=== PATIENT | male | born 1945 | race Caucasian/White ===

== ENCOUNTER → 2017-11-08 | Outpatient (REF) | payer MEDICARE, OTHER ==
[2017-11-08 16:51] LABS: HEMATOCRIT 37.5 % (42.0-52.0); HEMOGLOBIN 12.7 g/dl (14.0-18.0); MEAN CORPUSCULAR HEMOGLOBIN 30.3 pg (27.0-33.0); MEAN CORPUSCULAR HGB CONC 33.9 g/dl (32.0-36.5); MEAN CORPUSCULAR VOLUME 89.5 fl (80.0-96.0); PLATELET COUNT, AUTOMATED 256 10^3/uL (150-450); RED BLOOD COUNT 4.19 10^6/uL (4.30-6.10); RED CELL DISTRIBUTION WIDTH 13.6 % (11.5-14.5); WHITE BLOOD COUNT 10.1 10^3/uL (4.0-10.0)
[2017-11-08 17:08] LABS: ALBUMIN 3.6 GM/DL (3.2-5.2); ALBUMIN/GLOBULIN RATIO 1.03 (1.00-1.93); ALKALINE PHOSPHATASE 115 U/L (45-117); ALT/SGPT 25 U/L (12-78); ANION GAP 6 MEQ/L (8-16); AST/SGOT 19 U/L (7-37); BLOOD UREA NITROGEN 28 MG/DL (7-18); C REACTIVE PROTEIN QUANTITATIV 1.04 MG/DL (0.00-0.30); CALCIUM LEVEL 9.7 MG/DL (8.8-10.2); CARBON DIOXIDE LEVEL 30 MEQ/L (21-32); CHLORIDE LEVEL 97 MEQ/L (98-107); CREATININE FOR GFR 1.29 MG/DL (0.70-1.30); GLOMERULAR FILTRATION RATE 58.5 (>42); GLUCOSE, FASTING 239 MG/DL (70-100); POTASSIUM SERUM 4.9 MEQ/L (3.5-5.1); SODIUM LEVEL 133 MEQ/L (136-145); TOTAL PROTEIN 7.1 GM/DL (6.4-8.2)
[2017-11-08 17:12] LABS: ESTIMATED AVERAGE GLUCOSE 177 MG/DL (60-110); HEMOGLOBIN A1c 7.8 %
[2017-11-08 18:27] LABS: ERYTHROCYTE SEDIMENTATION RATE 56 mm/hr (0-20)
== END ==
LOC: M LAB REF 13:58
DX: E11.621 Type 2 diabetes mellitus with foot ulcer (principal)
CPT/HCPCS: 80053

== ENCOUNTER → 2017-11-22 | Outpatient (REF) | payer MEDICARE, OTHER | LOC: M LAB REF 16:59 | DX: E11.621 Type 2 diabetes mellitus with foot ulcer (principal) | CPT/HCPCS: 88304 ==

== ENCOUNTER → 2017-11-22 | Outpatient (CLI) | payer MEDICARE, OTHER | LOC: M RAD 08:14 | DX: E11.621 Type 2 diabetes mellitus with foot ulcer (principal); I70.209 Unspecified atherosclerosis of native arteries of extremities, unspecified extremity; I77.1 Stricture of artery | CPT/HCPCS: 93923 ==

== ENCOUNTER → 2017-12-06 | Outpatient (REF) | payer MEDICARE, OTHER | LOC: M LAB REF 16:44 | DX: E11.622 Type 2 diabetes mellitus with other skin ulcer (principal) | CPT/HCPCS: 87077; 87186 ==

== ENCOUNTER 2017-12-27 14:43 | Outpatient (CLI) | payer MEDICARE, OTHER ==
[2017-12-27] MEDS: VANCOMYCIN HCL 1,000 MG, VIAL MATE ADAPTER 1 EACH in D5W 250 ML IV (15:59)
[2017-12-27] MEDS: SODIUM CHLORIDE 0.9% INJ 10 ML SYR IV (17:08)
[2017-12-27] MEDS ORDERED: SODIUM CHLORIDE 0.9% INJ 10 ML SYR IV (18:00)
== END 2017-12-27 17:30 | disposition home or self-care (01) ==
LOC: M INFU 14:43
DX: M86.262 Subacute osteomyelitis, left tibia and fibula (principal); I12.9 Hypertensive chronic kidney disease with stage 1 through stage 4 chronic kidney disease, or unspecified chronic kidney disease; E78.00 Pure hypercholesterolemia, unspecified; E11.9 Type 2 diabetes mellitus without complications; K57.30 Diverticulosis of large intestine without perforation or abscess without bleeding; N18.3 Chronic kidney disease, stage 3 (moderate); Z79.4 Long term (current) use of insulin; Z79.899 Other long term (current) drug therapy; Z79.891 Long term (current) use of opiate analgesic
CPT/HCPCS: J3370

== ENCOUNTER → 2017-12-27 | Outpatient (CLI) | payer MEDICARE, OTHER | LOC: M RADPRO 12:06 | DX: M86.262 Subacute osteomyelitis, left tibia and fibula (principal) | CPT/HCPCS: 36569 ==

== ENCOUNTER → 2017-12-31 | Outpatient (CLI) | payer MEDICARE, OTHER ==
[2017-12-31 18:47] LABS: ANION GAP 6 MEQ/L (8-16); BLOOD UREA NITROGEN 23 MG/DL (7-18); CALCIUM LEVEL 8.9 MG/DL (8.8-10.2); CARBON DIOXIDE LEVEL 26 MEQ/L (21-32); CHLORIDE LEVEL 109 MEQ/L (98-107); CREATININE FOR GFR 1.51 MG/DL (0.70-1.30); GLOMERULAR FILTRATION RATE 48.7 (>42); GLUCOSE, FASTING 156 MG/DL (70-100); POTASSIUM SERUM 4.8 MEQ/L (3.5-5.1); SODIUM LEVEL 141 MEQ/L (136-145)
[2017-12-31 18:51] LABS: BASO % 0.4 % (0.0-1.0); EOS # 0.3 10^3/uL (0.0-0.50); EOS % 2.7 % (0.0-3.0); HEMATOCRIT 32.3 % (42.0-52.0); IMMATURE GRANULOCYTE % 0.3 % (0-3.0); LYMPH # 2.2 10^3/uL (1.5-4.5); LYMPH % 22.9 % (24.0-44.0); MEAN CORPUSCULAR HEMOGLOBIN 30.6 pg (27.0-33.0); MEAN CORPUSCULAR HGB CONC 34.1 g/dl (32.0-36.5); MONO # 0.7 10^3/uL (0.0-0.8); MONO % 7.1 % (0.0-5.0); NEUTROPHILS # 6.3 10^3/uL (1.8-7.7); NEUTROPHILS % 66.6 % (36.0-66.0); PLATELET COUNT, AUTOMATED 225 10^3/uL (150-450); RED BLOOD COUNT 3.59 10^6/uL (4.30-6.10); RED CELL DISTRIBUTION WIDTH 14.6 % (11.5-14.5); WHITE BLOOD COUNT 9.5 10^3/uL (4.0-10.0)
== END ==
LOC: M LAB 17:07
DX: I70.213 Atherosclerosis of native arteries of extremities with intermittent claudication, bilateral legs (principal)
CPT/HCPCS: 80048

== ENCOUNTER → 2018-01-04 | Outpatient (CLI) | payer MEDICARE, OTHER ==
[~2018-01-04] MED LIST: ACETAMINOPHEN 325 MG TAB As Ordered; HEPARIN 1,000 UNITS/ML 10ML VIAL (FOR RADIOLOGY& DIALYSIS ONLY) As Ordered; ISOVUE-300 61% 50ML VIAL (Q9967) As Ordered; MIDAZOLAM INJ 2 MG/2 ML VIAL (J2250) As Ordered; fentaNYL 100 MCG/2 ML INJECTION (J3010) As Ordered
== END | disposition home or self-care (01) ==
LOC: M IRPRO 06:07
DX: I70.244 Atherosclerosis of native arteries of left leg with ulceration of heel and midfoot (principal); L97.429 Non-pressure chronic ulcer of left heel and midfoot with unspecified severity; I70.245 Atherosclerosis of native arteries of left leg with ulceration of other part of foot; L97.529 Non-pressure chronic ulcer of other part of left foot with unspecified severity; N18.9 Chronic kidney disease, unspecified
CPT/HCPCS: 36247

== ENCOUNTER → 2018-01-15 | Outpatient (CLI) | payer MEDICARE, OTHER ==
[~2018-01-15] MED LIST changes: -ACETAMINOPHEN 325 MG TAB As Ordered; +PROTAMINE SULF INJ 50 MG/5 ML VIAL (J2720) As Ordered
== END | disposition home or self-care (01) ==
LOC: M IRPRO 06:27
DX: I70.292 Other atherosclerosis of native arteries of extremities, left leg (principal); E11.22 Type 2 diabetes mellitus with diabetic chronic kidney disease; I12.9 Hypertensive chronic kidney disease with stage 1 through stage 4 chronic kidney disease, or unspecified chronic kidney disease; N18.9 Chronic kidney disease, unspecified; E78.00 Pure hypercholesterolemia, unspecified
CPT/HCPCS: 37225

== ENCOUNTER 2018-01-17 10:21 | Outpatient (CLI) | payer MEDICARE, OTHER ==
[2018-01-17] MEDS: DALBAVANCIN 1,500 MG in D5W 250 ML IV (11:27)
[2018-01-17] MEDS: SODIUM CHLORIDE 0.9% INJ 10 ML SYR IV ×2 (12:34)
[2018-01-17] MEDS ORDERED: SODIUM CHLORIDE 0.9% INJ 10 ML SYR IV ×2 (18:00)
== END 2018-01-17 12:40 | disposition home or self-care (01) ==
LOC: M INFU 10:21
DX: M86.262 Subacute osteomyelitis, left tibia and fibula (principal); E11.9 Type 2 diabetes mellitus without complications; I12.9 Hypertensive chronic kidney disease with stage 1 through stage 4 chronic kidney disease, or unspecified chronic kidney disease; E78.00 Pure hypercholesterolemia, unspecified; G47.30 Sleep apnea, unspecified; N18.3 Chronic kidney disease, stage 3 (moderate); M54.2 Cervicalgia; Z97.4 Presence of external hearing-aid; Z79.891 Long term (current) use of opiate analgesic; Z79.899 Other long term (current) drug therapy
CPT/HCPCS: J0875

== ENCOUNTER 2018-01-21 13:11 | Outpatient (CLI) | payer MEDICARE, OTHER ==
[2018-01-21] MEDS: ALTEPLASE 2 MG/2 ML VIAL (J2997 PER 1MG) IV ×3 (13:22)
[2018-01-21] MEDS: SODIUM CHLORIDE 0.9% INJ 10 ML SYR IV ×3 (14:12)
[2018-01-21] MEDS ORDERED: SODIUM CHLORIDE 0.9% INJ 10 ML SYR IV ×3 (18:00)
== END 2018-01-21 14:30 | disposition home or self-care (01) ==
LOC: M INFU 13:11
DX: M86.262 Subacute osteomyelitis, left tibia and fibula (principal); E11.622 Type 2 diabetes mellitus with other skin ulcer; I12.9 Hypertensive chronic kidney disease with stage 1 through stage 4 chronic kidney disease, or unspecified chronic kidney disease; L97.323 Non-pressure chronic ulcer of left ankle with necrosis of muscle; E78.00 Pure hypercholesterolemia, unspecified; G47.30 Sleep apnea, unspecified; N18.3 Chronic kidney disease, stage 3 (moderate); M12.9 Arthropathy, unspecified; Z79.4 Long term (current) use of insulin; Z79.891 Long term (current) use of opiate analgesic; Z79.899 Other long term (current) drug therapy
CPT/HCPCS: J2997

== ENCOUNTER 2018-01-30 12:56 | Outpatient (CLI) | payer MEDICARE, OTHER ==
[2018-01-30] MEDS: DALBAVANCIN 1,500 MG in D5W 250 ML IV (14:20)
[2018-01-30] MEDS: SODIUM CHLORIDE 0.9% INJ 10 ML SYR IV (15:04)
[2018-01-30] MEDS ORDERED: SODIUM CHLORIDE 0.9% INJ 10 ML SYR IV (18:00)
== END 2018-01-30 15:15 | disposition home or self-care (01) ==
LOC: M INFU 12:56
DX: M86.662 Other chronic osteomyelitis, left tibia and fibula (principal); L97.323 Non-pressure chronic ulcer of left ankle with necrosis of muscle; Z79.899 Other long term (current) drug therapy; Z79.4 Long term (current) use of insulin; E11.622 Type 2 diabetes mellitus with other skin ulcer
CPT/HCPCS: J0875

== ENCOUNTER 2018-02-08 12:29 | Outpatient (CLI) | payer MEDICARE, OTHER ==
[2018-02-08] MEDS ORDERED: DALBAVANCIN 1,500 MG in D5W 250 ML IV (13:00)
[2018-02-08 14:00] LABS: ANION GAP 9 MEQ/L (8-16); BLOOD UREA NITROGEN 23 MG/DL (7-18); C REACTIVE PROTEIN QUANTITATIV 0.79 MG/DL (0.00-0.30); CARBON DIOXIDE LEVEL 25 MEQ/L (21-32); CHLORIDE LEVEL 107 MEQ/L (98-107); CREATININE FOR GFR 1.16 MG/DL (0.70-1.30); GLOMERULAR FILTRATION RATE > 60.0 (>42); GLUCOSE, FASTING 244 MG/DL (70-100); POTASSIUM SERUM 4.2 MEQ/L (3.5-5.1); SODIUM LEVEL 141 MEQ/L (136-145)
[2018-02-08 14:28] LABS: BASO # 0.1 10^3/uL (0.0-0.2); EOS # 0.2 10^3/uL (0.0-0.50); EOS % 3.6 % (0.0-3.0); HEMATOCRIT 30.5 % (42.0-52.0); HEMOGLOBIN 10.7 g/dl (13.5-17.5); IMMATURE GRANULOCYTE % 0.2 % (0-3.0); LYMPH # 1.3 10^3/uL (1.5-4.5); LYMPH % 20.4 % (24.0-44.0); MEAN CORPUSCULAR HGB CONC 35.1 g/dl (32.0-36.5); MEAN CORPUSCULAR VOLUME 88.4 fl (80.0-96.0); MONO # 0.5 10^3/uL (0.0-0.8); MONO % 7.8 % (0.0-5.0); NEUTROPHILS # 4.2 10^3/uL (1.8-7.7); PLATELET COUNT, AUTOMATED 175 10^3/uL (150-450); RED BLOOD COUNT 3.45 10^6/uL (4.30-6.10); RED CELL DISTRIBUTION WIDTH 13.2 % (11.5-14.5); WHITE BLOOD COUNT 6.2 10^3/uL (4.0-10.0)
[2018-02-08 15:03] LABS: ERYTHROCYTE SEDIMENTATION RATE 37 mm/hr (0-20)
[2018-02-11 15:31] LABS: ALBUMIN 3.6 GM/DL (3.2-5.2)
== END 2018-02-08 14:20 | disposition home or self-care (01) ==
LOC: M INFU 12:29
DX: M86.662 Other chronic osteomyelitis, left tibia and fibula (principal); L97.323 Non-pressure chronic ulcer of left ankle with necrosis of muscle; E11.622 Type 2 diabetes mellitus with other skin ulcer; Z79.899 Other long term (current) drug therapy; Z79.4 Long term (current) use of insulin
CPT/HCPCS: 82040

== ENCOUNTER → 2018-02-15 | Outpatient (CLI) | payer MEDICARE, OTHER | LOC: M RAD 12:27 | DX: I73.9 Peripheral vascular disease, unspecified (principal); Z98.61 Coronary angioplasty status; E11.622 Type 2 diabetes mellitus with other skin ulcer; L97.323 Non-pressure chronic ulcer of left ankle with necrosis of muscle | CPT/HCPCS: 93926 ==

== ENCOUNTER → 2018-02-19 | Outpatient (REF) | payer MEDICARE, OTHER ==
[2018-02-19 18:14] LABS: FERRITIN 105 NG/ML (26-388); IRON (FE) 49 UG/DL (65-175); PERCENT SATURATION 20.3 % (19.7-50.0); TOTAL IRON BINDING CAPACITY 241 UG/DL (250-450)
[2018-02-20 11:07] LABS: VITAMIN B12 LEVEL 639 PG/ML
== END ==
LOC: M LAB REF 17:19
DX: D64.9 Anemia, unspecified (principal); E11.622 Type 2 diabetes mellitus with other skin ulcer; L97.323 Non-pressure chronic ulcer of left ankle with necrosis of muscle
CPT/HCPCS: 82746

== ENCOUNTER → 2018-02-21 | Outpatient (REF) | payer MEDICARE, OTHER ==
[2018-02-21 15:42] LABS: BASO # 0.1 10^3/uL (0.0-0.2); BASO % 0.8 % (0.0-1.0); EOS # 0.3 10^3/uL (0.0-0.50); EOS % 3.2 % (0.0-3.0); HEMATOCRIT 32.6 % (42.0-52.0); HEMOGLOBIN 10.8 g/dl (13.5-17.5); IMMATURE GRANULOCYTE % 0.9 % (0-3.0); LYMPH # 1.7 10^3/uL (1.5-4.5); LYMPH % 21.6 % (24.0-44.0); MEAN CORPUSCULAR HEMOGLOBIN 30.7 pg (27.0-33.0); MEAN CORPUSCULAR HGB CONC 33.1 g/dl (32.0-36.5); MEAN CORPUSCULAR VOLUME 92.6 fl (80.0-96.0); MONO # 0.7 10^3/uL (0.0-0.8); MONO % 8.3 % (0.0-5.0); NEUTROPHILS # 5.2 10^3/uL (1.8-7.7); NEUTROPHILS % 65.2 % (36.0-66.0); PLATELET COUNT, AUTOMATED 228 10^3/uL (150-450); RED BLOOD COUNT 3.52 10^6/uL (4.30-6.10); RED CELL DISTRIBUTION WIDTH 13.8 % (11.5-14.5); WHITE BLOOD COUNT 7.9 10^3/uL (4.0-10.0)
[2018-02-21 16:17] LABS: C REACTIVE PROTEIN QUANTITATIV 1.56 MG/DL (0.00-0.30)
[2018-02-21 16:18] LABS: ERYTHROCYTE SEDIMENTATION RATE 52 mm/hr (0-20)
== END ==
LOC: M SFHCWOUN 13:04
DX: M86.262 Subacute osteomyelitis, left tibia and fibula (principal); E11.622 Type 2 diabetes mellitus with other skin ulcer; L97.323 Non-pressure chronic ulcer of left ankle with necrosis of muscle; B95.2 Enterococcus as the cause of diseases classified elsewhere
CPT/HCPCS: 86140

== ENCOUNTER → 2018-03-01 | Outpatient (CLI) | payer MEDICARE, OTHER | LOC: M RAD 07:36 | DX: N28.1 Cyst of kidney, acquired (principal); N18.3 Chronic kidney disease, stage 3 (moderate); E11.22 Type 2 diabetes mellitus with diabetic chronic kidney disease; E11.621 Type 2 diabetes mellitus with foot ulcer; L97.323 Non-pressure chronic ulcer of left ankle with necrosis of muscle; I70.1 Atherosclerosis of renal artery; I15.0 Renovascular hypertension | CPT/HCPCS: 76775 ==

== ENCOUNTER → 2018-03-05 | Outpatient (REF) | payer MEDICARE, OTHER ==
[2018-03-05 15:45] LABS: BASO # 0.1 10^3/uL (0.0-0.2); BASO % 0.7 % (0.0-1.0); EOS # 0.2 10^3/uL (0.0-0.50); EOS % 2.2 % (0.0-3.0); HEMATOCRIT 34.1 % (42.0-52.0); HEMOGLOBIN 11.3 g/dl (13.5-17.5); IMMATURE GRANULOCYTE % 0.7 % (0-3.0); LYMPH # 1.4 10^3/uL (1.5-4.5); LYMPH % 18.1 % (24.0-44.0); MEAN CORPUSCULAR HEMOGLOBIN 30.5 pg (27.0-33.0); MEAN CORPUSCULAR HGB CONC 33.1 g/dl (32.0-36.5); MEAN CORPUSCULAR VOLUME 91.9 fl (80.0-96.0); MONO # 0.7 10^3/uL (0.0-0.8); MONO % 9.5 % (0.0-5.0); NEUTROPHILS # 5.2 10^3/uL (1.8-7.7); NEUTROPHILS % 68.8 % (36.0-66.0); PLATELET COUNT, AUTOMATED 229 10^3/uL (150-450); RED BLOOD COUNT 3.71 10^6/uL (4.30-6.10); RED CELL DISTRIBUTION WIDTH 12.7 % (11.5-14.5); WHITE BLOOD COUNT 7.6 10^3/uL (4.0-10.0)
[2018-03-05 16:01] LABS: ESTIMATED AVERAGE GLUCOSE 171 MG/DL (60-110); HEMOGLOBIN A1c 7.6 %
[2018-03-05 16:07] LABS: ANION GAP 7 MEQ/L (8-16); BLOOD UREA NITROGEN 19 MG/DL (7-18); C REACTIVE PROTEIN QUANTITATIV 3.37 MG/DL (0.00-0.30); CALCIUM LEVEL 8.5 MG/DL (8.8-10.2); CARBON DIOXIDE LEVEL 30 MEQ/L (21-32); CHLORIDE LEVEL 107 MEQ/L (98-107); CREATININE FOR GFR 1.08 MG/DL (0.70-1.30); GLOMERULAR FILTRATION RATE > 60.0 (>42); GLUCOSE, FASTING 146 MG/DL (70-100); POTASSIUM SERUM 4.3 MEQ/L (3.5-5.1); SODIUM LEVEL 144 MEQ/L (136-145)
== END ==
LOC: M SFHCPLAZ 13:37
DX: L97.323 Non-pressure chronic ulcer of left ankle with necrosis of muscle (principal); E11.622 Type 2 diabetes mellitus with other skin ulcer
CPT/HCPCS: 83036

== ENCOUNTER → 2018-03-07 | Outpatient (REF) | payer MEDICARE, OTHER | LOC: M LAB REF 16:49 | DX: E11.622 Type 2 diabetes mellitus with other skin ulcer (principal); L97.323 Non-pressure chronic ulcer of left ankle with necrosis of muscle | CPT/HCPCS: 87070; 87186 ==

== ENCOUNTER → 2018-08-08 | Outpatient (CLI) | payer MEDICARE, OTHER ==
[~2018-08-08] MED LIST changes: +ACID1CAP PO; +ATEN25TA PO; +ATOR1TAB19 PO; +CALC1TAB5 PO; +CLOP75TA2 PO; +DONETAB6 PO; +FERR325T3 PO; +FINA5TAB2 PO; +FURO20TA2 PO; +FURO40TA2 PO; +GABA-843 PO; -HEPARIN 1,000 UNITS/ML 10ML VIAL (FOR RADIOLOGY& DIALYSIS ONLY) As Ordered; +INSUH10VL SC; -ISOVUE-300 61% 50ML VIAL (Q9967) As Ordered; +LEVE1INJ5 SC; -MIDAZOLAM INJ 2 MG/2 ML VIAL (J2250) As Ordered; +MULT1TAB8 PO; -PROTAMINE SULF INJ 50 MG/5 ML VIAL (J2720) As Ordered; +TRAM50TA2 PO; +TYLE325C PO; +VITA500T PO; -fentaNYL 100 MCG/2 ML INJECTION (J3010) As Ordered
--- NOTE | 2018-08-08 14:29 | REP ---
Left lower extremity arterial Doppler ultrasound: History: Status post atherectomy and angioplasty . Ankle ulcer. Sonographic findings: Ankle brachial index could not be obtained due to ankle dressing and calcified vessel. Significant plaquing is seen as before. Velocities acquired are similar to the those seen February 06, 2018. Velocity chart left lower extremity: Left SEED COLLECTOR 102 cm/S, profunda 65, proximal SFA 78-105, mid SFA 78, distal SFA 152-171, popliteal and 25, proximal AT A 34, tibioperoneal trunk 94, proximal BLASTING CONTRACT MINER 33, distal BLASTING CONTRACT MINER 26, distal SARAH 105. Electronically Signed by Jagdeep More MD 08/08/2018 03:13 P
== END ==
LOC: M RAD 12:16
PROVIDERS: ATTEND Surgery Vascular Surgery
DX: I73.9 Peripheral vascular disease, unspecified (principal)
CPT/HCPCS: 15275; 93926; Q4131

== ENCOUNTER → 2019-03-25 | Outpatient (CLI) | payer MEDICARE, OTHER ==
--- NOTE | 2019-03-25 19:32 | REP ---
LEFT LOWER EXTREMITY DUPLEX DOPPLER ARTERIAL ULTRASOUND: Real-time ultrasound evaluation and duplex Doppler interrogation of both lower extremity arterial systems is performed and compared to prior study of 08/08/2018. There is again significant plaque seen in the proximal left superficial femoral artery with stenosis of the proximal and distal superficial femoral artery. This appears similar to the prior study. There is new occlusion of the distal left posterior tibial artery. Diffuse biphasic wave forms are seen except for monophasic wave form in the distal anterior tibial artery. LEFT Common femoral artery 94.3 cm/s Profunda 63.4 cm/s Proximal SFA 109 cm/s Mid SFA 107.7 cm/s Distal SFA 187 cm/s Popliteal 97 cm/s Proximal SARAH 56.4 cm/s Tibioperoneal trunk 112.8 cm/s Proximal BALANCE TRUING INSPECTOR 51.3 cm/s Distal BALANCE TRUING INSPECTOR occluded Distal SARAH 111.2 cm/s IMPRESSION: Stenosis left superficial femoral artery appears similar to the prior study. There is new occlusion of the distal left posterior tibial artery. Electronically Signed by Nate Alba MD 03/26/2019 10:58 A
== END ==
LOC: M RAD 14:19
PROVIDERS: ATTEND Surgery Vascular Surgery
DX: I70.243 Atherosclerosis of native arteries of left leg with ulceration of ankle (principal)

== ENCOUNTER 2020-02-09 02:10 | Inpatient (IN) | payer MEDICARE, OTHER ==
[2020-02-09] VITALS (9 sets, daily range): BP systolic 135–177; BP diastolic 58–67; O2SAT 100
[~2020-02-09] VITALS: Ht 162.6 cm; Wt 87.2 kg
[~2020-02-09 02:10] MED LIST changes: +GABA-282 PO; -GABA-843 PO; +VITA-243 PO; -VITA500T PO
[2020-02-09] MEDS ORDERED: CINN1CAP6 PO (06:25)
[2020-02-09] MEDS ORDERED: ACIDTAB3 PO (06:25)
[2020-02-09] MEDS ORDERED: CALCCAP4 PO (06:25)
[2020-02-09] MEDS ORDERED: BYDU2INJ7 SC (06:25)
[2020-02-09] MEDS ORDERED: RA M200C4 PO (06:25)
[2020-02-09] MEDS ORDERED: HYDR-3910 PO (06:25)
[2020-02-09] MEDS ORDERED: ACET1TAB55 PO (06:25)
[2020-02-09] MEDS ORDERED: ZINC1TAB2 PO (06:25)
[2020-02-09] MEDS ORDERED: VITA200010 PO (06:25)
[2020-02-09] MEDS ORDERED: RAMI1CAP21 PO (06:27)
--- NOTE | 2020-02-09 06:38 | HPEPDOC ---
[facility] Medical History & Physical Date of Admission Feb 09, 2020 Date of Service: Feb 09, 2020 Attending Physician: RHONDA BRIGGS MD History and Physical CHIEF COMPLAINT: Transferred for osteomyelitis HISTORY OF PRESENT ILLNESS: 74-year-old male with past medical history of diabet es mellitus, chronic kidney disease, hypertension and recurrent diabetic foot infections is transferred to [facility] for gangrene and osteomyelitis of right foot. Patient reports infection of second toe on the right foot 3 weeks ago, being treated by PCP with oral antibiotics, continued to worsen until the digit started becoming black 5 days ago and progressively wor sening with swelling, redness and pain in the foot. He was transferred to [facility] for podiatry evaluation for possible surgical intervention. Patient denies any fever, has no other symptoms at this time. He denies chest pain, nausea, vomiting, diarrhea or constipation. 10 point review of system is negative except for above PAST MEDICAL HISTORY: 1. Diabetes mellitus. 2. Chronic kidney disease. 3. Hypertension. 4. Diabetic foot infections PAST SURGICAL HISTORY: 1. Tonsillectomy. SOCIAL HISTORY: Previous smoker. Previous alcohol use. Denies drug use FAMILY HISTORY: Positive for heart disease ALLERGIES: Please see below. HOME MEDICATIONS: Please see below. PHYSICAL EXAMINATION: VITAL SIGNS: Please see below. GENERAL: No distress HEENT: Normocephalic, atraumatic, moist mucous membranes NECK: Supple CARDIOVASCULAR EXAMINATION: S1, S2, no murmurs RESPIRATORY EXAMINATION: Scattered rhonchi, diminished in the bases, no wheezing ABDOMINAL EXAMINATION: Soft, nontender, nondistended, positive bowel sounds EXTREMITIES: Right foot second digit with dry gangrene, surrounding erythema, swelling and tenderness to palpation SKIN: No rash NEUROLOGICAL EXAMINATION: Alert and oriented 3, no focal deficits PSYCHIATRIC EXAMINATION: Calm and cooperative LABORATORY DATA: See below. IMAGING: CT from transferring facility is compatible with osteomyelitis in second toe of right foot MICROBIOLOGY: Please see below. ASSESSMENT: 74-year-old male with multiple medical comorbidities including diabetes mellitus, chronic kidney disease, hypertension and diabetic foot wounds is being admitted for dry gangrene and osteomyelitis of right foot. PLAN: 1. Osteomyelitis. With dry gangrene of second digit in the right foot, worsening infection over the past 3 weeks, failed outpatient oral antibiotics, CT from transferring facility, consistent with osteomyelitis, creatinine elevated, baseline unknown, has history of chronic kidney disease, will avoid vancomycin for that reason, Zyvox/cefepime, cultures pending, podiatry consulted (Dr. Mariano). 2. Diabetes mellitus. Sliding scale insulin coverage every 6 hours 3. Hypertension. Continue hydralazine and atenolol. 4. Peripheral vascular disease. Continue Plavix and statin. 5. Chronic kidney disease. Creatinine 2.0, unknown baseline, hold Lasix and lisinopril, will trend. DVT prophylaxis: Heparin subcutaneous. GI prophylaxis: Not needed Home Medications Scheduled Ascorbic Acid (Vitamin C) 500 Mg Tab, 500 MG PO DAILY Atenolol (Atenolol) 25 Mg Tab, 25 MG PO DAILY Atorvastatin Calcium (Atorvastatin Calcium) 10 Mg Tab, 10 MG PO DAILY Calcium Carbonate/Vitamin D3 (Calcium 600 + Vit D 400 Softgl) 1 Each Capsule, 1 CAP PO DAILY Cholecalciferol (Vitamin D3) (Vitamin D3) 50 Mcg Tablet, 50 MCG PO BID Cinnamon Bark/Chromium Picolin (Cinnamon Plus Chromium Capsule) 1 Each Capsule, 1 CAP PO BID Clopidogrel Bisulfate (Clopidogrel) 75 Mg Tab, 75 MG PO DAILY Donepezil Hcl (Donepezil HCl Odt) 10 Mg Tab, 10 MG PO BID Exenatide Microspheres (Bydureon Bcise) 2 Mg/0.85 Ml Auto.injct, 2 MG SC Q7D SUNDAY Ferrous Sulfate (Ferrous Sulfate) 325 Mg Tab, 325 MG PO DAILY Finasteride (Finasteride) 5 Mg Tab, 5 MG PO DAILY Furosemide (Furosemide) 20 Mg Tab, 20 MG PO DAILY Gabapentin (Gabapentin) 300 Mg Cap, 300 MG PO TID Hydralazine HCl (Hydralazine HCl) 25 Mg Tablet, 25 MG PO BID Insulin Detemir (Levemir Flextouch) 100 Unit/Ml Inj, 50 UNIT SC BID L. Acidophilus/Pectin, [place] (Acidophilus Caplet) 1 Each Tablet, 1 TAB PO DAILY Milk Thistle Seed Extract (Milk Thistle) 200 Mg Capsule, 200 MG PO BID Multivitamin (Multi-Vitamin Daily) 1 Tab Tab, 1 TAB PO DAILY Zinc (Zinc) 50 Mg Tablet, 50 MG PO DAILY Scheduled PRN Acetaminophen (Acetaminophen) 325 Mg Tablet, 325 MG PO Q4-6H PRN for PAIN Tramadol HCl (Tramadol HCl) 50 Mg Tab, 50 MG PO Q6H PRN for PAIN Allergies Coded Allergies: No Known Allergies (Unverified , 12/27/17) A-FIB/CHADSVASC A-FIB History Current/History of A-Fib/PAF?: No RHONDA BRIGGS MD Feb 09, 2020 06:38
[2020-02-09] MEDS ORDERED: GLUCOSE 4GM CHEW TABLET PO PRN (06:45)
[2020-02-09] MEDS ORDERED: GLUCAGON INJ 1MG VIAL SC PRN (06:45)
[2020-02-09] MEDS ORDERED: traMADol 50 MG TAB PO PRN (06:45)
[2020-02-09] MEDS ORDERED: DEXTROSE 50% 50 ML SYRINGE IV PRN (06:45)
[2020-02-09] MEDS: HumaLOG INSULIN (NovoLOG) PER UNIT SC SCH ×4 (07:15→20:11)
[2020-02-09 07:24] LABS: HEMATOCRIT 32.3 % (42.0-52.0); HEMOGLOBIN 10.6 g/dl (13.5-17.5); MEAN CORPUSCULAR HEMOGLOBIN 31.5 pg (27.0-33.0); MEAN CORPUSCULAR HGB CONC 32.8 g/dl (32.0-36.5); MEAN CORPUSCULAR VOLUME 95.8 fl (80.0-96.0); PLATELET COUNT, AUTOMATED 240 10^3/uL (150-450); RED BLOOD COUNT 3.37 10^6/uL (4.30-6.10); WHITE BLOOD COUNT 24.2 10^3/uL (4.0-10.0)
[2020-02-09 07:32] LABS: ALBUMIN 2.9 GM/DL (3.2-5.2); BILIRUBIN,TOTAL 0.6 MG/DL (0.2-1.0); CALCIUM LEVEL 8.5 MG/DL (8.8-10.2); CREATININE FOR GFR 1.93 MG/DL (0.70-1.30); GLOMERULAR FILTRATION RATE 36.5 (>42); POTASSIUM SERUM 5.1 MEQ/L (3.5-5.1); TOTAL PROTEIN 6.7 GM/DL (6.4-8.2)
[2020-02-09 07:45] LABS: INR 1.14; PROTHROMBIN TIME 14.3 SECONDS (11.8-14.0)
[2020-02-09] MEDS: ASCORBIC ACID 500 MG TAB PO SCH (08:55)
[2020-02-09] MEDS: CLOPIDOGREL 75 MG TAB PO SCH (08:55)
[2020-02-09] MEDS: **hydrALAZINE HCL** 25 MG TAB PO SCH ×2 (08:55→20:14)
[2020-02-09] MEDS: FERROUS SULFATE 325MG TAB PO SCH (08:55)
[2020-02-09] MEDS: FINASTERIDE 5 MG TAB PO SCH (08:55)
[2020-02-09] MEDS: GABAPENTIN 300 MG CAP PO SCH ×3 (08:55→20:13)
[2020-02-09] MEDS: atenoloL 25 MG TAB PO SCH (08:56)
[2020-02-09] MEDS: ATORVASTATIN 10 MG TAB PO SCH (08:56)
[2020-02-09] MEDS: LINEZOLID 600MG TABLET (ZYVOX) PO SCH ×2 (11:02→20:14)
--- NOTE | 2020-02-09 12:44 | IPNPDOC ---
Date Seen The patient was seen on 02/09/20. Progress Note Patient re-assessed since admission this AM. He is comfortable with reports of mild discomfort to the foot. Spoke to podiatry Dr. Healy, plan to take patient to OR this evening. MOON JIMÉNEZ MD Feb 09, 2020 12:44
[2020-02-09] MEDS: CEFEPIME HCL 1 GM in D5W MINI-BAG PLUS 50 ML IV SCH ×2 (13:01→20:10)
--- NOTE | 2020-02-09 14:38 | CR ---
DATE OF CONSULTATION: 02/09/2020 REASON FOR CONSULTATION: Right 2nd toe gangrene. Colby Ramirez is a pleasant 74-year-old male who was admitted due to worsening infection to his right toe. He has been trying to treat this with oral antibiotics over the last few days. The toe has since become black and become increased in redness and pain. PAST MEDICAL HISTORY: Significant for diabetes, chronic kidney disease, hypertension, peripheral vascular disease. SURGICAL HISTORY: Includes tonsillectomy. SOCIAL HISTORY: Denies alcohol use. Former smoker. ALLERGIES: No known drug allergies. VITAL SIGNS: Are examined. He has been afebrile since admission. LABORATORIES: Are examined. White blood cell count is 24.2, hemoglobin is 10.6, creatinine is 1.93. LOWER EXTREMITY EXAMINATION: On the right foot, there is erythema and edema extending from the right 2nd toe. The right 2nd toe is fully gangrenous with full black eschar with erythema line extending from the toe. 3rd toe is fairly cyanotic with delayed capillary refill. ASSESSMENT: A 74-year-old diabetic male with right foot gangrene. PLAN: He has been nothing by mouth. Will plan for amputation today. Arterial studies ordered. Will plan most likely vascular consultation tomorrow. He has not had followup with the vascular surgeon in over a year.
--- NOTE | 2020-02-09 14:39 | IPNPDOC ---
Subjective Date Seen The patient was seen on 02/09/20. Subjective Chief Complaint/HPI Patient is a 74 yo male with PMH of DM , CKD, HTN, and recurrent DM foot infections transferred from [facility] due to gangrene and osteomyelitis of right toe. Pt reported infection of second right toe tip 3 weeks ago and spreaded to the rest of toe a week ago. He presented to [facility] on 02/08/2020 for toe infection that started 2-3 weeks ago s/p outpatient ciprofloxacin and augmentin without any improvement. His toe presentation continued to worsen and the right 2nd toe began to turn dark 5 days prior to admission and progressively worsening with swelling, redness and pain in the foot. Pt was subsequently transferred to [facility] for podiatry evaluation for possible surgical intervention. CT right foot without contrast done in [facility] showed erosive changes of the 2nd distal phalanx at site of an open wound with findings compatible with osteomyelitis. Pt is eval at bedside today. He reported mild pain in his right foot. Reported some mild fever or chills. Denies any nausea, vomiting, chest pain, palpitation, abdominal pain. General: Reports: Chills Constitutional: Reports: Chills, Fever Pulmonary: Denies: Dyspnea Cardiovascular: Denies: Chest Pain, Palpitations Gastrointestinal: Denies: Nausea, Vomiting, Abdominal Pain Musculoskeletal: Reports: Foot Pain; Denies: Leg Pain Objective Physical Examination General Exam: Positive: Alert, Cooperative, No Acute Distress Eye Exam: Positive: Conjunctiva & lids normal; Negative: Sclera icteric ENT Exam: Positive: Atraumatic, Mucous membr. moist/pink Neck Exam: Positive: Supple Chest Exam: Positive: Normal air movement, Diminished; Negative: Rales, Rhonchi, Wheezing Heart Exam: Positive: Rate Normal, Regular Rhythm, Normal S1, Normal S2; Negative: Murmurs Abdomen Exam: Positive: Normal bowel sounds, Soft; Negative: Tenderness Extremity Exam: Positive: Other (Right foot second digit with eschar and dry gangrene) Skin Exam: Positive: Nl turgor and temperature; Negative: Rash Neuro Exam: Positive: Normal Speech, Normal Tone Psych Exam: Positive: Mental status NL, Anxiety (mild), Memory Intact, Oriented x 3 Assessment /Plan Assessment 1. 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 Podiatry following. Plan amputation today.With dry gangrene and eschar of second right toe,CT foot from [place] showed osteomyelitis of right 2nd distal phalanx. Leukocytosis. Cont Cefepime. IVF 2. CAM. Creat 1.93 higher than baseline around 1.2. Start pt on IVNS as pt also NPO for procedure. Recheck BMP. Hold home lasix and ramipril. 3. Diabetes mellitus. Glucose checks and sliding scale insulin coverage every 6 hours as pt is NPO for test/procedure. 3. Hypertension. Continue hydralazine and atenolol. 4. Peripheral vascular disease. Continue Plavix and statin. B/l LE arterial US ordered. Podiatry recommended vascular surgery consultation, pending b/l LE arterial US Plan/VTE VTE Prophylaxis Ordered?: Yes VS, I&O, 24H, Fishbone Vital Signs/I&O Vital Signs Date Time Temp Pulse Resp B/P (MAP) Pulse Ox O2 Delivery O2 Flow Rate FiO2 02/09/20 08:56 63 139/63 02/09/20 06:00 97.9 17 99 Room Air I&O- Last 24 Hours up to 6 AM 02/09/20 06:00 Intake Total 0 ml Balance 0 ml Laboratory Data 24H LABS Laboratory Tests 2 02/09/20 06:53: Nucleated Red Blood Cells % (auto) 0.0, Prothrombin Time 14.3H, Prothromb Time International Ratio 1.14, Anion Gap 9, Glomerular Filtration Rate 36.5L, Calcium Level 8.5L, Total Bilirubin 0.6, Aspartate Amino Transf (AST/SGOT) 20, Alanine Aminotransferase (ALT/SGPT) 18, Alkaline Phosphatase 103, Total Protein 6.7, Albumin 2.9L, Albumin/Globulin Ratio 0.8 02/09/20 11:28: Bedside Glucose (Misc Panel) 142H 02/09/20 12:25: Methicillin-Resist S.aureus DNA PCR NOT DETECTED CBC/BMP Laboratory Tests 02/09/20 06:53 Microbiology Microbiology 02/09/20 Respiratory Virus Panel (PCR) (ROS[facility]) - Final, Complete 02/09/20 Blood Culture, Received Pending 02/09/20 Blood Culture, Received Pending GME ATTESTATION I have personally evaluated and examined the patient. Discussed with resident/student regarding plan of care and agree with the above assessment and plan. ALANIS SAMANO DO Feb 09, 2020 14:39 MOON JIMÉNEZ MD Feb 11, 2020 18:17
[2020-02-09] MEDS ORDERED: NS 1,000 ML IV SCH (15:15)
[2020-02-09] MEDS ORDERED: LIDOCAINE 2% 100MG/5ML SDV (FOR ANES.) As Ordered ONE (15:57)
[2020-02-09] MEDS ORDERED: fentaNYL 100 MCG/2 ML INJECTION (J3010) As Ordered ONE (15:57)
[2020-02-09] MEDS ORDERED: propofoL 200 MG/20 ML VIAL As Ordered ONE (15:57)
[2020-02-09] MEDS ORDERED: LIDOCAINE 1% MDV 20ML VIAL As Ordered ONE (15:57)
[2020-02-09] MEDS ORDERED: MIDAZOLAM INJ 2MG/2ML VIAL (J2250 PER 1MG) As Ordered ONE (15:57)
[2020-02-09] MEDS ORDERED: BUPIVACAINE HCL 0.5% 10ML VIAL As Ordered ONE (15:57)
[2020-02-09] MEDS ORDERED: ONDANSETRON 4MG/2ML VIAL As Ordered ONE (16:32)
[2020-02-09] MEDS: HEPARIN SOD (PORCINE) 5000UNITS/ML 1ML VIAL/SYRINGE SQ SCH (20:11)
[2020-02-10] VITALS (7 sets, daily range): BP systolic 132–181; BP diastolic 59–98; O2SAT 97
[2020-02-10] MEDS: ACETAMINOPHEN 325 MG TAB PO PRN ×2 (03:37→16:24)
[2020-02-10 05:49] LABS: HEMOGLOBIN 10.2 g/dl (13.5-17.5); MEAN CORPUSCULAR HEMOGLOBIN 31.4 pg (27.0-33.0); MEAN CORPUSCULAR HGB CONC 32.9 g/dl (32.0-36.5); MEAN CORPUSCULAR VOLUME 95.4 fl (80.0-96.0); PLATELET COUNT, AUTOMATED 244 10^3/uL (150-450); RED BLOOD COUNT 3.25 10^6/uL (4.30-6.10); WHITE BLOOD COUNT 23.3 10^3/uL (4.0-10.0)
[2020-02-10 06:22] LABS: ALBUMIN 2.5 GM/DL (3.2-5.2); BILIRUBIN,TOTAL 0.5 MG/DL (0.2-1.0); CALCIUM LEVEL 7.8 MG/DL (8.8-10.2); CREATININE FOR GFR 1.39 MG/DL (0.70-1.30); GLOMERULAR FILTRATION RATE 53.3 (>42); POTASSIUM SERUM 4.5 MEQ/L (3.5-5.1); TOTAL PROTEIN 5.5 GM/DL (6.4-8.2)
[2020-02-10] MEDS: HumaLOG INSULIN (NovoLOG) PER UNIT SC SCH ×4 (08:08→20:16)
[2020-02-10] MEDS: CEFEPIME HCL 1 GM in D5W MINI-BAG PLUS 50 ML IV SCH ×2 (08:08→19:36)
[2020-02-10] MEDS: HEPARIN SOD (PORCINE) 5000UNITS/ML 1ML VIAL/SYRINGE SQ SCH ×2 (08:09→20:05)
[2020-02-10] MEDS: ASCORBIC ACID 500 MG TAB PO SCH (08:09)
[2020-02-10] MEDS: CLOPIDOGREL 75 MG TAB PO SCH (08:09)
[2020-02-10] MEDS: LINEZOLID 600MG TABLET (ZYVOX) PO SCH ×2 (08:09→20:05)
[2020-02-10] MEDS: GABAPENTIN 300 MG CAP PO SCH ×3 (08:09→20:05)
[2020-02-10] MEDS: ATORVASTATIN 10 MG TAB PO SCH (08:09)
[2020-02-10] MEDS: FERROUS SULFATE 325MG TAB PO SCH (08:10)
[2020-02-10] MEDS: FINASTERIDE 5 MG TAB PO SCH (08:10)
[2020-02-10] MEDS: atenoloL 25 MG TAB PO SCH (08:11)
[2020-02-10] MEDS: **hydrALAZINE HCL** 25 MG TAB PO SCH ×2 (08:12→20:05)
--- NOTE | 2020-02-10 08:13 | IPNPDOC ---
Subjective Date Seen The patient was seen on 02/10/20. Subjective Chief Complaint/HPI Pt reported 2-3/10 pain in his right 2nd toe. Pt was reported to be able to ambulate in the room well. Reported no fever or chills. He said there's achy constant 5/10 bilateral quadrant abd pain that has been present since yesterday without alleviating factor or aggravating factor; reported 1 green semi-formed color yesterday without blood; no BM today yet. He has a hx of diverticulitis, and reported that this is similar to when he had the diverticulitis prior. Denies suprapubic tenderness, dysuria, urgency, or frequency General: Denies: Chills Constitutional: Denies: Chills, Fever Skin: Denies: Jaundice Pulmonary: Denies: Dyspnea Cardiovascular: Denies: Chest Pain, Palpitations Gastrointestinal: Reports: Abdominal Pain, Diarrhea (1 yesterday); Denies: Nausea, Vomiting, Constipation, Hematochezia Genitourinary: Denies: Dysuria, Hematuria, Retention Musculoskeletal: Reports: Foot Pain (Right second toe pain); Denies: Leg Pain Objective Physical Examination General Exam: Positive: Alert, Cooperative, No Acute Distress Eye Exam: Positive: Conjunctiva & lids normal; Negative: Sclera icteric ENT Exam: Positive: Atraumatic, Mucous membr. moist/pink Neck Exam: Positive: Supple Chest Exam: Positive: Normal air movement, Diminished; Negative: Rales, Rhonchi, Wheezing Heart Exam: Positive: Rate Normal, Regular Rhythm, Normal S1, Normal S2; Negative: Murmurs Abdomen Exam: Positive: Normal bowel sounds, Soft; Negative: Tenderness Male Exam: Positive: Tenderness (b/l lower abd quadrants) Extremity Exam: Positive: Other (right foot wrapped with kerlix, mod amount serosanguinus drainage noted on kerlix noted) Skin Exam: Positive: Nl turgor and temperature; Negative: Rash Neuro Exam: Positive: Normal Speech, Normal Tone Psych Exam: Positive: Mental status NL, Mood NL, Memory Intact, Oriented x 3; Negative: Anxiety (mild) Assessment /Plan Assessment 1. 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 Podiatry following. With dry gangrene and eschar of second right toe,CT foot from [place] showed osteomyelitis of right 2nd distal phalanx. S/p right 2nd toe amputation. Leukocytosis mildly improving. Blood cx negX2, wound cx and pathology pending. Cont Cefepime. PT/OT. ARU screen; covid neg. 2. CAM, improving. Creat 1.93 upon admission higher than baseline around 1.2. Currently 1.39. Pt was started on IVNS prior to procedure. Hold home lasix and ramipril. IVNS was d/c for a brief period after procedure. Resume at 60ml/hr for 1000ml for CAM. Recheck BMP 3. Diabetes mellitus. Resume consistent carbohydrate diet. Glucose checks and sliding scale insulin coverage ACHS. 3. Hypertension. Continue hydralazine and atenolol. 4. Peripheral vascular disease. Continue Plavix and statin. B/l LE arterial US ordered. Podiatry recommended vascular surgery consultation, pending b/l LE arterial US however no vascular surgery available this week, recommend pt to follow up with vascular sugery outpatient 5. Bilateral lower abd pain, new onset. Started since 02/09/2020. Constant achy pain with one loose BM yesterday. Hx of diverticulitis. AST, ALT, alkphos, and bili wnl. CT abd/pelvis with contrast to r/o diverticulitis, pt creat elevated but<1.6, will ensure adequate IVF before and after IV contrast DISPO:2nd toe osteomyelitits s/p 2nd toe amputation pending PT/OT/ ARU screen. Mod abd pain with 1 loose BM,leukocytosis with hx of diverticulitis, CT abd/pelvis r/o diverticulitis Plan/VTE VTE Prophylaxis Ordered?: Yes Plan IVF: Initiate Diet: Advance Activity: Advance Therapy: PT, OT Respiratory: Wean Oxygen Diagnostics: Repeat Labs in AM VS, I&O, 24H, [facility] Vital Signs/I&O Vital Signs Date Time Temp Pulse Resp B/P (MAP) Pulse Ox O2 Delivery O2 Flow Rate FiO2 02/10/20 06:00 99.0 55 18 171/59 (96) 99 Nasal Cannula 3.0 I&O- Last 24 Hours up to 6 AM 02/10/20 06:00 Intake Total 1711 ml Output Total 475 ml Balance 1236 ml Laboratory Data 24H LABS Laboratory Tests 2 02/09/20 11:28: Bedside Glucose (Misc Panel) 142H 02/09/20 12:25: Methicillin-Resist S.aureus DNA PCR NOT DETECTED 02/09/20 17:49: Bedside Glucose (Misc Panel) 158H 02/09/20 20:09: Bedside Glucose (Misc Panel) 180H 02/10/20 05:01: Nucleated Red Blood Cells % (auto) 0.0, Anion Gap 4L, Glomerular Filtration Rate 53.3, Calcium Level 7.8L, Magnesium Level 2.0, Total Bilirubin 0.5, Aspartate Amino Transf (AST/SGOT) 18, Alanine Aminotransferase (ALT/SGPT) 17, Alkaline Phosphatase 106, Total Protein 5.5L, Albumin 2.5L, Albumin/Globulin Ratio 0.8 CBC/BMP Laboratory Tests 02/10/20 05:01 Microbiology Microbiology 02/09/20 Respiratory Virus Panel (PCR) ([facility]) - Final, Complete 02/09/20 Blood Culture - Preliminary, Resulted No growth after 24 hours . All specim... 02/09/20 Blood Culture - Preliminary, Resulted No growth after 24 hours . All specim... 02/09/20 Gram Stain, Received Pending 02/09/20 Wound Culture, Received Pending 02/09/20 Anaerobic Culture, Received Pending GME ATTESTATION I have personally evaluated and examined the patient. Discussed with resident/st epnnington regarding plan of care and agree with the above assessment and plan. ALANIS SAMANO DO Feb 10, 2020 08:12 MOON JIMÉNEZ MD Feb 11, 2020 18:19
[2020-02-10] MEDS ORDERED: NS 500 ML IV SCH (08:15)
[2020-02-10] MEDS ORDERED: NS 1,000 ML IV SCH (11:29)
[2020-02-10] MEDS: GASTROGRAFIN SOLUTION 30ML PO SCH ×2 (12:05→12:30)
[2020-02-10] MEDS ORDERED: ISOVUE-370 76% 100ML VIAL As Ordered ONE (13:37)
--- NOTE | 2020-02-10 17:02 | REP ---
BILATERAL LOWER EXTREMITY DUPLEX DOPPLER ARTERIAL ULTRASOUND: Real-time ultrasound evaluation and duplex Doppler interrogation of bilateral lower extremity arterial systems is performed. GERMAIN could not be performed due to bilateral occlusion of the posterior tibial arteries. Biphasic and triphasic waveforms are seen bilaterally to at least the popliteal arteries. There are monophasic waveforms throughout the right anterior tibial artery with increased diastolic flow. There is occlusion of the proximal and distal right posterior and tibial artery. Significant plaquing is seen in the proximal left superficial femoral artery. There appears to be approximately 2:1 stenosis of the distal left SFA with somewhat elevated peak systolic velocity at that location. There is occlusion of the distal left posterior artery. Arterial vessels are heavily calcified diffusely bilaterally. Right Peak Left Peak Systolic Velocity Systolic velocity Common femoral artery 86.8 cm/s 89.8 cm/s Profunda 73.0 cm/s 48.8 cm/s Proximal SFA 66.6 cm/s 88.9 cm/s Mid SFA 76.5 cm/s 68.5 cm/s Distal SFA 91.6 cm/s 128.7 cm/s Popliteal 83.6 cm/s 80.3 cm/s Proximal SARAH 90.6 cm/s 69.8 cm/s Tibial peroneal trunk 60.1 cm/s 127.9 cm/s Proximal HAT FORMER occluded 60.5 cm/s Distal HAT FORMER occluded occluded Distal SARAH 154.5 cm/s 47.7 cm/s Electronically Signed by Nate Alba MD 02/11/2020 04:56 P
--- NOTE | 2020-02-10 18:59 | IPN ---
DATE: 02/10/2020 Patient seen and examined. Denies overnight complaints. Vital signs are reviewed. He has remained afebrile. Labs reviewed. White blood cell count is elevated at 23.3. Culture results are pending. They show Gram-negative rods. EXTREMITY EXAMINATION: Erythema slightly improved. The foot still remains edematous. The wound itself shows no further necrosis. The 3rd toe is slightly improved in color, but still has some delayed capillary refill. ASSESSMENT: A 74-year-old male with gangrene right 2nd toe, status post amputation. PLAN: Continue wet to dry dressings twice daily. Continue empiric antibiotics. Await culture results. Will closely monitor 3rd toe to make sure that this continues to improve. If all goes well, may plan wound closure during this admission.
--- NOTE | 2020-02-11 01:06 | REP ---
REASON FOR EXAM: Lower abdominal pain. The only prior for comparison is 12/03/2007. CONTRAST: 100 mL Isovue-370. Fibrotic changes are seen in the lung bases. The gallbladder is enlarged, and there is biliary dilatation in the lateral segment of the left lobe of the liver. There is thickening of the duodenal steele, particularly the descending duodenum, with evidence of mucosal edema and fatty infiltration in the mesentery surrounding that portion of the duodenum. There is a small amount of fluid in the anterior pararenal space on the left. There is mild bilateral renal stranding, increased somewhat from the prior exam. There is a left renal cyst, which has not changed significantly compared to the prior exam. There is a small right renal cyst, which has developed since the last exam. The adrenal glands are within normal limits and unchanged. There are no enhancing pancreatic lesions. There are multiple unchanged nonenlarged para-aortic lymph nodes. The abdominal aorta is again seen to be within normal limits. There is rather extensive descending colon and sigmoid colon diverticulosis seen in conjunction with fatty infiltration surrounding a short segment of proximal sigmoid colon. There is bilateral lateroconal fascial thickening. There is no free air in the abdomen or pelvis. Bone window technique throughout the examination shows age-appropriate spinal degenerative changes. IMPRESSION: 1. There is thickening of the steele of the duodenum and periduodenal fatty infiltration. This duodenitis is either primary or can, in fact, be caused by pancreatitis of the head of the pancreas. The small amount of fluid in the left anterior pararenal space also indicates the possibility of pancreatitis as the cause, but this all needs to be correlated clinically. 2. There is enlargement of the gallbladder and intrahepatic ductal dilatation, as described above, representing a change from the prior exam, the etiology of which is uncertain. 3. Chronic renal changes, as described above. 4. Chronic nonenlarged para-aortic lymph nodes. 5. Sigmoid colon diverticular changes, suggesting early sigmoid colon diverticulitis. 6. Other findings as described above. Electronically Signed by Lucio Sevilla DO 02/11/2020 08:38 A
[2020-02-11 02:00] VITALS: BP 115/53
[2020-02-11 05:59] LABS: HEMATOCRIT 29.8 % (42.0-52.0); HEMOGLOBIN 9.9 g/dl (13.5-17.5); MEAN CORPUSCULAR HEMOGLOBIN 31.3 pg (27.0-33.0); MEAN CORPUSCULAR HGB CONC 33.2 g/dl (32.0-36.5); MEAN CORPUSCULAR VOLUME 94.3 fl (80.0-96.0); PLATELET COUNT, AUTOMATED 272 10^3/uL (150-450); RED BLOOD COUNT 3.16 10^6/uL (4.30-6.10); WHITE BLOOD COUNT 14.2 10^3/uL (4.0-10.0)
[2020-02-11 06:00] VITALS: BP 122/67
[2020-02-11] MEDS ORDERED: HumaLOG INSULIN (NovoLOG) PER UNIT SC SCH (06:00)
[2020-02-11 06:28] LABS: BLOOD UREA NITROGEN 25 MG/DL (7-18); CALCIUM LEVEL 8.3 MG/DL (8.8-10.2); CARBON DIOXIDE LEVEL 24 MEQ/L (21-32); CHLORIDE LEVEL 107 MEQ/L (98-107); CREATININE FOR GFR 1.09 MG/DL (0.70-1.30); GLOMERULAR FILTRATION RATE > 60.0 (>42); GLUCOSE, FASTING 116 MG/DL (70-100); POTASSIUM SERUM 4.4 MEQ/L (3.5-5.1); SODIUM LEVEL 138 MEQ/L (136-145)
[2020-02-11 07:27] LABS: LIPASE 103 U/L (73-393)
--- NOTE | 2020-02-11 07:55 | IPNPDOC ---
Subjective Date Seen The patient was seen on 02/11/20. Subjective Chief Complaint/HPI Patient is examined at bedside. He reported constant 3/10 b/l Lower quadrant abdominal pain without nausea, vomiting, aggravating or alleviating factor. Pt denies any chest pain or epigastric pain, denies nausea or vomiting. Reported discomfort but not pain in his right second toe; denies fever or chills. Reported only one diarrhea from the day before yesterday, denies blood in stool General: Denies: Chills Constitutional: Denies: Chills, Fever Pulmonary: Denies: Dyspnea Cardiovascular: Denies: Chest Pain, Palpitations Gastrointestinal: Reports: Abdominal Pain; Denies: Nausea, Vomiting, Constipation, Hematochezia Objective Physical Examination General Exam: Positive: Alert, Cooperative, No Acute Distress Eye Exam: Positive: Conjunctiva & lids normal; Negative: Sclera icteric ENT Exam: Positive: Atraumatic, Mucous membr. moist/pink Neck Exam: Positive: Supple Chest Exam: Positive: Normal air movement, Diminished Heart Exam: Positive: Rate Normal, Regular Rhythm, Normal S1, Normal S2 Abdomen Exam: Positive: Normal bowel sounds, Soft, Tenderness (mild in RUQ, RLQ, and LLQ), Other (no guarding or distention) Extremity Exam: Positive: Other (right foot wrapped with kerlix with serousanguinous discharge on kerlix) Skin Exam: Positive: Nl turgor and temperature Neuro Exam: Positive: Normal Speech, Normal Tone Psych Exam: Positive: Mental status NL, Mood NL, Memory Intact, Oriented x 3 Assessment /Plan Assessment 1. 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 Podiatry following. With dry gangrene and eschar of second right toe,CT foot from [place] showed osteomyelitis of right 2nd distal phalanx. S/p right 2nd toe amputation. Leukocytosis improving. Blood cx negX2, wound cx pending showed gram neg rods. Pathology showed Gangrene with ulceration and acute inflammation with abscess; acute osteomyelitis. S/p Cefepime 02/08-02/09. Switch to IV metronidazole and levofloxacin for diverticulitis coverage as well. PT/OT recommended home with service. Pt reported he has been ambulating well on his own. D/c home med linezolid. 2. CAM, resolved. Creat 1.93 upon admission higher than baseline around 1.2. Pt was started on IVNS prior to procedure. IVNS was d/c for a brief period after procedure. Resume IVF as pt's CT abd showed possible pancreatitis but pt does not fit pancreatitis criteria. Resume home med Ramipril. Cont to hold home med lasix. Cont to monitor creatinine and GFR 3. Diabetes mellitus. Will put patient on clear liquid diet. Glucose checks and sliding scale insulin coverage ACHS. 3. Hypertension. Continue hydralazine and atenolol. Resume home med ramipril. Cont to hold home med lasix. 4. Peripheral vascular disease. Continue Plavix. Duplex b/l LE arterial US done; GERMAIN would not be performed due to bilateral occlusion of the posterior tibial arteries. Podiatry noted third toe still has some dysvascular changes. IR consulted by podiatry. Stop home med atorvastatin 10mg and start atorvastatin 40mg. 5. Diverticulitis, new onset. Started since 02/09/2020. Bilateral lower abd pain, CT abd/pelvis showed sigmoid colon diverticular changes suggesting early sigmoid colon diverticulitis. Constant achy pain with one loose BM the day before yesterday. Hx of diverticulitis. AST, ALT, alkphos, and bili wnl. CT abd/pelvis with contrast showed diverticulitis. Pt creat elevated but<1.[address] with contrast. Start levofloxacin and metronidazole for diverticulitis. Today reported 3/10 b/l lower quad pain without guarding or distention 6. Duodenitis, likely viral etiology. CT showed thickening of the duodenal wall and periduodenal fatty infiltration. Per team discussion, we will continue current treatment and monitor pt closely 7. Questionable cholecystitis, CT abd/pelvis showed enlargement of the gallbladder and intrahepatic ductal dilatation, changed from prior. Mild RUQ tenderness but no AST, ALT, or alk phos elevation. No guarding or distention. Per team discussion, we will continue current treatment and monitor pt closely DVT prophylaxis: Heparin subcutaneous. GI prophylaxis: Omeprazole DISPO: right 2nd toe osteomyelitis s/p amputation, switch abx to levofloxacin and metronidazole for diverticulitis with questionable cholecystitis and duodenitis. LE arterial US showed occlusion of DTA, podiatry consulted IR pending recommendation. Increase statin dose for PAD Plan/VTE VTE Prophylaxis Ordered?: Yes Plan IVF: Initiate Diet: Advance Activity: Advance Therapy: PT, OT Respiratory: Wean Oxygen Diagnostics: Repeat Labs in AM VS, I&O, 24H, Fishbone Vital Signs/I&O Vital Signs Date Time Temp Pulse Resp B/P (MAP) Pulse Ox O2 Delivery O2 Flow Rate FiO2 02/11/20 06:00 97.8 68 18 122/67 (85) 95 Room Air 02/10/20 14:00 I&O- Last 24 Hours up to 6 AM 02/11/20 06:00 Intake Total 1890 ml Output Total 1175 ml Balance 715 ml Laboratory Data 24H LABS Laboratory Tests 2 02/10/20 11:55: Bedside Glucose (Misc Panel) 165H 02/10/20 17:11: Bedside Glucose (Misc Panel) 150H 02/10/20 20:13: Bedside Glucose (Misc Panel) 132H 02/11/20 05:19: Nucleated Red Blood Cells % (auto) 0.0, Anion Gap 7L, Glomerular Filtration Rate > 60.0, Calcium Level 8.3L, Lipase 103 CBC/BMP Laboratory Tests 02/11/20 05:19 Microbiology Microbiology 02/09/20 Respiratory Virus Panel (PCR) ([facility]) - Final, Complete 02/09/20 Blood Culture - Preliminary, Resulted No Growth after 48 hours. All Specime... 02/09/20 Blood Culture - Preliminary, Resulted No Growth after 48 hours. All Specime... 02/09/20 Gram Stain - Final, Resulted 02/09/20 Wound Culture, Resulted Pending 02/09/20 Anaerobic Culture, Resulted Pending GME ATTESTATION I have personally evaluated and examined the patient. Discussed with resident/student regarding plan of care and agree with the above assessment and plan. ALANIS SAMANO DO Feb 11, 2020 07:55 MOON JIMÉNEZ MD Feb 20, 2020 08:31
[2020-02-11 08:29] LABS: LDH LACTATE DEHYDROGENASE 199 U/L (87-241); TRIGLYCERIDES LEVEL 200 MG/DL (<150)
[2020-02-11] MEDS: LevoFLOXacin IV 750 MG in IV 1 EA IV SCH (08:39)
[2020-02-11] MEDS: ASCORBIC ACID 500 MG TAB PO SCH (08:41)
[2020-02-11] MEDS: HEPARIN SOD (PORCINE) 5000UNITS/ML 1ML VIAL/SYRINGE SQ SCH ×2 (08:41→20:12)
[2020-02-11] MEDS: CLOPIDOGREL 75 MG TAB PO SCH (08:41)
[2020-02-11] MEDS: FERROUS SULFATE 325MG TAB PO SCH (08:41)
[2020-02-11] MEDS: GABAPENTIN 300 MG CAP PO SCH ×3 (08:41→20:12)
[2020-02-11] MEDS: NS 1,000 ML IV SCH ×3 (08:41→20:12)
[2020-02-11] MEDS: **hydrALAZINE HCL** 25 MG TAB PO SCH ×2 (08:42→20:14)
[2020-02-11] MEDS: atenoloL 25 MG TAB PO SCH (08:42)
[2020-02-11] MEDS: FINASTERIDE 5 MG TAB PO SCH (08:42)
[2020-02-11] MEDS: PANTOPRAZOLE 40MG VIAL (C9113 PER 1) IV SCH (08:45)
--- NOTE | 2020-02-11 09:11 | IPNPDOC ---
Subjective Date Seen The patient was seen on 02/11/20. Subjective Chief Complaint/HPI Patient is examined at bedside. He reported constant 3/10 b/l Lower quadrant abdominal pain without nausea, vomiting, Objective Physical Examination General Exam: Positive: Alert, Cooperative, No Acute Distress Eye Exam: Positive: Conjunctiva & lids normal; Negative: Sclera icteric ENT Exam: Positive: Atraumatic, Mucous membr. moist/pink Neck Exam: Positive: Supple Chest Exam: Positive: Normal air movement, Diminished; Negative: Rales, Rhonchi, Wheezing Heart Exam: Positive: Rate Normal, Regular Rhythm, Normal S1, Normal S2; Negative: Murmurs Abdomen Exam: Positive: Normal bowel sounds, Soft; Negative: Tenderness Male Exam: Positive: Tenderness (b/l lower abd quadrants) Extremity Exam: Positive: Other (Right foot second digit with eschar and dry gangrene) Skin Exam: Positive: Nl turgor and temperature; Negative: Rash Neuro Exam: Positive: Normal Speech, Normal Tone Psych Exam: Positive: Mental status NL, Anxiety (mild), Memory Intact, Oriented x 3 Assessment /Plan Plan/VTE VTE Prophylaxis Ordered?: Yes Plan IVF: Initiate Diet: Advance Activity: Advance Therapy: PT, OT Respiratory: Wean Oxygen Diagnostics: Repeat Labs in AM Anticipated Discharge: Home With Services VS, I&O, 24H, [facility] Vital Signs/I&O Vital Signs Date Time Temp Pulse Resp B/P (MAP) Pulse Ox O2 Delivery O2 Flow Rate FiO2 02/11/20 06:00 97.8 68 18 122/67 (85) 95 Room Air 02/10/20 14:00 I&O- Last 24 Hours up to 6 AM 02/11/20 06:00 Intake Total 1890 ml Output Total 1175 ml Balance 715 ml Laboratory Data 24H LABS Laboratory Tests 2 02/10/20 11:55: Bedside Glucose (Misc Panel) 165H 02/10/20 17:11: Bedside Glucose (Misc Panel) 150H 02/10/20 20:13: Bedside Glucose (Misc Panel) 132H 02/11/20 05:19: Nucleated Red Blood Cells % (auto) 0.0, Anion Gap 7L, Glomerular Filtration Rate > 60.0, Calcium Level 8.3L, Lactate Dehydrogenase 199, Triglycerides Level 200H, Lipase 103 CBC/BMP Laboratory Tests 02/11/20 05:19 Microbiology Microbiology 02/09/20 Respiratory Virus Panel (PCR) ([facility]) - Final, Complete 02/09/20 Blood Culture - Preliminary, Resulted No Growth after 48 hours. All Specime... 02/09/20 Blood Culture - Preliminary, Resulted No Growth after 48 hours. All Specime... 02/09/20 Gram Stain - Final, Resulted 02/09/20 Wound Culture, Resulted Pending 02/09/20 Anaerobic Culture, Resulted Pending ALANIS SAMANO DO Feb 11, 2020 09:11
[2020-02-11 10:00] VITALS: BP 147/58
[2020-02-11] MEDS: metroNIDAZOLE 500 MG in IV 1 EA IV SCH ×3 (11:27→20:11)
[2020-02-11] MEDS: LACTOBACILLUS ACIDOPHILUS CAP (BACID) PO SCH (11:52)
[2020-02-11] MEDS: HumaLOG INSULIN (NovoLOG) PER UNIT SC SCH ×3 (11:53→20:12)
--- NOTE | 2020-02-11 13:49 | RO ---
DATE OF SURGERY: 02/09/2020 PREOPERATIVE DIAGNOSIS: Right 2nd toe gangrene. POSTOPERATIVE DIAGNOSIS: Right 2nd toe gangrene PROCEDURE: Right 2nd toe amputation. SURGEON: Osiel Mariano DPM MACHINE COMPOSITOR: None ANESTHESIA: Monitored anesthesia care with preoperative injection of 10 mL of 1:1 mixture of 1% lidocaine plain and 0.5% Marcaine plain. ESTIMATED BLOOD LOSS: Minimal. MATERIALS: None. COMPLICATIONS: None. SPECIMEN: Right 2nd toe. Colby Ramirez is a 74-year-old male who was admitted to [facility], [place] with gangrene to his right toe. Decision was made to bring him to the operating room for removal of said toe. The patient's side and site were identified and marked in the preoperative holding area. Consent was reviewed and obtained. All risks, complications, and alternatives to the procedure were explained to the patient in detail. All questions were answered. It was noted preoperatively that the 3rd toe had some vascular changes and was talked before surgery that this may ultimately require amputation, as well, if the toe does not recover; but it has some viability, so decision made to bring him for 2nd toe amputation alone and monitor the 3rd toe. DESCRIPTION OF PROCEDURE: The patient was brought to the operating room on bed in supine position. Monitored anesthesia care was delivered by the anesthesia team. A preoperative injection of 10 mL of 1:1 mixture of 1% lidocaine plain and 0.5% Marcaine plain were injected to the right foot. The right foot was prepped and draped in normal sterile fashion. No tourniquet was used during the procedure. The 2nd toe was noted to be fully gangrenous with black eschar. This was disarticulated using #15 blade at the metatarsophalangeal joint. Rongeur was used to remove some nonviable tissue and tendon. The site was irrigated with normal saline. It should be noted that culture swabs were taken of the wound. Following this, the wound was packed with saline gauze. The patient was brought to postanesthesia care unit (PACU) with vital signs stable and neurovascular status intact. He will be readmitted to the floor for continuing on the antibiotics and monitoring.
[2020-02-11 14:00] VITALS: BP 140/80
--- NOTE | 2020-02-11 16:10 | IPN ---
DATE: 02/11/2020 Patient seen at bedside. Denies new complaints. Vital signs are reviewed. He has been afebrile. LABORATORY DATA: Reviewed. White cell count has trended down to 14.2. LOWER EXTREMITY EXAMINATION: There still remains moderate erythema and edema to the right foot. The third toe still has some dysvascular changes. No other significant findings or necrosis is noted. Arterial study is reviewed. He has monophasic to the right anteriori tibial artery. There is occlusion of the right proximal and distal posterior tibial arteries. There is also occlusion on the left posterior pedal artery. ASSESSMENT: Patient with diabetes and gangrene, status post second toe amputation. PLAN: We will consult interventional radiology (IR) for evaluation, Dr. Castellano, for possible angiography if indicated. He has persisting cyanosis to his third toe and his foot as a whole and has been slow to improve from this infection. Await operative cultures. Continue current wound dressings.
[2020-02-11] MEDS: ATORVASTATIN 20 MG TAB PO SCH (17:17)
[2020-02-11] MEDS: ramipriL 1.25 MG CAP PO SCH (20:14)
[2020-02-11 22:00] VITALS: BP 155/72
[2020-02-12] MEDS: metroNIDAZOLE 500 MG in IV 1 EA IV SCH ×4 (02:18→21:19)
[2020-02-12] MEDS: NS 1,000 ML IV SCH ×2 (05:24→15:13)
[2020-02-12 05:46] LABS: HEMOGLOBIN 8.5 g/dl (13.5-17.5); MEAN CORPUSCULAR HEMOGLOBIN 31.3 pg (27.0-33.0); MEAN CORPUSCULAR HGB CONC 32.7 g/dl (32.0-36.5); MEAN CORPUSCULAR VOLUME 95.6 fl (80.0-96.0); PLATELET COUNT, AUTOMATED 222 10^3/uL (150-450); RED BLOOD COUNT 2.72 10^6/uL (4.30-6.10); WHITE BLOOD COUNT 8.4 10^3/uL (4.0-10.0)
[2020-02-12 06:00] VITALS: BP 139/69
[2020-02-12 06:00] LABS: ALBUMIN 2.2 GM/DL (3.2-5.2); ALT/SGPT 20 U/L (12-78); BILIRUBIN,DIRECT 0.1 MG/DL (0.0-0.2); BILIRUBIN,TOTAL 0.4 MG/DL (0.2-1.0); BLOOD UREA NITROGEN 17 MG/DL (7-18); CALCIUM LEVEL 7.8 MG/DL (8.8-10.2); CARBON DIOXIDE LEVEL 26 MEQ/L (21-32); CHLORIDE LEVEL 108 MEQ/L (98-107); CREATININE FOR GFR 0.99 MG/DL (0.70-1.30); GLOMERULAR FILTRATION RATE > 60.0 (>42); GLUCOSE, FASTING 123 MG/DL (70-100); POTASSIUM SERUM 4.4 MEQ/L (3.5-5.1); SODIUM LEVEL 138 MEQ/L (136-145)
[2020-02-12] MEDS: PANTOPRAZOLE 40MG VIAL (C9113 PER 1) IV SCH (08:35)
[2020-02-12] MEDS: ramipriL 1.25 MG CAP PO SCH (08:36)
[2020-02-12] MEDS: ATORVASTATIN 20 MG TAB PO SCH (08:36)
[2020-02-12] MEDS: LevoFLOXacin IV 750 MG in IV 1 EA IV SCH (08:36)
[2020-02-12] MEDS: HumaLOG INSULIN (NovoLOG) PER UNIT SC SCH ×4 (08:36→21:00)
[2020-02-12] MEDS: FINASTERIDE 5 MG TAB PO SCH (08:36)
[2020-02-12] MEDS: CLOPIDOGREL 75 MG TAB PO SCH (08:37)
[2020-02-12] MEDS: FERROUS SULFATE 325MG TAB PO SCH (08:37)
[2020-02-12] MEDS: GABAPENTIN 300 MG CAP PO SCH ×3 (08:37→21:20)
[2020-02-12] MEDS: **hydrALAZINE HCL** 25 MG TAB PO SCH ×2 (08:37→21:21)
[2020-02-12] MEDS: atenoloL 25 MG TAB PO SCH (08:37)
[2020-02-12] MEDS: ASCORBIC ACID 500 MG TAB PO SCH (08:37)
[2020-02-12] MEDS: HEPARIN SOD (PORCINE) 5000UNITS/ML 1ML VIAL/SYRINGE SQ SCH ×2 (08:38→21:20)
[2020-02-12] MEDS: LACTOBACILLUS ACIDOPHILUS CAP (BACID) PO SCH (12:45)
--- NOTE | 2020-02-12 13:19 | IPNPDOC ---
Subjective Date Seen The patient was seen on 02/12/20. Subjective Chief Complaint/HPI Patient is examined at bedside. He reported improvement of b/l lower abdominal pain 2/10; denies epigastric pain. Denies any fever, chills, nausea, vomiting. Reported night sweat overnight but currently asymptomatic. Reported mild discomfort in right foot but no pain. Pt denies any chest pain, palpitation, or dyspnea. Reported no sensation in left big toe. Reported 1 semi-formed BM yesterday and another one this morning; pt is unsure the stool color or if there's blood in stool General: Denies: Chills Constitutional: Denies: Chills, Fever Pulmonary: Denies: Dyspnea Cardiovascular: Denies: Chest Pain, Palpitations Gastrointestinal: Reports: Abdominal Pain; Denies: Nausea, Vomiting, Constipation Musculoskeletal: Reports: Other Symptoms (mild right foot discomfort) Objective Physical Examination General Exam: Positive: Alert, Cooperative, No Acute Distress Eye Exam: Positive: Conjunctiva & lids normal; Negative: Sclera icteric ENT Exam: Positive: Atraumatic, Mucous membr. moist/pink Neck Exam: Positive: Supple Chest Exam: Positive: Clear to auscultation, Normal air movement; Negative: Rales, Rhonchi, Wheezing Heart Exam: Positive: Rate Normal, Regular Rhythm, Normal S1, Normal S2; Negative: Murmurs Abdomen Exam: Positive: Normal bowel sounds, Soft, Tenderness (mild in b/l lower quadrants ), Other (no guarding or distention. No acrter's sign) Extremity Exam: Positive: Other (right foot wrapped with kerlix, mild to mod amount serosanguinus drainage noted on kerlix noted, right third toe exposed region cyanotic with sensation intact per pt. No sensation in right big toe per patient) Skin Exam: Positive: Nl turgor and temperature; Negative: Rash Neuro Exam: Positive: Normal Speech, Normal Tone Psych Exam: Positive: Mental status NL, Mood NL, Memory Intact, Oriented x 3 Assessment /Plan Assessment Pt is a 74 yo male with PMH of peripheral vascular disease transferred to [facility] fo r right 2nd toe osteomyelitis s/p amputation with peripheral vascular disease pending IR recommendation. CAM resolved. Pt reported b/l lower quadrant abdominal pain with CT evidence of diverticulitis started on abx; CT also showed possible gallbladder distention, duodenitis, and pancreatitis without lipase elevation or epigastric pain 1. 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 Podiatry following. With dry gangrene and eschar of second right toe, CT foot from [place] showed osteomyelitis of right 2nd distal phalanx. S/p right 2nd toe amputation. Leukocytosis improving. Blood cx negX2, wound cx pending showed gram neg rods. Pathology showed gangrene with ulceration and acute inflammation with abscess; acute osteomyelitis. S/p Cefepime 02/08-02/09. D/c home med linezolid. On 02/11/2020 switch to IV metronidazole and levofloxacin for diverticulitis coverage as well. PT/OT recommended home with service. Pt reported he has been ambulating well on his own. Dr. Mariano recommended 2 weeks of outpatient abx 2. CAM, resolved. Creat 1.93 upon admission higher than baseline around 1.2. Pt was started on IVNS prior to procedure. IVNS was d/c for a brief period after procedure. Resume IVF as pt's CT abd showed possible pancreatitis but pt does not fit pancreatitis criteria. Resume home med Ramipril. Cont to hold home med lasix. Cont to monitor creatinine and GFR 3. Diabetes mellitus. Glucose checks and sliding scale insulin coverage ACHS. Cont clear liquid diet for now; likely advance to full liquid diet if clinical improvement of diverticulitis. 3. Hypertension. Continue hydralazine and atenolol. Resume home med ramipril 02/11/2020 after CAM resolved. Cont to hold home med lasix. 4. Peripheral vascular disease. Continue Plavix. Duplex b/l LE arterial US done; GERMAIN would not be performed due to bilateral occlusion of the posterior tibial arteries. Podiatry noted third toe still has some dysvascular changes. IR consulted by podiatry 02/11/2020. Stop home med atorvastatin 10mg and start atorvastatin 40mg. Discussed with podiatry Dr. Mariano this morning depending on clinical picture possible procedure may be needed. Discussed with Dr. Vance 02/12/2020 afternoon regarding cyanotic right third toe and pt is scheduled with her outpatient 02/17/2020 with plan for possible angiogram outpatient. 5. Diverticulitis, new onset, improving. Symptoms started since 02/09/2020. Bilateral lower abd pain improving, CT abd/pelvis showed sigmoid colon diverticular changes suggesting early sigmoid colon diverticulitis. Hx of diverticulitis. AST, ALT, alkphos, and bili wnl. CT abd/pelvis with contrast showed diverticulitis. Pt creat elevated but<1.[address] with contrast. Start levofloxacin and metronidazole for diverticulitis; may switch go PO levo and flagyl if clinical improvement. 6. Duodenitis, likely viral etiology. CT showed thickening of the duodenal wall and periduodenal fatty infiltration. Per team discussion, we will continue current treatment and monitor pt closely 7. Questionable cholecystitis, CT abd/pelvis showed enlargement of the gallbla dder and intrahepatic ductal dilatation, changed from prior. Mild RUQ tenderness 02/11/2020 but not today; neg Carter's sign; no AST, ALT, or alk phos elevation. No guarding or distention. Per team discussion, we will continue current treatment and monitor pt closely DVT prophylaxis: Heparin subcutaneous. GI prophylaxis: Omeprazole DISPO: right 2nd toe osteomyelitis s/p amputation, switch abx 02/11/2020 to levofloxacin and metronidazole for diverticulitis with questionable cholecystitis and duodenitis; may switch to PO levofloxacin and metronidazole when ready for discharge. LE arterial US showed occlusion of [employer]PER[employer], podiatry consulted IR. IR recommended outpatient follow up next Sunday with possible angiogram afterwards. Reached out to podiatry pending return phone call if further inpt procedure is needed after speaking with IR this afternoon Plan/VTE VTE Prophylaxis Ordered?: Yes Plan IVF: Continue Diet: Continue Current Activity: Continue Current Therapy: PT, OT Diagnostics: Repeat Labs in AM Anticipated Discharge: Home With Services VS, I&O, 24H, [facility] Vital Signs/I&O Vital Signs Date Time Temp Pulse Resp B/P (MAP) Pulse Ox O2 Delivery O2 Flow Rate FiO2 02/12/20 06:00 98.1 70 18 139/69 (92) 97 Room Air 02/10/20 14:00 I&O- Last 24 Hours up to 6 AM 02/12/20 06:00 Intake Total 3900 ml Output Total 1300 ml Balance 2600 ml Laboratory Data 24H LABS Laboratory Tests 2 02/11/20 11:34: Bedside Glucose (Misc Panel) 202H 02/11/20 16:41: Bedside Glucose (Misc Panel) 107 02/11/20 20:11: Bedside Glucose (Misc Panel) 99 02/12/20 05:09: Nucleated Red Blood Cells % (auto) 0.0, Anion Gap 4L, Glomerular Filtration Rate > 60.0, Calcium Level 7.8L, Total Bilirubin 0.4, Direct Bilirubin 0.1, Aspartate Amino Transf (AST/SGOT) 23, Alanine Aminotransferase (ALT/SGPT) 20, Alkaline Phosphatase 79, Total Protein 5.0L, Albumin 2.2L, Albumin/Globulin Ratio 0.8 CBC/BMP Laboratory Tests 02/12/20 05:09 Microbiology Microbiology 02/09/20 Respiratory Virus Panel (PCR) ([facility]) - Final, Complete 02/09/20 Blood Culture - Preliminary, Resulted No Growth after 72 hours. All specime... 02/09/20 Blood Culture - Preliminary, Resulted No Growth after 72 hours. All specime... 02/09/20 Gram Stain - Final, Resulted 02/09/20 Wound Culture, Resulted Pending 02/09/20 Anaerobic Culture, Resulted Pending GME ATTESTATION GME ATTESTATION My faculty preceptor for this patient encounter was physically present during the encounter and was fully available. All aspects of the patient interview, examination, medical decision making process, and medical care plan development were reviewed and approved by the faculty preceptor. The faculty preceptor is aware and concurs with the plan as stated in the body of this note and will attest to such by his/her cosignature. ATTENDING NOTE I have personally evaluated and examined the patient. Discussed with resident/student regarding plan of care and agree with the above assessment and plan. ALANIS SAMANO DO Feb 12, 2020 07:17 MOON JIMÉNEZ MD Feb 13, 2020 08:15
[2020-02-12 14:00] VITALS: BP 131/59
[2020-02-12 14:55] LABS: HEMATOCRIT 24.9 % (42.0-52.0); HEMOGLOBIN 8.1 g/dl (13.5-17.5)
[2020-02-12] MEDS: NORCO, ANEXSIA 5/325MG TABLET (HYDROcodone/ACETAMINOPHEN) PO PRN (15:13)
--- NOTE | 2020-02-12 18:21 | IPN ---
DATE OF ADMISSION: 02/12/2020 Patient seen and examined, denies any complaints. Vital signs are reviewed. He has been afebrile. Labs are reviewed. White blood cell count has improved to 8.4. Culture results are pending. LOWER EXTREMITY EXAMINATION: There is some persisting erythema. His foot edema has improved. The 3rd toe has somewhat better color to it. ASSESSMENT: Gangrene, status post 2nd toe amputation. PLAN: Patient most likely will be okay to be discharged home on oral antibiotics times 2 weeks. Culture results should be hopefully finalized by tomorrow. He has plans for outpatient procedure with Dr. Castellano next week. He can followup with me in the office next week, most likely for wound closure at that time.
[2020-02-12 22:00] VITALS: BP 136/77
[2020-02-13] MEDS: NS 1,000 ML IV SCH (01:51)
[2020-02-13] MEDS: metroNIDAZOLE 500 MG in IV 1 EA IV SCH ×2 (03:37→10:17)
[2020-02-13 06:00] VITALS: BP 130/79
[2020-02-13 06:25] LABS: HEMATOCRIT 25.1 % (42.0-52.0); HEMOGLOBIN 8.1 g/dl (13.5-17.5); MEAN CORPUSCULAR HEMOGLOBIN 30.9 pg (27.0-33.0); MEAN CORPUSCULAR HGB CONC 32.3 g/dl (32.0-36.5); MEAN CORPUSCULAR VOLUME 95.8 fl (80.0-96.0); PLATELET COUNT, AUTOMATED 199 10^3/uL (150-450); RED BLOOD COUNT 2.62 10^6/uL (4.30-6.10); WHITE BLOOD COUNT 7.8 10^3/uL (4.0-10.0)
[2020-02-13 06:39] LABS: BLOOD UREA NITROGEN 12 MG/DL (7-18); CARBON DIOXIDE LEVEL 24 MEQ/L (21-32); CHLORIDE LEVEL 109 MEQ/L (98-107); CREATININE FOR GFR 0.96 MG/DL (0.70-1.30); GLOMERULAR FILTRATION RATE > 60.0 (>42); GLUCOSE, FASTING 142 MG/DL (70-100); POTASSIUM SERUM 4.1 MEQ/L (3.5-5.1); SODIUM LEVEL 141 MEQ/L (136-145)
[2020-02-13 07:36] LABS: ALBUMIN 2.2 GM/DL (3.2-5.2); ALT/SGPT 21 U/L (12-78); BILIRUBIN,DIRECT 0.2 MG/DL (0.0-0.2); BILIRUBIN,TOTAL 0.4 MG/DL (0.2-1.0)
[2020-02-13] MEDS: LevoFLOXacin IV 750 MG in IV 1 EA IV SCH (08:22)
[2020-02-13] MEDS: HumaLOG INSULIN (NovoLOG) PER UNIT SC SCH ×2 (08:22→12:00)
[2020-02-13] MEDS: GABAPENTIN 300 MG CAP PO SCH (08:24)
[2020-02-13] MEDS: PANTOPRAZOLE 40MG VIAL (C9113 PER 1) IV SCH (08:24)
[2020-02-13] MEDS: ATORVASTATIN 20 MG TAB PO SCH (08:24)
[2020-02-13] MEDS: CLOPIDOGREL 75 MG TAB PO SCH (08:24)
[2020-02-13] MEDS: FERROUS SULFATE 325MG TAB PO SCH (08:24)
[2020-02-13] MEDS: FINASTERIDE 5 MG TAB PO SCH (08:24)
[2020-02-13] MEDS: HEPARIN SOD (PORCINE) 5000UNITS/ML 1ML VIAL/SYRINGE SQ SCH (08:24)
[2020-02-13 08:27] LABS: FERRITIN 160 NG/ML (26-388); IRON (FE) 29 UG/DL (65-175); PERCENT SATURATION 19.1 % (19.7-50.0); TOTAL IRON BINDING CAPACITY 152 UG/DL (250-450)
[2020-02-13] MEDS: ASCORBIC ACID 500 MG TAB PO SCH (08:27)
[2020-02-13 08:28] VITALS: BP 166/82
[2020-02-13] MEDS: ramipriL 1.25 MG CAP PO SCH (08:28)
[2020-02-13] MEDS: atenoloL 25 MG TAB PO SCH (08:28)
[2020-02-13] MEDS: **hydrALAZINE HCL** 25 MG TAB PO SCH (08:28)
[2020-02-13] MEDS: NORCO, ANEXSIA 5/325MG TABLET (HYDROcodone/ACETAMINOPHEN) PO PRN (08:29)
[2020-02-13 09:18] LABS: FOLATE 22.3 NG/ML (>5.4); VITAMIN B12 LEVEL 939 PG/ML (247-911)
[2020-02-13] MEDS ORDERED: RISATAB3 PO (11:20)
[2020-02-13] MEDS ORDERED: ATOR1TAB21 PO (11:20)
[2020-02-13] MEDS ORDERED: METR-265 PO (11:30)
[2020-02-13] MEDS ORDERED: LEVO750T13 PO (11:31)
[2020-02-13] MEDS: LACTOBACILLUS ACIDOPHILUS CAP (BACID) PO SCH (12:00)
--- NOTE | 2020-02-13 13:19 | DS.PDOC ---
Discharge Summary General Date of Admission Feb 09, 2020 at 05:22 Date of Discharge 02/13/2020 Discharge Summary PROCEDURES PERFORMED DURING STAY: Right second toe amputation by Dr. Mariano ADMITTING DIAGNOSES: 1. Osteomyelitis 2. Diabetes mellitus 3. Hypertension 4. Peripheral vascular disease 5. Chronic kidney disease DISCHARGE DIAGNOSES: 1.Right 2nd toe osteomyelitis with right foot cellulitis, s/p right 2nd toe amputation, improved 2. CAM, resolved 3. Diabetes mellitus 3. Hypertension 4. Peripheral vascular disease 5. Diverticulitis, new onset, improving 6. Duodenitis, likely viral etiology 7. Questionable cholecystitis but unlikely, CT abd/pelvis showed enlargement of the gallbladder and intrahepatic ductal dilatation, changed from prior. No elevated AST, ALT, alk phos, or Carter's sign 8. Normocytic anemia 2/2 GI blood loss vs surgical blood loss vs anemia of chronic disease DISPO: right 2nd toe osteomyelitis s/p amputation, switch abx 02/11/2020 to levofloxacin and metronidazole for diverticulitis with questionable cholecystitis and duodenitis; may switch to PO levofloxacin and metronidazole when ready for discharge. LE arterial US showed occlusion of [employer], podiatry consulted IR. IR recommended outpatient follow up next Sunday with possible angiogram afterwards. Reached out to podiatry pending return phone call if further inpt procedure is needed after speaking with IR this afternoon COMPLICATIONS/CHIEF COMPLAINT: Cellulitis R Foot. HISTORY OF PRESENT ILLNESS: Patient is a 74 yo male with PMH of DM , CKD, HTN, and recurrent DM foot infections transferred from [facility] due to gangrene and osteomyelitis of right toe. Pt reported infection of second right toe tip 3 week s ago and spreaded to the rest of toe a week ago. He presented to [facility] ER on 02/08/2020 for toe infection that started 2-3 weeks ago s/p outpatient ciprofloxacin and augmentin without any improvement. His toe presentation continued to worsen and the right 2nd toe began to turn dark 5 days prior to admission and progressively worsening with swelling, redness and pain in the foot. Pt was subsequently transferred to [facility] for podiatry evaluation for possible surgical intervention. CT right foot without contrast done in [facility] showed erosive changes of the 2nd distal phalanx at site of an open wound with findings compatible with osteomyelitis. HOSPITAL COURSE: Pt was admitted to the hospital, and received right second toe amputation by Dr. Mariano 02/09/2020. Patient reported b/l lower quadrant abdominal pain without blood in stool with LFT roughly normal. Hx of diverticulitis and CT abd/pelvis showed sigmoid diverticulitis. CT also showed possible gallbladder distention, duodenitis, and pancreatitis without lipase elevation or epigastric pain. Abx was changed to Cefipime and metronidazole to cover diverticulitis as well. It is thought that although CT abd/pelvis showed possible pancreatitis and gallbladder distention, pancreatitis or cholecystitis is unlikely as there's no elevation of lipase, epigastric pain, elevation of AST/ALT/Alk phos, or Carter's sign. Dysvascular changes were noticed on patient's right third toe as well, and a arterial US LE was ordered which showed bilateral occlusion of the posterior tibial arteries. Podiatry recommended vascular surgery consult, but no vascular surgery service is available this week. Dr. Russell from was consulted on 02/11/2020, and patient will follow up with Dr. Russell outpatient next Sundayt 02/17/2020 . Pt's atorvastatin was increased from 10mg QD to 40mg QD. On the day of discharge, pt denies any fever, chills, abdominal pain, nausea, vomiting, decreased appetite, right foot toe pain or discomfort. Discussed with Dr. Mariano and patient is cleared from podiatry standpoint and [facility] with follow up anaerobic wound culture results. Pt was noted to have anemia which decreased from admission but stabilized, he is unsure if there was any blood in stool, but reported chronic melena. An occult blood was ordered and will need to be followed up outpatient as well as hemoglobin level. DISCHARGE MEDICATIONS: Please see below. ALLERGIES: Please see below. PHYSICAL EXAMINATION ON DISCHARGE: VITAL SIGNS: Please see below. General Exam: Alert, cooperative, pleasant. No Acute Distress Eye Exam: Conjunctiva & lids normal. No sclera icterus ENT Exam: Atraumatic, Mucous membr. moist/pink Neck Exam: Supple Chest Exam: Clear to auscultation b/l, Normal air movement. No rales, rhonchi, or wheezing Heart Exam: RRR, no murmur, normal S1, normal S2 Abdomen Exam: Normal bowel sounds, Soft, no tenderness upon palpation in all 4 quadrants, no guarding or distention Extremity Exam: right foot wrapped with kerlix, mild to mod amount serosanguinus drainage noted on kerlix noted, right big toe exposed reported sensation intact to touch Skin Exam: Turgor and temperature in exposed region Neuro Exam: Normal Speech, Normal Tone Psych Exam: Mental status and mood wnl, Memory Intact LABORATORY DATA: Please see below. IMAGIN. Arterial extremity study: "GERMAIN could not be performed due to bilateral occlusion of the posterior tibial arteries. Occlusion of the proximal and distal right posterior and tibial artery. Significant plaquing is seen in the proximal left superficial femoral artery." PROGNOSIS: Fair ACTIVITY: [As tolerated]. DIET: [Low fat low cholesterol diet] DISCHARGE PLAN AND INSTRUCTIONS: Appt with Dr. Russell 02/17/[address] Mariano next week Follow up with PCP in 1 week and monitor hemoglobin level Follow up with wound anerobic culture and occult blood results outpatient ITEMS TO FOLLOWUP ON ON OUTPATIENT: 1.Peripheral vascular disease 2. Osteomyelitis s/p amputation on antibiotics 3. Anemia with hemoglobin level and occult blood test result 4. Wound anaerobic culture DISCHARGE CONDITION: [Improved]. TIME SPENT ON DISCHARGE: 35 minutes. I have personally evaluated and examined the patient. Discussed with resident/student regarding plan of care and agree with the above assessment and plan. Vital Signs/I&Os Vital Signs Date Time Temp Pulse Resp B/P (MAP) Pulse Ox O2 Delivery O2 Flow Rate FiO2 02/13/20 08:59 18 02/13/20 08:28 166/82 02/13/20 08:28 76 02/13/20 06:00 98.1 97 Room Air 02/10/20 14:00 I&O- Last 24 Hours up to 6 AM 02/13/20 06:00 Intake Total 3850 ml Output Total 2150 ml Balance 1700 ml Laboratory Data Labs 24H Laboratory Tests 2 02/12/20 16:26: Bedside Glucose (Misc Panel) 93 02/12/20 20:24: Bedside Glucose (Misc Panel) 132H 02/13/20 05:13: Nucleated Red Blood Cells % (auto) 0.0, Anion Gap 8, Glomerular Filtration Rate > 60.0, Calcium Level 8.0L, Iron Level 29L, Total Iron Binding Capacity 152L, Transferrin % Saturation 19.1L, Ferritin 160, Total Bilirubin 0.4, Direct Bilirubin 0.2, Aspartate Amino Transf (AST/SGOT) 20, Alanine Aminotransferase (ALT/SGPT) 21, Alkaline Phosphatase 78, Total Protein 5.0L, Albumin 2.2L, Albumin/Globulin Ratio 0.8, Vitamin B12 Level 939H, Folate 22.3 02/13/20 11:42: Bedside Glucose (Misc Panel) 93 CBC/BMP Laboratory Tests 02/12/20 14:31 02/13/20 05:13 FSBS Laboratory Tests Test 02/12/20 16:26 02/12/20 20:24 02/13/20 11:42 Range/Units Bedside Glucose (Misc Panel) 93 132 93 83-110 MG/DL Microbiology Microbiology 02/13/20 Stool Occult Blood (ROSALBA) - Final, Complete 02/09/20 Respiratory Virus Panel (PCR) (ROSALBA) - Final, Complete 02/09/20 Blood Culture - Preliminary, Resulted No Growth after 72 hours. All specime... 02/09/20 Blood Culture - Preliminary, Resulted No Growth after 72 hours. All specime... 02/09/20 Gram Stain - Final, Resulted 02/09/20 Wound Culture - Final, Resulted Proteus Vulgaris Enterococcus Faecalis Escherichia Coli 02/09/20 Anaerobic Culture, Resulted Pending Discharge Medications Scheduled Ascorbic Acid (Vitamin C) 500 Mg Tab, 500 MG PO DAILY, (Reported) Atenolol (Atenolol) 25 Mg Tab, 25 MG PO DAILY, (Reported) Atorvastatin Calcium (Atorvastatin Calcium) 20 Mg Tablet, 40 MG PO DAILY Calcium Carbonate/Vitamin D3 (Calcium 600 + Vit D 400 Softgl) 1 Each Capsule, 1 CAP PO DAILY, (Reported) Cholecalciferol (Vitamin D3) (Vitamin D3) 50 Mcg Tablet, 50 MCG PO BID, (Reported) Cinnamon Bark/Chromium Picolin (Cinnamon Plus Chromium Capsule) 1 Each Capsule, 1 CAP PO BID, (Reported) Clopidogrel Bisulfate (Clopidogrel) 75 Mg Tab, 75 MG PO DAILY, (Reported) Donepezil Hcl (Donepezil HCl Odt) 10 Mg Tab, 10 MG PO BID, (Reported) Exenatide Microspheres (Bydureon Bcise) 2 Mg/0.85 Ml Auto.injct, 2 MG SC Q7D, (Reported) SUNDAY Ferrous Sulfate (Ferrous Sulfate) 325 Mg Tab, 325 MG PO DAILY, (Reported) Finasteride (Finasteride) 5 Mg Tab, 5 MG PO DAILY, (Reported) Furosemide (Furosemide) 20 Mg Tab, 20 MG PO DAILY, (Reported) Gabapentin (Gabapentin) 300 Mg Cap, 300 MG PO TID, (Reported) Hydralazine HCl (Hydralazine HCl) 25 Mg Tablet, 25 MG PO BID, (Reported) Insulin Detemir (Levemir Flextouch) 100 Unit/Ml Inj, 50 UNIT SC BID, (Reported) L. Acidophilus/Pectin, [place] (Acidophilus Caplet) 1 Each Tablet, 1 TAB PO DAILY, (Reported) L.acidoph/L.bulg/B.bif/S.therm (Betina-Bid Caplet) 1 Each Tablet, 1 EA PO DAILY@1200 Levofloxacin (Levofloxacin) 750 Mg Tablet, 750 MG PO DAILY Metronidazole (Metronidazole) 500 Mg Tablet, 500 MG PO Q6H Milk Thistle Seed Extract (Milk Thistle) 200 Mg Capsule, 200 MG PO BID, (Reported) Multivitamin (Multi-Vitamin Daily) 1 Tab Tab, 1 TAB PO DAILY, (Reported) Ramipril (Ramipril) 1.25 Mg Capsule, 2.5 MG PO DAILY, (Reported) Zinc (Zinc) 50 Mg Tablet, 50 MG PO DAILY, (Reported) Scheduled PRN Acetaminophen (Acetaminophen) 325 Mg Tablet, 325 MG PO Q4-6H PRN for PAIN, (Reported) Tramadol HCl (Tramadol HCl) 50 Mg Tab, 50 MG PO Q6H PRN for PAIN, (Reported) Allergies Coded Allergies: No Known Allergies (Unverified , 12/27/17) ALANIS SAMANO DO Feb 13, 2020 13:19 MOON JIMÉNEZ MD Mar 01, 2020 07:58
== END 2020-02-13 15:00 | disposition home health service (06) | DRG 256 ==
LOC: M MSPAV 05:22
PROVIDERS: ADMIT Internal Medicine; ATTEND Student in an Organized Health Care Education/Training Program
PROC: 0Y6R0Z0 Detachment at Right 2nd Toe, Complete, Open Approach (ICD-10-PCS; principal; 2020-02-09 11:34)
DX: E11.52 Type 2 diabetes mellitus with diabetic peripheral angiopathy with gangrene (principal); M86.171 Other acute osteomyelitis, right ankle and foot; N17.9 Acute kidney failure, unspecified; K57.92 Diverticulitis of intestine, part unspecified, without perforation or abscess without bleeding; L03.115 Cellulitis of right lower limb; I12.9 Hypertensive chronic kidney disease with stage 1 through stage 4 chronic kidney disease, or unspecified chronic kidney disease; K29.80 Duodenitis without bleeding; N18.9 Chronic kidney disease, unspecified; Z79.899 Other long term (current) drug therapy; Z79.4 Long term (current) use of insulin; Z87.891 Personal history of nicotine dependence

== ENCOUNTER → 2020-02-17 | Outpatient (POV) | payer MEDICARE, OTHER ==
[~2020-02-17] MED LIST changes: +ACET1TAB55 PO; +ACIDTAB3 PO; +ATOR1TAB21 PO; +BYDU2INJ7 SC; +CALCCAP4 PO; +CINN1CAP6 PO; -GABA-282 PO; +GABA-843 PO; +HYDR-3910 PO; +LEVO750T13 PO; +METR-265 PO; +RA M200C4 PO; +RAMI1CAP21 PO; +RISATAB3 PO; +VITA200010 PO; +ZINC1TAB2 PO
--- NOTE | 2020-02-19 13:49 | IRCOV ---
[facility] IR Consult Office Visit IR Consult Office Visit DATE: Feb 17, 2020 Patient agreed to this telephone consultation. Duration of call was 15 minutes. REASON FOR CONSULTATION/CHIEF COMPLAINT: Right leg pain. Toe amputation. HISTORY OF PRESENT ILLNESS: 74-year-old male, nonsmoker with diabetes, hypertension and hyperlipidemia presented to the hospital couple of weeks ago with gangrenous second toe on the right lower extremity. This was amputated. He states there is discoloration of the third toe for some months. No new spots of gangrene. No ulcers. He describes rest pain in the right leg which keeps him awake at night and he has to move around to get relief. Denies chest pain, shortness of breath, paroxysmal nocturnal dyspnea or orthopnea. He states his legs both swell and don't really go down in the morning. He's had prior angio gram and intervention in the left lower extremity but no prior work on the right lower extremity. ALLERGIES: Please see below. HOME MEDICATIONS: Please see below. PAST MEDICAL HISTORY: Diabetes Chronic kidney disease Hypertension Diabetic foot infections PAST SURGICAL HISTORY: Tonsillectomy FAMILY HISTORY: Noncontributory SOCIAL HISTORY: Nonsmoker. Denies alcohol or drugs. REVIEW OF SYSTEMS: Otherwise negative PHYSICAL EXAMINATION: No video and patient side LABORATORY DATA: 02/13/2020 hemoglobin 8.1 hematocrit 25.1 WBC 7.8 platelets 199 sodium 141 potassium 4.1 BUN 12 creatinine 0.96 GFR greater than 60 hemoglobin A1c 7.6 and 03/05/2018 Imaging: I personally reviewed the ultrasound bilateral lower extremities from 02/10/2020. There is right below-knee arterial disease with monophasic AT waveforms and occluded posterior tibial artery. I reviewed the left lower extremity angiogram from 01/04/[address] Bazzi where he had a diagnostic angiogram which showed multifocal below-knee a rterial disease and occluded posterior tibial artery. I reviewed the images from 01/15/2018 where he underwent left below-knee atherectomy, anterior tibial and peroneal angioplasty by Dr. Bazzi. ASSESSMENT/PLAN: 74-year-old male with diabetes and hypertension presents with right lower extremity critical limb ischemia and 1 digit amputation. I agree patient needs an angiogram and/or intervention as appropriate. We discussed the risks and benefits of this procedure. Patient would like to proceed. We will s chedule the patient for this procedure. I spent 15 minutes in consultation with the patient. Thank you for this referral. Cc Dr. Mariano Allergies Coded Allergies: No Known Allergies (Unverified , 12/27/17) Home Medications Scheduled Ascorbic Acid (Vitamin C), 500 MG PO DAILY, (Reported) Atenolol (Atenolol), 25 MG PO DAILY, (Reported) Atorvastatin Calcium (Atorvastatin Calcium), 40 MG PO DAILY Calcium Carbonate/Vitamin D3 (Calcium 600 + Vit D 400 Softgl), 1 CAP PO DAILY, (Reported) Cholecalciferol (Vitamin D3) (Vitamin D3), 50 MCG PO BID, (Reported) Cinnamon Bark/Chromium Picolin (Cinnamon Plus Chromium Capsule), 1 CAP PO BID, (Reported) Clopidogrel Bisulfate (Clopidogrel), 75 MG PO DAILY, (Reported) Donepezil Hcl (Donepezil HCl Odt), 10 MG PO BID, (Reported) Exenatide Microspheres (Bydureon Bcise), 2 MG SC Q7D, (Reported) Ferrous Sulfate (Ferrous Sulfate), 325 MG PO DAILY, (Reported) Finasteride (Finasteride), 5 MG PO DAILY, (Reported) Furosemide (Furosemide), 20 MG PO DAILY, (Reported) Gabapentin (Gabapentin), 300 MG PO TID, (Reported) Hydralazine HCl (Hydralazine HCl), 25 MG PO BID, (Reported) Insulin Detemir (Levemir Flextouch), 50 UNIT SC BID, (Reported) L. Acidophilus/Pectin, [place] (Acidophilus Caplet), 1 TAB PO DAILY, (Reported) L.acidoph/L.bulg/B.bif/S.therm (Betina-Bid Caplet), 1 EA PO DAILY@1200 Levofloxacin (Levofloxacin), 750 MG PO DAILY Metronidazole (Metronidazole), 500 MG PO Q6H Milk Thistle Seed Extract (Milk Thistle), 200 MG PO BID, (Reported) Multivitamin (Multi-Vitamin Daily), 1 TAB PO DAILY, (Reported) Ramipril (Ramipril), 2.5 MG PO DAILY, (Reported) Zinc (Zinc), 50 MG PO DAILY, (Reported) Scheduled PRN Acetaminophen (Acetaminophen), 325 MG PO Q4-6H PRN for PAIN, (Reported) Tramadol HCl (Tramadol HCl), 50 MG PO Q6H PRN for PAIN, (Reported) Discontinued Medications Atorvastatin Calcium (Atorvastatin Calcium), 10 MG PO DAILY, (Reported) ZENAIDA BABCOCK MD Feb 19, 2020 13:49
== END ==
LOC: M TMIRPOV 10:50
PROVIDERS: ATTEND Radiology Diagnostic Radiology
DX: I70.201 Unspecified atherosclerosis of native arteries of extremities, right leg (principal); M79.604 Pain in right leg; Z89.421 Acquired absence of other right toe(s); I12.9 Hypertensive chronic kidney disease with stage 1 through stage 4 chronic kidney disease, or unspecified chronic kidney disease; E11.621 Type 2 diabetes mellitus with foot ulcer; E78.5 Hyperlipidemia, unspecified; N18.9 Chronic kidney disease, unspecified; Z79.899 Other long term (current) drug therapy

== ENCOUNTER → 2020-02-27 | Outpatient (CLI) | payer MEDICARE, OTHER ==
[~2020-02-27] MED LIST changes: +ISOVUE-300 61% 50ML VIAL As Ordered ONE; +LIDOCAINE 1% MDV 20ML VIAL As Ordered ONE; +MIDAZOLAM INJ 2MG/2ML VIAL (J2250 PER 1MG) As Ordered ONE; +PROMETHAZINE INJ 25 MG/ML VIAL (J2550) As Ordered ONE; +diphenhydrAMINE 50MG/ML VIAL (J1200) As Ordered ONE; +fentaNYL 100 MCG/2 ML INJECTION (J3010) As Ordered ONE
--- NOTE | 2020-02-27 07:40 | IRHP ---
[facility] IR Pre-Procedure H & P General Date of Service: Feb 27, 2020 Procedure: Same Day Surgery Interval History and Physical I have seen the patient and reviewed last H & P performed within 30 days. There is no significant interval change. History of Present Illness Chief Complaint The patient is a 74-year-old male admitted with a reason for visit of PAD. PRE-PROCEDURE DIAGNOSIS: PAD HEART: normal rate. LUNGS: normal breathing at rest. ASA Classification ASA Classification: III-Severe systemic dis. Mallampati Score: II NPO: Yes Problems with prior sedation: No Obstructive Sleep Apnea: No Plan moderate sedation Allergies Coded Allergies: No Known Allergies (Unverified , 12/27/17) Home Medications Scheduled Ascorbic Acid (Vitamin C), 500 MG PO DAILY, (Reported) Atenolol (Atenolol), 25 MG PO DAILY, (Reported) Atorvastatin Calcium (Atorvastatin Calcium), 40 MG PO DAILY Calcium Carbonate/Vitamin D3 (Calcium 600 + Vit D 400 Softgl), 1 CAP PO DAILY, (Reported) Cholecalciferol (Vitamin D3) (Vitamin D3), 50 MCG PO BID, (Reported) Cinnamon Bark/Chromium Picolin (Cinnamon Plus Chromium Capsule), 1 CAP PO BID, (Reported) Clopidogrel Bisulfate (Clopidogrel), 75 MG PO DAILY, (Reported) Donepezil Hcl (Donepezil HCl Odt), 10 MG PO BID, (Reported) Exenatide Microspheres (Bydureon Bcise), 2 MG SC Q7D, (Reported) Ferrous Sulfate (Ferrous Sulfate), 325 MG PO DAILY, (Reported) Finasteride (Finasteride), 5 MG PO DAILY, (Reported) Furosemide (Furosemide), 20 MG PO DAILY, (Reported) Gabapentin (Gabapentin), 300 MG PO TID, (Reported) Hydralazine HCl (Hydralazine HCl), 25 MG PO BID, (Reported) Insulin Detemir (Levemir Flextouch), 50 UNIT SC BID, (Reported) L. Acidophilus/Pectin, [place] (Acidophilus Caplet), 1 TAB PO DAILY, (Reported) L.acidoph/L.bulg/B.bif/S.therm (Betina-Bid Caplet), 1 EA PO DAILY@1200 Levofloxacin (Levofloxacin), 750 MG PO DAILY Metronidazole (Metronidazole), 500 MG PO Q6H Milk Thistle Seed Extract (Milk Thistle), 200 MG PO BID, (Reported) Multivitamin (Multi-Vitamin Daily), 1 TAB PO DAILY, (Reported) Ramipril (Ramipril), 2.5 MG PO DAILY, (Reported) Zinc (Zinc), 50 MG PO DAILY, (Reported) Scheduled PRN Acetaminophen (Acetaminophen), 325 MG PO Q4-6H PRN for PAIN, (Reported) Tramadol HCl (Tramadol HCl), 50 MG PO Q6H PRN for PAIN, (Reported) VS, I&O, 24H, Fishbone Vital Signs/I&O Vital Signs Date Time Temp Pulse Resp B/P (MAP) Pulse Ox O2 Delivery O2 Flow Rate FiO2 02/27/20 06:45 97.2 59 18 98 Room Air Laboratory Data 24H LABS Laboratory Tests 2 02/27/20 06:48: Bedside Glucose (Misc Panel) 66L 02/27/20 07:30: Bedside Glucose (Misc Panel) 75L ZENAIDA BABCOCK MD Feb 27, 2020 07:40
[2020-02-27 12:55] VITALS: BP 151/67
--- NOTE | 2020-02-27 13:23 | POST-OPPD ---
Postoperative Procedure Note Date Of Procedure: Feb 27, 2020 Time Of Procedure: 12:19 PREOPERATIVE DIAGNOSIS: PAD POSTOPERATIVE DIAGNOSIS: same FINDINGS: Patent right sided inflow, EIA and SFA. Popliteal artery stenosis. Anterior tibial artery stenosis and occluded posterior tibial artery. Patent peroneal artery. 2 vessel run off to the right foot and collateral supply to calcaneal and plantar branches. PROCEDURE: right leg angiogram, popliteal and anterior tibial artery angioplasty. SURGEON: Gray ANESTHESIA: mod sed ESTIMATED BLOOD LOSS: < 5 ml COMPLICATIONS: none POSTOPERATIVE CONDITION: stable ZENAIDA BABCOCK MD Feb 27, 2020 13:23
--- NOTE | 2020-03-03 12:47 | REP ---
IR Right leg angiogram. IR Selective Right iliac artery catheterization. IR Selective Right common femoral artery catheterization. IR Right below-knee arterial runoff. IR right popliteal artery angioplasty. IR right anterior tibial artery angioplasty. IR Attempted antegrade right posterior tibial artery recanalization. IR Ultrasound guided left common femoral artery access. IR Moderate sedation. Clinical Information: Right lower extremity critical limb ischemia. One digit amputation. Physician: Dr Castellano.Procedure: The patient was advised of the benefits, risks, and alternatives of the procedure and informed consent was obtained.A time out was performed with verification of the patient's name, MRN, site of procedure, and type of procedure to be performed. The patient was positioned in the supine position on the angiographic table. The site was prepped and draped in the usual sterile fashion.Moderate sedation was performed by the physician including the presence of an independent trained observer who assisted in monitoring the patient's level of consciousness and physiological status. Following the administration of Fentanyl and Versed, the physician spent 120 minutes of continuous [id number] time with the patient. A tile classifier radiograph reveals no gross abnormality. Ultrasound left groin demonstrates patent left common femoral artery. The left common femoral artery was accessed with a micropuncture kit, under ultrasound guidance. A [employer] wire was advanced into the aorta. The micropuncture sheath was exchanged over the wire for a a 6-[place] vascular sheath. A flush catheter was advanced over the wire and used to catheterize the abdominal aorta. A pelvic arteriogram was performed. This demonstrates unremarkable infrarenal abdominal aorta. Patent bilateral common iliac, internal and external iliac arteries. Patent right common femoral, proximal superficial femoral and profunda femoris. A wire was advanced through the catheter under fluoroscopy guidance and used to gain up and over access into the right external iliac artery. The catheter was exchanged over the wire for a glide cath. The glide cath was advanced over the wire and used to catheterize the right common femoral artery. A right leg angiogram was performed. This demonstrates patent superficial femoral artery and profunda femoris. Angiography further down the right leg was performed and this demonstrates two areas of stenosis within the popliteal artery. Patent proximal anterior tibial artery with one area of focal stenosis. Patent tibioperoneal trunk and peroneal artery. Complete occlusion of the posterior tibial artery from its origin. A run off arteriogram to the right foot was performed. This demonstrates patent mid and distal anterior tibial artery. Patent dorsalis pedis. Patent peroneal artery to the ankle where it splits. Complete occlusion of the posterior tibial artery. Collateral supply supplying the medial and lateral plantar and calcaneal branches. A [place] catheter was advanced over the wire under fluoroscopy guidance and used to probe the origin of the posterior tibial artery. After successful proximal posterior tibial artery catheterization, injection of contrast confirmed extravasation and no further antegrade gain. The entire posterior tibial artery is heavily calcified. The catheter in conjunction with a wire was then used to catheterize the anterior tibial artery. A 3 x 100 mm Vado balloon was then advanced over the wire, under fluoroscopy guidance and positioned in the right anterior tibial artery. Angioplasty of the right anterior tibial artery was performed. Heparin was administered. The balloon was then deflated and repositioned over the wire under fluoroscopy guidance into the proximal anterior tibial artery and popliteal artery. Angioplasty in this location was performed. The balloon was then deflated and removed over the wire. A post angioplasty follow-up arteriogram was performed and this demonstrates resolution of the anterior tibial artery stenosis. There is still irregularity and stenosis in the popliteal artery. A 6 x 200 mm Vado balloon was then advanced over the wire under fluoroscopy guidance and positioned in the popliteal artery. Popliteal artery angioplasty was then performed. The balloon was deflated and removed over the wire. A post angioplasty follow-up arteriogram was performed and this demonstrates improved flow through the popliteal artery and resolution of popliteal artery stenosis. A final completion below-knee runoff arteriogram to the right foot was performed. This demonstrates good flow in the anterior tibial artery and preserved flow in the peroneal artery with no distal emboli, vessel spasm or cutoff. Preserved distal posterior tibial collateral flow. The catheter and wire were removed. A 6-[place] [employer] device was used to close the left groin arteriotomy. A sterile dressing was applied to the site. Patient tolerated the procedure well and was transferred to PRU in stable condition. Complications: None. Estimated blood loss: Less than 5 ml. Impression: 1. Right leg angiogram demonstrates patent superficial femoral artery and profunda femoris. 2. Focal stenosis in the popliteal artery and anterior tibial artery. Patent peroneal artery to the ankle. Complete occlusion of the posterior tibial artery with collateral supply to the calcaneal and medial lateral plantar branches. 3. Successful popliteal artery angioplasty. 4. Successful anterior tibial artery angioplasty. Thank you for this referral. Cc Dr. Mariano Electronically Signed by Natalie Castellano MD 03/03/2020 12:46 P
== END ==
LOC: M IRPRO 06:22
PROVIDERS: ATTEND Radiology Diagnostic Radiology
DX: I70.201 Unspecified atherosclerosis of native arteries of extremities, right leg (principal); I99.8 Other disorder of circulatory system; I12.9 Hypertensive chronic kidney disease with stage 1 through stage 4 chronic kidney disease, or unspecified chronic kidney disease; E11.51 Type 2 diabetes mellitus with diabetic peripheral angiopathy without gangrene; E11.22 Type 2 diabetes mellitus with diabetic chronic kidney disease; N18.9 Chronic kidney disease, unspecified; R60.0 Localized edema; Z79.899 Other long term (current) drug therapy; Z89.421 Acquired absence of other right toe(s)
CPT/HCPCS: 37224; 37228; 75710; 99152; 99153; C1725; C1760; C1769; C1887; C1894; J1200; J1644; J2250; J3010; Q9967

== ENCOUNTER → 2020-03-09 | Outpatient (CLI) | payer MEDICARE, OTHER ==
[~2020-03-09] MED LIST changes: -ISOVUE-300 61% 50ML VIAL As Ordered ONE; -LIDOCAINE 1% MDV 20ML VIAL As Ordered ONE; -MIDAZOLAM INJ 2MG/2ML VIAL (J2250 PER 1MG) As Ordered ONE; -PROMETHAZINE INJ 25 MG/ML VIAL (J2550) As Ordered ONE; -diphenhydrAMINE 50MG/ML VIAL (J1200) As Ordered ONE; -fentaNYL 100 MCG/2 ML INJECTION (J3010) As Ordered ONE
--- NOTE | 2020-03-09 23:11 | ECGEPIP ---
[facility] Test Date: 2020-03-09 Pat Name: JOHN JARA Department: Room: - Gender: Male Transferrer: YANETH : 1945 Requested By: Mekhi Blanco Order Number: [id number] Reading MD: George Campbell Measurements Intervals [place] Rate: 55 P: 12 MS: 194 QRS: 15 QRSD: 84 T: 9 QT: 436 QTc: 420 Interpretive Statements SINUS BRADYCARDIA WITH SINUS ARRHYTHMIA Nonspecific ST-T abnormalities. No prior ECG available for comparison at the time of interpretation. Electronically Signed on 03-09-2020 23:10:45 EDT by George Campbell
== END ==
LOC: M EKG 11:33
PROVIDERS: ATTEND Anesthesiology
DX: Z01.818 Encounter for other preprocedural examination (principal); I10 Essential (primary) hypertension

== ENCOUNTER → 2020-03-09 | Outpatient (CLI) | payer MEDICARE, OTHER | LOC: M LABSMTC 11:14 | PROVIDERS: ATTEND Anesthesiology | DX: Z01.818 Encounter for other preprocedural examination (principal); Z11.59 Encounter for screening for other viral diseases | CPT/HCPCS: C9803; U0003 ==

== ENCOUNTER → 2020-03-09 | Outpatient (POV) | payer MEDICARE, OTHER ==
[~2020-03-09] MED LIST changes: +ACET650T3 PO; +ALTA1CAP2 PO; +AMOX500T2 PO; +BACITAB PO; +DONE10TA90 PO; +FAMO20TA PO; +MAGNESIUM PO; +NOVOINJ3 SC; +ZINC PO
--- NOTE | 2020-03-11 08:22 | IRPN ---
[facility] IR Progress Note IR Progress Note DATE: Mar 09, 2020 Patient agreed to this telephone consultation. Duration of call was 5 minutes FOLLOW-UP: Status post left groin access for right leg angiogram and intervention, Patient complained of swelling and bruising left groin. Denies throbbing or lump. States swelling is going down and pain abating. Able to ambulate without difficulty, no nausea vomiting. I reviewed images patient sent to me by the patient. There is bruising over the access site and down the groin crease and scrotal sac. Patient is on Plavix Labs: 03/10/20 Hgb 9.0 ( 02/13/20 pre procedure 8.1) HCT 29 ( 02/13/20 25.1 ) WBC 8.4 PLT 226 IMPRESSION: Left groin hematoma status post access for angiogram. Bruising and swelling is going down. No drop in Hgb/HCT. Stopping Plavix at this time would likely be worse for his background problem of critical limb ischemia, therefore continue. Patient to call if swelling or bruising increases. I have ordered an ultrasound to check for pseudoaneurysm. Advised pressure and ice pack will help reduce the swelling. Follow up after US. Allergies Coded Allergies: No Known Allergies (Unverified , 12/27/17) ZENAIDA BABCOCK MD Mar 11, 2020 08:22
== END ==
LOC: M TMIRPOV 08:22
PROVIDERS: ATTEND Radiology Diagnostic Radiology
DX: M79.81 Nontraumatic hematoma of soft tissue (principal); I99.8 Other disorder of circulatory system

== ENCOUNTER 2020-03-10 10:12 | Day surgery (SDC) | payer MEDICARE, OTHER ==
[~2020-03-10] VITALS: Ht 160 cm; Wt 82.2 kg
[~2020-03-10 10:12] MED LIST changes: -ACET650T3 PO; -ALTA1CAP2 PO; -AMOX500T2 PO; -BACITAB PO; +BUPIVACAINE HCL 0.5% 10ML VIAL As Ordered ONE; -DONE10TA90 PO; -FAMO20TA PO; +LIDOCAINE 1% MDV 20ML VIAL As Ordered ONE; +LIDOCAINE 1% MDV 20ML VIAL SQ PRN; +LIDOCAINE 2% 100MG/5ML SDV (FOR ANES.) As Ordered ONE; +LR 1,000 ML IV ONE; -MAGNESIUM PO; +MIDAZOLAM INJ 2MG/2ML VIAL (J2250 PER 1MG) As Ordered ONE; -NOVOINJ3 SC; -ZINC PO; +ceFAZolin SOD 2 GM in IV 1 EA IV ONE; +dexameTHASONE 4 MG/ML 1ML VIAL (J1100 PER 1MG) As Ordered ONE; +propofoL 200 MG/20 ML VIAL As Ordered ONE
[2020-03-10] MEDS ORDERED: D5W/0.45% SODIUM CHLORIDE 1,000 ML IV SCH (11:15)
[2020-03-10 11:19] LABS: MEAN CORPUSCULAR HEMOGLOBIN 30.1 pg (27.0-33.0); PLATELET COUNT, AUTOMATED 226 10^3/uL (150-450); RED BLOOD COUNT 2.99 10^6/uL (4.30-6.10); WHITE BLOOD COUNT 8.4 10^3/uL (4.0-10.0)
[2020-03-10] MEDS ORDERED: KETAMINE HCL 200 MG/20 ML VIAL As Ordered ONE (11:32)
[2020-03-10 12:38] VITALS: BP 141/64
== END 2020-03-10 12:40 | disposition home or self-care (01) ==
LOC: M SDC 10:12
PROVIDERS: ATTEND Podiatrist Foot & Ankle Surgery
DX: L97.519 Non-pressure chronic ulcer of other part of right foot with unspecified severity (principal); E11.621 Type 2 diabetes mellitus with foot ulcer; N40.0 Benign prostatic hyperplasia without lower urinary tract symptoms; Z79.899 Other long term (current) drug therapy; I10 Essential (primary) hypertension; Z87.891 Personal history of nicotine dependence; Z79.4 Long term (current) use of insulin; G47.30 Sleep apnea, unspecified
CPT/HCPCS: 28820; 36415; 85027; 87486; 87581; 87633; 87798; 88305; J0690; J2250

== ENCOUNTER → 2020-03-16 | Outpatient (POV) | payer MEDICARE, OTHER ==
[~2020-03-16] MED LIST changes: +ACET650T3 PO; +ALTA1CAP2 PO; +AMOX500T2 PO; +BACITAB PO; -BUPIVACAINE HCL 0.5% 10ML VIAL As Ordered ONE; +DONE10TA90 PO; +FAMO20TA PO; -LIDOCAINE 1% MDV 20ML VIAL As Ordered ONE; -LIDOCAINE 1% MDV 20ML VIAL SQ PRN; -LIDOCAINE 2% 100MG/5ML SDV (FOR ANES.) As Ordered ONE; -LR 1,000 ML IV ONE; +MAGNESIUM PO; -MIDAZOLAM INJ 2MG/2ML VIAL (J2250 PER 1MG) As Ordered ONE; +NOVOINJ3 SC; +ZINC PO; -ceFAZolin SOD 2 GM in IV 1 EA IV ONE; -dexameTHASONE 4 MG/ML 1ML VIAL (J1100 PER 1MG) As Ordered ONE; -propofoL 200 MG/20 ML VIAL As Ordered ONE
--- NOTE | 2020-04-22 11:01 | IRPN ---
[facility] IR Progress Note IR Progress Note DATE: Mar 16, 2020 Patient agreed to this telephone consultation. Duration of call 5 minutes. FOLLOW-UP: Patient reported bruising and swelling status post left groin access for arteriogram. Pictures sent to me by the patient demonstrate bruising over the left groin access site. An ultrasound was ordered to check for pseudoaneurysm. Ultrasound showed no pseudoaneurysm. Per patient, the bruising and swelling is diminishing. No fevers or chills. The ultrasound was suggestive of a mass. A CT pelvis with IV contrast will be ordered to evaluate this region. Patient's hemoglobin stable. Follow-up clinic visit with CT Allergies Coded Allergies: No Known Allergies (Unverified , 12/27/17) ZENAIDA BABCOCK MD Apr 22, 2020 11:01
== END ==
LOC: M TMIRPOV 11:30
PROVIDERS: ATTEND Radiology Diagnostic Radiology
DX: Z48.812 Encounter for surgical aftercare following surgery on the circulatory system (principal); I70.201 Unspecified atherosclerosis of native arteries of extremities, right leg

== ENCOUNTER → 2020-03-31 | Outpatient (CLI) | payer MEDICARE, OTHER ==
[~2020-03-31] MED LIST changes: +GASTROGRAFIN SOLUTION 30ML (Q9963) ONE; +ISOVUE-370 76% 100ML VIAL ONE
--- NOTE | 2020-05-14 14:09 | REP ---
CT PELVIS WITH IV AND ORAL CONTRAST HISTORY: Hernia. CT CONTRAST DOSE: 100 mL of intravenous Isovue-370. COMPARISON: CT study 02/10/2020. CT FINDINGS: Preliminary digital fixer supervisor radiograph demonstrates moderate stool. Unremarkable bowel gas pattern otherwise. Normal appendix is seen in the right lower abdomen. Small and large bowel loops demonstrate left colonic diverticulosis without evidence of diverticulitis. There is a 4.1 cm cyst in the periphery of the left lower renal pole. This is unchanged. No retroperitoneal mass or adenopathy is seen. Prostate and urinary bladder are unremarkable. There appear to be small bilateral inguinal hernias. On the left, a small amount of abdominal fat and fluid is transmitted. On the right, there is a small quantity of abdominal fat. Vascular calcification is noted. Normal caliber aorta. IMPRESSION: Left renal cyst. Small bilateral inguinal hernias MTDD
== END ==
LOC: M RAD 11:40
PROVIDERS: ATTEND Radiology Diagnostic Radiology
DX: K44.9 Diaphragmatic hernia without obstruction or gangrene (principal); N28.1 Cyst of kidney, acquired
CPT/HCPCS: 72193; Q9963; Q9967

== ENCOUNTER → 2020-04-13 | Outpatient (POV) | payer MEDICARE, OTHER ==
[~2020-04-13] MED LIST changes: -GASTROGRAFIN SOLUTION 30ML (Q9963) ONE; -ISOVUE-370 76% 100ML VIAL ONE
--- NOTE | 2020-04-21 12:13 | IRPN ---
[facility] IR Progress Note IR Progress Note DATE: Apr 13, 2020 Patient agreed to this telephone follow-up. I spent 20 minutes reviewing imaging and in conversation with the patient. FOLLOW-UP: Status post angiogram greater than 1 month ago via left groin access. Patient complained of swelling, pain and bruising after the procedure. Patient states bruising is improving. An ultrasound was performed to look for pseudoaneurysm. I personally reviewed the ultrasound obtained 02/10/2020. The ultrasound is negative for pseudoaneurysm. However the report suggested CT follow-up for a possible potential mass. CT pelvis was performed 03/31/2020. I personally reviewed the CT pelvis with IV and oral contrast. No left groin arterial pseudoaneurysm, dissection or occlusion. No significant hematoma. There is a fat-containing left inguinal hernia. IMPRESSION: No complications status post left groin arterial access. No pseudoaneurysm, vessel dissection or residual hematoma. There is a fat- containing left inguinal hernia. Thank you for this referral Cc PCP Allergies Coded Allergies: No Known Allergies (Unverified , 12/27/17) ZENAIDA BABCOCK MD Apr 21, 2020 12:13
== END ==
LOC: M TMIRPOV 14:25
PROVIDERS: ATTEND Radiology Diagnostic Radiology
DX: Z48.812 Encounter for surgical aftercare following surgery on the circulatory system (principal); K40.90 Unilateral inguinal hernia, without obstruction or gangrene, not specified as recurrent

== ENCOUNTER → 2020-04-13 | Outpatient (POV) | payer MEDICARE, OTHER | LOC: M TMIRPOV 10:30 | PROVIDERS: ATTEND Radiology Diagnostic Radiology | DX: M79.605 Pain in left leg (principal); K40.90 Unilateral inguinal hernia, without obstruction or gangrene, not specified as recurrent ==

== ENCOUNTER 2020-04-28 12:07 | Inpatient (IN) | payer MEDICARE, OTHER ==
[~2020-04-28] VITALS: Ht 160 cm; Wt 82.6 kg
[~2020-04-28 12:07] MED LIST changes: -ACET650T3 PO; -ALTA1CAP2 PO; -AMOX500T2 PO; -BACITAB PO; -DONE10TA90 PO; -FAMO20TA PO; -MAGNESIUM PO; -NOVOINJ3 SC; -ZINC PO
[2020-04-28] MEDS ORDERED: FAMO20TA PO (12:27)
[2020-04-28] MEDS ORDERED: AMOX500T2 PO (12:27)
[2020-04-28 13:36] LABS: BASO % 0.3 % (0.0-1.0); EOS % 0.3 % (0.0-3.0); LYMPH # 1.1 10^3/uL (1.5-5.0); LYMPH % 8.2 % (24.0-44.0); MEAN CORPUSCULAR HEMOGLOBIN 29.2 pg (27.0-33.0); MEAN CORPUSCULAR HGB CONC 32.1 g/dl (32.0-36.5); MEAN CORPUSCULAR VOLUME 90.9 fl (80.0-96.0); MONO # 1.1 10^3/uL (0.0-0.8); MONO % 8.4 % (0.0-5.0); NEUTROPHILS # 10.7 10^3/uL (1.5-8.5); NEUTROPHILS % 82.3 % (36.0-66.0); PLATELET COUNT, AUTOMATED 253 10^3/uL (150-450); RED BLOOD COUNT 3.08 10^6/uL (4.30-6.10); WHITE BLOOD COUNT 12.9 10^3/uL (4.0-10.0)
--- NOTE | 2020-04-28 14:18 | REPVR ---
PROCEDURE INFORMATION: Exam: XR Right Foot Exam date and time: 04/28/2020 1:16 PM Age: 74 years old Clinical indication: Pain; Foot; Right; Additional info: Infection to right foot, R/O bone involvement TECHNIQUE: Imaging protocol: XR Right foot. Views: 1 or 2 views. COMPARISON: No relevant prior studies available. FINDINGS: Bones/joints: The 2nd and 3rd toes are absent from the levels of the metatarsophalangeal joints. No acute fracture or dislocation is identified. There is no osseous erosion or cortical destruction. The 1st metatarsophalangeal joint is mildly narrowed and with mild periarticular osteophyte formation. Some interphalangeal joints are narrowed. There are very small plantar and small posterior calcaneal enthesophytes. The medial hallux sesamoid is noted to be bipartite. Soft tissues: The soft tissues appear swollen distally. Vasculature: Atherosclerotic vascular calcifications are noted. IMPRESSION: 1. Distal soft tissue swelling without radiographic evidence for osteomyelitis. Three-phase bone scan or MRI would be more sensitive. 2. Degenerative and postoperative changes as described. Electronically signed by: Jignesh Rodríguez On 04/28/2020 14:18:42 PM
[2020-04-28 15:17] LABS: ALBUMIN 2.7 GM/DL (3.2-5.2); BILIRUBIN,TOTAL 0.6 MG/DL (0.2-1.0); CALCIUM LEVEL 8.1 MG/DL (8.8-10.2); CREATININE FOR GFR 1.46 MG/DL (0.70-1.30); GLOMERULAR FILTRATION RATE 50.4 (>42); POTASSIUM SERUM 5.2 MEQ/L (3.5-5.1); TOTAL PROTEIN 6.1 GM/DL (6.4-8.2)
[2020-04-28] MEDS ORDERED: ZINC PO (15:51)
[2020-04-28] MEDS ORDERED: NOVOINJ3 SC (15:51)
[2020-04-28] MEDS ORDERED: ALTA1CAP2 PO (15:51)
[2020-04-28] MEDS ORDERED: ACET650T3 PO (15:51)
[2020-04-28] MEDS ORDERED: DONE10TA90 PO (15:51)
[2020-04-28] MEDS ORDERED: MAGNESIUM PO (15:51)
[2020-04-28] MEDS ORDERED: ATOR1TAB21 PO (15:51)
[2020-04-28] MEDS ORDERED: BACITAB PO (15:51)
[2020-04-28] MEDS ORDERED: GLUCOSE 4GM CHEW TABLET PO PRN (16:00)
[2020-04-28] MEDS ORDERED: DEXTROSE 50% 50 ML SYRINGE IV PRN (16:00)
[2020-04-28] MEDS ORDERED: GLUCAGON INJ 1MG VIAL SC PRN (16:00)
[2020-04-28] MEDS ORDERED: SOD POLYSTYRENE SULFONATE SUSP 15 GM/60 ML UD PO ONE (16:30)
[2020-04-28] MEDS ORDERED: PIPERACILLIN/TAZOBACTAM SOD 3.375 GM in D5W MINI-BAG PLUS 50 ML IV ONE (16:30)
--- NOTE | 2020-04-28 16:47 | HPEPDOC ---
[facility] Medical History & Physical Date of Admission Apr 28, 2020 Date of Service: Apr 28, 2020 History and Physical Chief complaint: Who presented to the ER with complaints of R foot pain History of present illness: Patient is a 74 year old male with a PMHx of HTN, PVD s/p L leg angioplasty (2017 w/ Dr. Bazzi, [address] Castellano), IDDM2, DLP, CKD3, Hx of multiple diabetic foot ulcers and R foot 2nd and 3rd digit amputations (02/11/2020). Patient was admitted to [facility] on 02/09/2020 to 02/13/2020 for a right foot infection and had his 2nd and 3rd digit amputation. He was discharged home with Levofloxacin for treatment of multi-organism infection (Proteus Vulgaris, E. Faecalis, E. Coli, Anaerobic cocci, Bacteroides stercoris). Patient had wound cultures recently acquired as an outpatient on 04/19/2020 that showed growth of Pseudomonas. Patient was given Amoxicillin on that Day and has taken it for 7 days. Currently patient presented to the ER with worsening R foot pain, swelling and drainage. Patient notes that there is a foul odor and the area around his prior 3rd digit is open an oozing. Patient reports some chills, but denies any fevers. Patient denies any nausea, vomiting, chest pain, SOB, palpitations, abdominal pain, C/D or urinary discomfort. Denies any changes in appetite or weight. Past Medical History: HTN, PVD s/p L leg angioplasty (2017 w/ Dr. Bazzi, [address] Castellano), IDDM2, DLP, CKD3, Hx of multiple diabetic foot ulcers and R foot 2nd and 3rd digit amputations (02/11/2020). 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 [employer] Review of Systems: 10 point review of systems complete, all negative otherwise stated in HPI Physical exam: - Vitals: BP [148/65], HR [53], RR [18], Sat [100%RA], Temp [99.0F] - General: Lying in bed, No acute distress, Speaking in full sentences, AAOx3 - HEENT: NC, AT, PERRLA - CVS: RRR, +S1S2 - Lungs: Fair air entry bilaterally, No appreciable wheezing / rales / rhonchi - Abdomen: Soft, Non-distended, Non-tender - Extremities: No lower extremity edema, No calf tenderness - Neuro: No focal motor or sensory deficit - Skin: No visible rashes Assessment and Plan: Right foot diabetic ulcer; possible osteomyelitis - Patient presented to the ER with worsening right foot pain, associated with drainage / foul odor - Hemodynamically stable / afebrile - Leukocytosis; no lactic acidosis - Wound cultures completed on 04/19/2020: consistent with Pseudomonas alone - XR foot 04/28: 1. Distal soft tissue swelling without radiographic evidence for osteomyelitis. Three-phase bone scan or MRI would be more sensitive. 2. Degenerative and postoperative changes as described. - Will get MRI foot to evaluate for osteomyelitis - Will check blood cultures / MRSA screen / Wound cultures - Will start Zosyn - Discussed case with Dr. Mariano, will be on consultation; will make patient NPO post 8AM tomorrow morning; re: possible late procedure Acute kidney injury on CKD3 - Cr baseline of 0.9-1.0; Cr on admission 1.46 - Will avoid nephrotoxic medication - Will start IV fluid hydration Hyperkalemia - Will give kayexylate - c/w Telemetry monitoring for now Normocytic anemia - Hg appears to be at baseline - c/w Ferrous sulfate Dementia - Patient is fully oriented and lives alone - c/w Donepezil HTN - BP well controlled - c/w Atenolol, Hydralazine with holding parameters - Will hold Furosemide / Ramipril (re: CAM) PVD s/p L leg angioplasty (2017 w/ Dr. Bazzi, [address] Castellano) - c/w Atorvastatin and Plavix IDDM2 with Neuropathy - Will start ISS and adjusted dose of long acting insulin - c/w Gabapentin DLP - c/w Atorvastatin BPH - c/w Finasteride GERD - c/w Famotidine DVT prophylaxis - Will start Heparin Vital Signs Vital Signs Date Time Temp Pulse Resp B/P (MAP) Pulse Ox O2 Delivery O2 Flow Rate FiO2 04/28/20 14:42 53 148/65 (92) 70 115/57 (76) 65 129/60 (83) 04/28/20 14:04 99.0 18 100 Room Air Laboratory Data Labs 24H Laboratory Tests 2 04/28/20 13:13: Immature Granulocyte % (Auto) 0.5, Neutrophils (%) (Auto) 82.3H, Lymphocytes (%) (Auto) 8.2L, Monocytes (%) (Auto) 8.4H, Eosinophils (%) (Auto) 0.3, Basophils (%) (Auto) 0.3, Neutrophils # (Auto) 10.7H, Lymphocytes # (Auto) 1.1L, Monocytes # (Auto) 1.1H, Eosinophils # (Auto) 0.0, Basophils # (Auto) 0.0, Nucleated Red Blood Cells % (auto) 0.0, Anion Gap 4L, Glomerular Filtration Rate 50.4, Lactic Acid Level 0.8, Calcium Level 8.1L, Total Bilirubin 0.6, Aspartate Amino Transf (AST/SGOT) 48H, Alanine Aminotransferase (ALT/SGPT) 32, Alkaline Phosphatase 115, Total Protein 6.1L, Albumin 2.7L, Albumin/Globulin Ratio 0.8 CBC/BMP Laboratory Tests 04/28/20 13:13 Microbiology Microbiology 04/28/20 Blood Culture, Received Pending 04/28/20 Blood Culture, Received Pending Home Medications Scheduled Ascorbic Acid (Vitamin C) 500 Mg Tab, 500 MG PO DAILY Atenolol (Atenolol) 25 Mg Tab, 25 MG PO DAILY Atorvastatin Calcium (Atorvastatin Calcium) 20 Mg Tablet, 20 MG PO BID Calcium Carbonate/Vitamin D3 (Calcium 600 + Vit D 400 Softgl) 1 Each Capsule, 1 CAP PO BID Cholecalciferol (Vitamin D3) (Vitamin D3) 50 Mcg Tablet, 50 MCG PO BID Cinnamon Bark/Chromium Picolin (Cinnamon Plus Chromium Capsule) 1 Each Capsule, 1 CAP PO BID Clopidogrel Bisulfate (Clopidogrel) 75 Mg Tab, 75 MG PO DAILY Donepezil HCl (Donepezil HCl) 10 Mg Tablet, 10 MG PO BID Exenatide Microspheres (Bydureon Bcise) 2 Mg/0.85 Ml Auto.injct, 2 MG SC QWEEK SUNDAY Famotidine (Famotidine) 20 Mg Tablet, 20 MG PO DAILY Ferrous Sulfate (Ferrous Sulfate) 325 Mg Tab, 325 MG PO BID Finasteride (Finasteride) 5 Mg Tab, 5 MG PO QHS Furosemide (Furosemide) 20 Mg Tab, 20 MG PO DAILY Gabapentin (Gabapentin) 300 Mg Cap, 600 MG PO BID Hydralazine HCl (Hydralazine HCl) 25 Mg Tablet, 25 MG PO BID Insulin Aspart (Novolog Flexpen) 100 Unit/1 Ml Insuln.pen, 1 DOSE SC AC PER SLIDING SCALE Insulin Detemir (Levemir Flextouch) 100 Unit/Ml Inj, 40 UNIT SC BID L.acidoph/L.bulg/B.bif/S.therm (Bacid Caplet) 1 Each Tablet, 1 TAB PO BID Milk Thistle Seed Extract (Milk Thistle) 200 Mg Capsule, 200 MG PO BID Multivitamin (Multi-Vitamin Daily) 1 Tab Tab, 1 TAB PO DAILY Ramipril (Altace) 2.5 Mg Capsule, 2.5 MG PO QHS [zinc/magnesium] , 1 TAB PO QHS Scheduled PRN Acetaminophen (Pain Reliever) 650 Mg Tablet.er, 650 MG PO Q8H PRN for PAIN Allergies Coded Allergies: No Known Allergies (Unverified , 12/27/17) A-FIB/CHADSVASC A-FIB History Current/History of A-Fib/PAF?: No LORENZO RIBEIRO MD Apr 28, 2020 16:47
[2020-04-28] MEDS: HumaLOG INSULIN (NovoLOG) PER UNIT SC SCH ×2 (17:30→21:00)
[2020-04-28] MEDS: NS 1,000 ML IV SCH (18:44)
[2020-04-28] MEDS: LACTOBACILLUS ACIDOPHILUS CAP (BACID) PO SCH (18:44)
[2020-04-28] MEDS: PIPERACILLIN/TAZOBACTAM SOD 3.375 GM in D5W MINI-BAG PLUS 50 ML IV SCH (18:44)
[2020-04-28 18:45] VITALS: BP 152/74
[2020-04-28] MEDS ORDERED: ramipriL 5 MG CAP PO SCH (21:00)
[2020-04-28] MEDS: LEVEMIR (INSULIN DETEMIR) 1 UNITS/0.01ML SC SCH (21:00)
[2020-04-28] MEDS: ATORVASTATIN 20 MG TAB PO SCH (21:13)
[2020-04-28] MEDS: GABAPENTIN 300 MG CAP PO SCH (21:13)
[2020-04-28] MEDS: HEPARIN SOD (PORCINE) 5000UNITS/ML 1ML VIAL/SYRINGE SC SCH (21:13)
[2020-04-28] MEDS: FINASTERIDE 5 MG TAB PO SCH (21:13)
[2020-04-28] MEDS: DONEPEZIL 5 MG TAB PO SCH (21:15)
[2020-04-28] MEDS: **hydrALAZINE HCL** 25 MG TAB PO SCH (21:15)
[2020-04-28] MEDS: FERROUS SULFATE 325MG TAB PO SCH (21:15)
[2020-04-28 22:00] VITALS: BP 139/57
[2020-04-29] MEDS: PIPERACILLIN/TAZOBACTAM SOD 3.375 GM in D5W MINI-BAG PLUS 50 ML IV SCH ×4 (00:55→18:14)
[2020-04-29] MEDS: ACETAMINOPHEN TAB 650MG DOSE (2X325MG) PO PRN ×3 (01:03→21:09)
[2020-04-29] MEDS: HEPARIN SOD (PORCINE) 5000UNITS/ML 1ML VIAL/SYRINGE SC SCH ×3 (05:59→21:08)
[2020-04-29 06:00] VITALS: BP 160/69
[2020-04-29 06:18] LABS: BASO # 0.1 10^3/uL (0.0-0.2); BASO % 0.5 % (0.0-1.0); EOS # 0.1 10^3/uL (0.0-0.5); EOS % 1.1 % (0.0-3.0); HEMATOCRIT 26.6 % (42.0-52.0); HEMOGLOBIN 8.5 g/dl (13.5-17.5); LYMPH # 1.3 10^3/uL (1.5-5.0); LYMPH % 12.1 % (24.0-44.0); MEAN CORPUSCULAR HEMOGLOBIN 28.8 pg (27.0-33.0); MEAN CORPUSCULAR VOLUME 90.2 fl (80.0-96.0); MONO # 0.9 10^3/uL (0.0-0.8); MONO % 8.8 % (0.0-5.0); NEUTROPHILS # 8.3 10^3/uL (1.5-8.5); PLATELET COUNT, AUTOMATED 233 10^3/uL (150-450); RED BLOOD COUNT 2.95 10^6/uL (4.30-6.10); WHITE BLOOD COUNT 10.7 10^3/uL (4.0-10.0)
[2020-04-29 06:40] LABS: CALCIUM LEVEL 7.7 MG/DL (8.8-10.2); CREATININE FOR GFR 1.31 MG/DL (0.70-1.30); GLOMERULAR FILTRATION RATE 57.1 (>42); MAGNESIUM LEVEL 2.1 MG/DL (1.8-2.4); POTASSIUM SERUM 4.3 MEQ/L (3.5-5.1)
[2020-04-29] MEDS: HumaLOG INSULIN (NovoLOG) PER UNIT SC SCH ×4 (07:30→20:56)
[2020-04-29] MEDS: NS 1,000 ML IV SCH ×2 (08:54→17:00)
[2020-04-29] MEDS: MULTIVITAMINS/MINERALS THERAP 1 TAB PO SCH (08:55)
[2020-04-29] MEDS: DONEPEZIL 5 MG TAB PO SCH ×2 (08:55→21:08)
[2020-04-29] MEDS: ASCORBIC ACID 500 MG TAB PO SCH (08:55)
[2020-04-29] MEDS: LACTOBACILLUS ACIDOPHILUS CAP (BACID) PO SCH ×2 (08:55→18:13)
[2020-04-29] MEDS: LEVEMIR (INSULIN DETEMIR) 1 UNITS/0.01ML SC SCH ×2 (08:55→21:09)
[2020-04-29] MEDS: FERROUS SULFATE 325MG TAB PO SCH ×2 (08:56→21:07)
[2020-04-29] MEDS: FAMOTIDINE 20 MG TAB PO SCH (08:56)
[2020-04-29] MEDS: CLOPIDOGREL 75 MG TAB PO SCH (08:56)
[2020-04-29] MEDS: **hydrALAZINE HCL** 25 MG TAB PO SCH ×2 (08:56→21:07)
[2020-04-29] MEDS: ATORVASTATIN 20 MG TAB PO SCH ×2 (08:56→21:07)
[2020-04-29] MEDS: atenoloL 25 MG TAB PO SCH (08:57)
[2020-04-29] MEDS: GABAPENTIN 300 MG CAP PO SCH ×2 (08:59→21:08)
[2020-04-29] MEDS ORDERED: FUROSEMIDE 20 MG TAB PO SCH (09:00)
--- NOTE | 2020-04-29 14:22 | IPNPDOC ---
Text Note Date of Service The patient was seen on 04/29/20. NOTE Subjective: Patient is a 74 year old male with a PMHx of HTN, PVD s/p L leg angioplasty (2017 w/ Dr. Bazzi, [address] Castellano), IDDM2, DLP, CKD3, Hx of multiple diabetic foot ulcers and R foot 2nd and 3rd digit amputations (02/11/2020). Patient was admitted to the hospitalist service for worsening R foot ulcer. Podiatry was called on consultation. Patient was seen and examined at the bedside. Currently he reports that he feels better than yesterday. Reports some drainage from his foot still. Denies any CP, SOB or palpitations, denies any abdominal pain, N/V, C/D. Objective: Vitals (See below) General: Lying in bed, appears comfortable, AAOx3 HEENT: NC, AT CVS: RRR, +S1S2 Lungs: Fair air entry b/l, -w/r/r Abdomen: Soft, Non-distended, non-tender Extremities: No edema, - Calf tenderness Skin: R foot with 2/3rd digit amputated; area around 3rd digit with active drainage; yellow pus noted; surrounding erythema / warmth / mild tenderness Assessment and plan: Right foot diabetic ulcer; possible osteomyelitis - Clinically has had improvement of surrounding cellulitis - Hemodynamically stable / afebrile - Leukocytosis improving; no lactic acidosis - Wound cultures completed on 04/19/2020: consistent with Pseudomonas alone - Blood cultures (04/28): Negative at 24 hours - Wound cultures (04/28): Pending - MRSA screen negative - XR foot 04/28: 1. Distal soft tissue swelling without radiographic evidence for osteomyelitis. Three-phase bone scan or MRI would be more sensitive. 2. De generative and postoperative changes as described. - Unable to get MRI foot as patient has renal stents - c/w Zosyn (Day #2) - Consulted podiatry, Dr. Mariano; will be going to OR today Acute kidney injury on CKD3 - Cr baseline of 0.9-1.0; Cr on admission 1.46 - Has had mild improvement - Will avoid nephrotoxic medication - c/w IV fluid hydration s/p Hyperkalemia Normocytic anemia - Hg appears to be at baseline - c/w Ferrous sulfate Dementia - Patient is fully oriented and lives alone - c/w Donepezil HTN - BP well controlled - c/w Atenolol, Hydralazine with holding parameters - Will hold Furosemide / Ramipril (re: CAM) PVD s/p L leg angioplasty (2017 w/ Dr. Bazzi, [address] Castellano) - c/w Atorvastatin and Plavix IDDM2 with Neuropathy - c/w ISS and adjusted dose of long acting insulin - c/w Gabapentin DLP - c/w Atorvastatin BPH - c/w Finasteride GERD - c/w Famotidine DVT prophylaxis - c/w Heparin VS,Fishbone, I+O VS, Fishbone, I+O Laboratory Tests 04/29/20 05:54 Vital Signs Date Time Temp Pulse Resp B/P (MAP) Pulse Ox O2 Delivery O2 Flow Rate FiO2 04/29/20 08:57 78 162/64 04/29/20 06:00 98.2 16 97 Room Air I&O- Last 24 Hours up to 6 AM 04/29/20 06:00 Intake Total 1560 ml Output Total 320 ml Balance 1240 ml LORNEZO RIBEIRO MD Apr 29, 2020 14:22
[2020-04-29] MEDS ORDERED: LIDOCAINE 1% MDV 20ML VIAL As Ordered ONE (14:55)
[2020-04-29] MEDS ORDERED: BUPIVACAINE HCL 0.5% 10ML VIAL As Ordered ONE (14:55)
[2020-04-29] MEDS ORDERED: LIDOCAINE 2% 100MG/5ML SDV (FOR ANES.) As Ordered ONE (15:16)
[2020-04-29] MEDS ORDERED: dexameTHASONE 4 MG/ML 1ML VIAL (J1100 PER 1MG) As Ordered ONE (15:16)
[2020-04-29] MEDS ORDERED: ONDANSETRON 4MG/2ML VIAL As Ordered ONE (15:16)
[2020-04-29] MEDS ORDERED: MIDAZOLAM INJ 2MG/2ML VIAL (J2250 PER 1MG) As Ordered ONE (15:17)
[2020-04-29] MEDS ORDERED: fentaNYL 100 MCG/2 ML INJECTION (J3010) As Ordered ONE (15:17)
[2020-04-29] MEDS ORDERED: propofoL 500 MG/50 ML VIAL As Ordered ONE (15:17)
[2020-04-29] MEDS ORDERED: ONDANSETRON 4MG/2ML VIAL IV PRN (17:15)
[2020-04-29] MEDS ORDERED: PERCOCET 5MG/325MG TAB PO PRN (17:15)
[2020-04-29] MEDS ORDERED: fentaNYL 100 MCG/2 ML INJECTION (J3010) IV PRN (17:15)
[2020-04-29] MEDS ORDERED: LR 1,000 ML IV SCH (17:15)
[2020-04-29] MEDS: FINASTERIDE 5 MG TAB PO SCH (21:08)
[2020-04-29 22:00] VITALS: BP 139/58
[2020-04-30] MEDS: PIPERACILLIN/TAZOBACTAM SOD 3.375 GM in D5W MINI-BAG PLUS 50 ML IV SCH ×2 (02:12→06:34)
[2020-04-30 06:00] VITALS: BP 161/63
[2020-04-30 06:03] LABS: BASO % 0.1 % (0.0-1.0); HEMATOCRIT 25.7 % (42.0-52.0); HEMOGLOBIN 8.2 g/dl (13.5-17.5); LYMPH # 0.6 10^3/uL (1.5-5.0); LYMPH % 6.5 % (24.0-44.0); MEAN CORPUSCULAR HEMOGLOBIN 28.9 pg (27.0-33.0); MEAN CORPUSCULAR HGB CONC 31.9 g/dl (32.0-36.5); MEAN CORPUSCULAR VOLUME 90.5 fl (80.0-96.0); MONO # 0.3 10^3/uL (0.0-0.8); MONO % 3.7 % (0.0-5.0); NEUTROPHILS # 7.6 10^3/uL (1.5-8.5); PLATELET COUNT, AUTOMATED 205 10^3/uL (150-450); RED BLOOD COUNT 2.84 10^6/uL (4.30-6.10); WHITE BLOOD COUNT 8.5 10^3/uL (4.0-10.0)
[2020-04-30 06:26] LABS: CALCIUM LEVEL 7.6 MG/DL (8.8-10.2); CREATININE FOR GFR 1.34 MG/DL (0.70-1.30); GLOMERULAR FILTRATION RATE 55.6 (>42); MAGNESIUM LEVEL 2.1 MG/DL (1.8-2.4); POTASSIUM SERUM 4.7 MEQ/L (3.5-5.1)
[2020-04-30] MEDS: HEPARIN SOD (PORCINE) 5000UNITS/ML 1ML VIAL/SYRINGE SC SCH ×3 (06:34→21:27)
[2020-04-30] MEDS: LEVEMIR (INSULIN DETEMIR) 1 UNITS/0.01ML SC SCH ×2 (08:42→22:10)
[2020-04-30] MEDS: HumaLOG INSULIN (NovoLOG) PER UNIT SC SCH ×4 (08:43→21:00)
[2020-04-30] MEDS: CLOPIDOGREL 75 MG TAB PO SCH (08:44)
[2020-04-30] MEDS: GABAPENTIN 300 MG CAP PO SCH ×2 (08:44→21:27)
[2020-04-30] MEDS: FERROUS SULFATE 325MG TAB PO SCH ×2 (08:44→21:26)
[2020-04-30] MEDS: LACTOBACILLUS ACIDOPHILUS CAP (BACID) PO SCH ×2 (08:44→17:27)
[2020-04-30] MEDS: MULTIVITAMINS/MINERALS THERAP 1 TAB PO SCH (08:44)
[2020-04-30] MEDS: ATORVASTATIN 20 MG TAB PO SCH ×2 (08:44→21:27)
[2020-04-30] MEDS: ASCORBIC ACID 500 MG TAB PO SCH (08:44)
[2020-04-30] MEDS: FAMOTIDINE 20 MG TAB PO SCH (08:44)
[2020-04-30] MEDS: **hydrALAZINE HCL** 25 MG TAB PO SCH ×2 (08:46→21:26)
[2020-04-30] MEDS: atenoloL 25 MG TAB PO SCH (08:46)
[2020-04-30] MEDS: DONEPEZIL 5 MG TAB PO SCH ×2 (08:46→21:26)
[2020-04-30] MEDS ORDERED: FLUBLOK(EGG FREE)(QUAD)INFLUENZA VACC 0.5ML SYRINGE 18YRS & OLDER IM ONE (09:00)
[2020-04-30 09:49] LABS: C REACTIVE PROTEIN QUANTITATIV 13.6 MG/DL (0.00-0.30)
[2020-04-30] MEDS ORDERED: LevoFLOXacin 500 MG TABLET PO ONE (10:00)
--- NOTE | 2020-04-30 10:02 | IPNPDOC ---
Text Note Date of Service The patient was seen on 04/30/20. NOTE Subjective: Patient is a 74 year old male with a PMHx of HTN, PVD s/p L leg angioplasty (2017 w/ Dr. Bazzi, [address] Castellano), IDDM2, DLP, CKD3, Hx of multiple diabetic foot ulcers and R foot 2nd and 3rd digit amputations (02/11/2020). Patient was admitted to the hospitalist service for worsening R foot ulcer. Podiatry was called on consultation. Patient was seen and examined at the bedside. Patient reports he has had an uneventful evening denies any chest pain shortness of breath palpitations. Patient denies any nausea, vomiting, abdominal pain or any diarrhea. Patient reports that his foot feels fine, without any significant pain. Objective: Vitals (See below) General: Lying in bed, appears comfortable, AAOx3 HEENT: NC, AT CVS: RRR, +S1S2 Lungs: Fair air entry b/l, auscultation is free of rhonchi rales or wheezing Abdomen: Soft, without any distention or tenderness Extremities: Lower extremities are free of any edema, - Calf tenderness Skin: Right foot with dressing in place Assessment and plan: Right foot diabetic ulcer; possible osteomyelitis - Dressing is clean / intact - Hemodynamically stable / afebrile - s/p Leukocytosis, No lactic acidosis - Wound cultures completed on 04/19/2020: consistent with Pseudomonas alone - Wound cultures (04/28): Moderate gram negative rods, moderate strep - Blood cultures (04/28): Negative at 24 hours - MRSA screen negative - XR foot 04/28: 1. Distal soft tissue swelling without radiographic evidence for osteomyelitis. Three-phase bone scan or MRI would be more sensitive. 2. Degenerative and postoperative changes as described. - Unable to get MRI foot as patient has renal stents - s/p I&D and resection of 3rd metatarsal head; awaiting pathology - Will start Levaquin; Will DC Zosyn (Antibiotic day #3) - Dr. Mariano on Consult; appreciate their input s/p Acute kidney injury on CKD3 - Cr baseline of 0.9-1.0; Cr on admission 1.46 - Has had mild improvement - Will avoid nephrotoxic medication - c/w IV fluid hydration s/p Hyperkalemia Normocytic anemia - Hg appears to be at baseline - c/w Ferrous sulfate Dementia - Patient is fully oriented and lives alone - c/w Donepezil HTN - BP well controlled - c/w Atenolol, Hydralazine with holding parameters - Will continue to hold Furosemide / Ramipril (re: CAM) PVD s/p L leg angioplasty (2017 w/ Dr. Bazzi, [address] Castlelano) - c/w Atorvastatin and Plavix IDDM2 with Neuropathy - c/w ISS and adjusted dose of long acting insulin - c/w Gabapentin DLP - c/w Atorvastatin BPH - c/w Finasteride GERD - c/w Famotidine DVT prophylaxis - c/w Heparin Disposition: - Anticipate discharge within 24 hours VS,Dno, I+O VS, Don, I+O Laboratory Tests 04/30/20 05:49 Vital Signs Date Time Temp Pulse Resp B/P (MAP) Pulse Ox O2 Delivery O2 Flow Rate FiO2 04/30/20 08:46 159/62 04/30/20 08:46 57 04/30/20 06:00 98.0 16 100 Room Air 04/29/20 17:26 2 I&O- Last 24 Hours up to 6 AM 04/30/20 06:00 Intake Total 1450 ml Output Total 510 ml Balance 940 ml LORENZO RIBEIRO MD Apr 30, 2020 10:02
[2020-04-30] MEDS: NS 1,000 ML IV SCH ×2 (12:12→22:20)
[2020-04-30 14:00] VITALS: BP 148/62
[2020-04-30 18:48] VITALS: BP 158/89
[2020-04-30] MEDS: FINASTERIDE 5 MG TAB PO SCH (21:27)
[2020-04-30] MEDS: ACETAMINOPHEN TAB 650MG DOSE (2X325MG) PO PRN (21:27)
[2020-04-30 22:00] VITALS: BP_SYST 153; BP_SYST 157; BP_DIAS 65; BP_DIAS 87; O2SAT 96
[2020-04-30 22:55] VITALS: BP 157/87
[2020-04-30] MEDS ORDERED: FUROSEMIDE 40MG/4ML VIAL (J1940) IV ONE (23:15)
[2020-04-30 23:37] LABS: BLOOD UREA NITROGEN 25 MG/DL (7-18); CALCIUM LEVEL 8.6 MG/DL (8.8-10.2); CARBON DIOXIDE LEVEL 23 MEQ/L (21-32); CHLORIDE LEVEL 111 MEQ/L (98-107); CREATININE FOR GFR 1.15 MG/DL (0.70-1.30); GLOMERULAR FILTRATION RATE > 60.0 (>42); GLUCOSE, FASTING 220 MG/DL (70-100); MAGNESIUM LEVEL 1.9 MG/DL (1.8-2.4); PHOSPHORUS LEVEL 1.5 MG/DL (2.5-4.9); POTASSIUM SERUM 3.9 MEQ/L (3.5-5.1); SODIUM LEVEL 139 MEQ/L (136-145); TROPONIN I 0.03 NG/ML (< 0.10)
[2020-04-30] MEDS ORDERED: NITROGLYCERIN 0.4 MG SUBL TABLET SL PRN (23:45)
[2020-04-30] MEDS ORDERED: METOPROLOL TART 12.5 MG PER 1/2 TAB PO ONE (23:45)
--- NOTE | 2020-04-30 23:49 | REPVR ---
PROCEDURE INFORMATION: Exam: XR Chest, 1 View Exam date and time: 04/30/2020 11:35 PM Age: 74 years old Clinical indication: Other: Dyspnea, chest pain TECHNIQUE: Imaging protocol: XR of the chest Views: 1 view. COMPARISON: No relevant prior studies available. FINDINGS: Lungs: Slight coarsening of interstitial markings. Minimal left perihilar plate atelectasis. Question of minimal right infrahilar infiltrate. Pleural space: Unremarkable. No pleural effusion. No pneumothorax. Heart/Mediastinum: The heart is within normal limits considering AP and lordotic projection. Bones/joints: Anterior fusion of the lower cervical spine. Relative narrowing between the humeral heads and the acromion processes suggesting rotator cuff tears. IMPRESSION: 1. Coarse interstitial markings with minimal left perihilar plate atelectasis or scar and question of minimal right infrahilar infiltrate. 2. Otherwise negative lordotic chest. Electronically signed by: Eric Diaz On 04/30/2020 23:48:40 PM
[2020-04-30 23:53] LABS: NT-PRO BNP 11342 PG/ML (<125)
[2020-05-01] MEDS ORDERED: NITROGLYCERIN 2% OINT 1 GM *U/D* PKT As Ordered ONE (00:09)
[2020-05-01] MEDS ORDERED: IPRATROPIUM 0.5MG/ALBUTEROL 2.5MG INH SOL UD 3ML (DUONEB) NEB PRN (00:15)
[2020-05-01] MEDS ORDERED: FUROSEMIDE 20MG/2ML VIAL (J1940) IV ONE (00:15)
[2020-05-01] MEDS ORDERED: HEPARIN DRIP 25,000 UNITS in IV 1 EA IV SCH (00:21)
[2020-05-01 00:22] LABS: ABG BASE EXCESS -6.9 (-2.0-2.0); ABG PARTIAL PRESSURE CO2 53.3 mmHg (35.0-45.0); ABG PARTIAL PRESSURE O2 75.6 mmHg (75.0-100.0); ABG STANDARD HCO3 18.7 MEQ/L (22.0-26.0); ABG TOTAL CO2 22.7 MEQ/L (23.0-31.0)
[2020-05-01 00:25] VITALS: BP 204/82
[2020-05-01 00:26] LABS: ABG pH (ARTERIAL) 7.214 UNITS (7.350-7.450)
[2020-05-01] MEDS ORDERED: MORPHINE 10 MG/ML 1ML VIAL (J2270) IV ONE (00:30)
[2020-05-01] MEDS ORDERED: ASPIRIN 81 MG CHEW TABLET PO ONE (00:30)
[2020-05-01] MEDS ORDERED: NITROGLYCERIN 2% OINT 1 GM *U/D* PKT TOP ONE (00:30)
[2020-05-01] MEDS ORDERED: HEPARIN SOD (PORCINE) 5000UNITS/ML 1ML VIAL/SYRINGE IV PRN (00:30)
[2020-05-01] MEDS ORDERED: HEPARIN SOD (PORCINE) 5000UNITS/ML 1ML VIAL/SYRINGE IV ONE (00:30)
[2020-05-01] MEDS ORDERED: MORPHINE 4 MG/ML 1ML VIAL/SYRINGE (J2270) As Ordered ONE (00:38)
[2020-05-01] MEDS ORDERED: ALBUTEROL SULFATE 2.5 MG/0.5 ML INH NEB SOLN NEB PRN (00:45)
[2020-05-01] MEDS ORDERED: MORPHINE 4 MG/ML 1ML VIAL/SYRINGE (J2270) IV ONE (00:45)
[2020-05-01 00:53] LABS: INR 1.03; PROTHROMBIN TIME 13.7 SECONDS (11.8-14.0)
[2020-05-01 00:54] LABS: PARTIAL THROMBOPLASTIN TIME 32.1 SECONDS (25.0-38.4)
[2020-05-01] MEDS ORDERED: POTASSIUM PHOSPHATE INJ 15 MMOL in D5W 250 ML IV ONE (01:00)
[2020-05-01] MEDS ORDERED: MORPHINE 2 MG/ML 1ML VIAL (J2270) IV PRN ×2 (01:00→04:45)
[2020-05-01] MEDS ORDERED: PIPERACILLIN/TAZOBACTAM SOD 2.25 GM in D5W MINI-BAG PLUS 50 ML IV SCH (01:00)
--- NOTE | 2020-05-01 01:30 | REPVR ---
PROCEDURE INFORMATION: Exam: XR Chest, 1 View Exam date and time: 05/01/2020 1:23 AM Age: 74 years old Clinical indication: Other: SOB TECHNIQUE: Imaging protocol: XR of the chest Views: 1 view. COMPARISON: CR PORTABLE CHEST X-RAY 04/30/2020 11:19 PM FINDINGS: Lungs: Minimal bilateral perihilar and infrahilar infiltrates which are slightly increased overall since the prior study. Decreased left perihilar plate atelectasis. Pleural space: Question of minimal left pleural effusion. Heart/Mediastinum: The heart and mediastinum are unchanged. Bones/joints: Status post anterior fusion of the lower cervical spine. IMPRESSION: 1. Slightly increased bilateral perihilar and infrahilar infiltrates since 04/30/2020 and question of minimal left pleural effusion. 2. Decreased left perihilar plate atelectasis. Electronically signed by: Eric Diaz On 05/01/2020 01:29:52 AM
--- NOTE | 2020-05-01 01:31 | IPNPDOC ---
Text Note Date of Service The patient was seen on 05/01/20. NOTE SUBJECTIVE: Was called by staff at approximately 2300 on 04/30/2020 for patient complaining of new onset left sided chest pain with accompanying diaphoresis and a non-productive cough, I gave instructions for stat EKG and troponin and went to evaluate the patient. I arrived to the floor and patient was sitting upright in bed coughing but in no acute distress. On physical exam he had harsh inspiratory crackles bilaterally, was tachycardic, and mildly diaphoretic complaining of new onset left sided chest pain/pressure, non-pleuritic, non tender to palpation on exam with 1+ pitting edema to the knees in bilateral LE sating 90% on 2L NC. Portable CXR, BMP, BNP was ordered additionally and 40 mg IV lasix were ordered additionally. On review of the EKG 2mm of ST depression noted in V4-V6, ordered patient to be transferred down to PCU for better monitoring. Lab values returned showing unremarkable BMP with improved Cr, low phos, troponin of 0.03, and BNP of 11,000. Spoke with my attending, Dr. Villarreal who agreed with findings, new orders placed for metoprolol, additional lasix, and SL nitro given no inferior signs of ischemia on EKG. On arrival to PCU patient was in more respiratory distress than before and now on 15 L non-rebreather so the decision was made to transfer him to ICU instead. We reached out to Dr. Andersen once the troponin was back who recommended initiating heparin drip, felt transfer would not be possible as patient was too sick, and additionally recommended nitro paste, positive pressure ventilation, full dose ASA, and morphine. He also stated that in the event the patient improved enough from a respiratory perspective that he may be a candidate for a transfer in the morning. Patient was taken to ICU and started immediately on BiPAP for his increased work of breathing, hypoxia (down to 78 on nasal cannula while on floor), and to decrease patients preload. Obtained a stat ABG showing pH 7.21/53.3/75.6. At that point we reached out to Dr. Ortega for further instructions on the Bipap titration, she recommended increasing PEEP to 10, restarting Zosyn and to call her in the event we needed her. Dr. Andersen reached back out to check on patient by phone with further instructions regarding metoprolol dosing, nitro dosing, morphine dosing and gave instructions to double our initial lasix dose if urine output was <400cc over 1 hour. Orders were entered. Portable CXR was obtained to see if their were any worsening signs. Our differential diagnosis for this patient's sudden change and fluid overload included cardiac ischemia causing heart failure leading to flash pulmonary edema. As of 129, Patient is currently more stable with decreased work of breathing, continues to mentate well, and is not hypoxic on bipap. OBJECTIVE: PHYSICAL EXAM: Vitals: BP 157/87, HR 92 and regular, RR 24 without the use of accessory muscles of respiration, Satting 91% on 2L NC, General: Patient was sitting upright in bed coughing but in no acute distress. HEENT:NC, AT, EOMI, mucous membranes moist. CV: Tachycardic rate, regular rhythm, normal S1 and S2, no appreciable murmurs, gallops, rubs. Resp: Clear to ausculatation with coarse inspiratory crackles and harsh expiratory rhonchi, no wheezes. No dullness to percussion on exam. Ext: 1+ pitting edema in bilateral LE Neuro: A&Ox3 IMAGING/MICROBIOLOGY/LABORATORY: Please see below CXR #1: Coarse interstitial markings with minimal left perihilar plate atelectasis or scar and question of minimal right infrahilar infiltrate. 2. Otherwise negative lordotic chest. CXR #2: 1, Slightly increased bilateral perihilar and infrahilar infiltrates since 04/30/2020 and question of minimal left pleural effusion. 2. Decreased left perihilar plate atelectasis ASSESSMENT: 74 y/o M with acute hypoxic and hypercapnic respiratory failure 2/2 to acute congestive heart failure, pulmonary edema 2/2 to NSTEMI. PLAN: #. Acute hypoxic and hypercapnic respiratory failure likely 2/2 to acute CHF 2/2 to NSTEMI. Cannot r/o pulmonary embolus, possible PNA (less likely). -V4-V6 ST depression, trop neg x1 with incr on second to 1.63 -BNP 25078, repeat CXR above. -Currently on BiPAP -ABG showing improvement: initial-pH 7.21/53.3/75.6, repeat- 7.3/39.6/158.6 -Started on heparin gtt, morphine PRN, ASA, BB, nitro Q4 hrs, nitro PRN. S/p 60 mg lasix intially + 120 mg (extra dose per cards)= 180 mg total. Dee placed. NPO except meds while on Bipap. -C/w close monitoring of I&O's, daily wt, BiPAP, zosyn, duonebs ATC, albuterol PRN. -Cardiology (Dr. Andersen) and Pulmonary (Dr. Ortega) consulted -Discussed need for transfer with cardiology, likely possibility #. Acute congestive heart failure, type unknown . -+ 3 liters over past several days, lasix was held due to CAM and receiving fluids. -No prior echo on file -Follows with Dr. Jorge, cardiology, but patient cannot currently recall why. -Echocardiogram needed -C/w treatment above #. Hypertensive emergency -BP 204/82, elevated troponin -Improved with lasix, nitroglycerin, BB -Monitor carefully on tele, cycle troponins #. Lactic acidosis likely 2/2 to acute cardiac event -Monitor Q4hrs -Treatment above. #. Hypophosphatemia, acute -Replaced 15 mmol Kphos -F/u phos in AM. #. Hypomagnesemia, acute -Replacing with mag run x1 -F/u mag in AM #. IDDM2 with Neuropathy -Uncontrolled with BS >300 -Increased levemir to 27 U SC BID. -C/w Q6hr FS, ISS as patient is currently NPO, gabapentin #. Right foot diabetic ulcer possible osteomyelitis, sepsis -WBC slightly increased to 16, afebrile - Dressing is clean / intact - Wound cultures completed on 04/19/2020: consistent with Pseudomonas alone - Wound cultures (04/28): Moderate gram negative rods, moderate strep - Blood cultures (04/28): Negative at 48 hours - MRSA screen negative - XR foot 04/28: 1. Distal soft tissue swelling without radiographic evidence for osteomyelitis. Three-phase bone scan or MRI would be more sensitive. 2. Degen erative and postoperative changes as described. - Unable to get MRI foot as patient has renal stents - s/p I&D and resection of 3rd metatarsal head; awaiting pathology - On Levaquin, previously on Zosyn (completed 3 days) - Dr. Mariano on Consult; appreciate their input #. Acute kidney injury on CKD3 - Cr 1.25, improved - Will avoid nephrotoxic medication #. Normocytic anemia - Hg appears to be at baseline - Ferrous sulfate #. Hx of Dementia - Patient is fully oriented and lives alone - Donepezil #. PVD s/p L leg angioplasty (2017 w/ Dr. Bazzi, [address] Castellano) - c/w Atorvastatin and Plavix #. HLD -c/w Atorvastatin #. BPH - c/w Finasteride #. GERD - PPI IV #. DVT prophylaxis -Heparin gtt Critical care time: 120 minutes VS,Fishbone, I+O VS, Fishbone, I+O Laboratory Tests 04/30/20 05:49 04/30/20 23:06 Vital Signs Date Time Temp Pulse Resp B/P (MAP) Pulse Ox O2 Delivery O2 Flow Rate FiO2 05/01/20 00:46 32 186/96 NIPPV (BIPAP/CPAP) 70 05/01/20 00:25 97.8 124 92 15.0 I&O- Last 24 Hours up to 6 AM 05/01/20 06:00 Intake Total 2405 ml Output Total 425 ml Balance 1980 ml GME ATTESTATION GME ATTESTATION My faculty preceptor for this patient encounter was physically present during the encounter and was fully available. All aspects of the patient interview, examination, medical decision making process, and medical care plan development were reviewed and approved by the faculty preceptor. The faculty preceptor is aware and concurs with the plan as stated in the body of this note and will attest to such by his/her cosignature. ATTENDING NOTE I, Mala Villarreal, have independently examined this patient and performed my own physical exam, as well as reviewed the documentation and edited where necessary. I have discussed in detail with the resident / student the findings and plan of treatment as documented by the resident / student and edited their note. I agree with their findings and treatment plan and have edited their documentation. I will continue to follow the patient during this hospital stay. Current Medications Current Medications Medications (Trade) Dose Ordered Sig/Hank Route PRN Reason Start Time Stop Time Status Last Admin Dose Admin Acetaminophen (Tylenol Tab) 650 mg Q4H PRN PO PAIN OR FEVER 04/28/20 16:00 04/30/20 21:27 Albuterol Sulfate (Proventil Neb) 2.5 mg Q2HP PRN NEB SOB/WHEEZING 05/01/20 00:45 Albuterol/ Ipratropium (Duoneb (Ipr 0.5mg/Alb 2.5mg)) 3 ml Q4HP PRN NEB SOB/WHEEZING 05/01/20 00:15 05/01/20 00:35 DC Albuterol/ Ipratropium (Duoneb (Ipr 0.5mg/Alb 2.5mg)) 3 ml RQ4H NEB 05/01/20 04:00 05/01/20 03:16 Ascorbic Acid (Vitamin C) 500 mg DAILY PO 04/29/20 09:00 04/30/20 08:44 Atenolol (Tenormin) 25 mg DAILY PO 04/29/20 09:00 05/01/20 02:20 DC 04/29/20 08:57 Atorvastatin Calcium (Lipitor) 20 mg BID PO 04/28/20 21:00 04/30/20 21:27 Clopidogrel Bisulfate (PLAVix) 75 mg DAILY PO 04/29/20 09:00 04/30/20 08:44 Dextrose (Dextrose 50%) 25 ml ASDIRECTED PRN IV SEE LABEL COMMENTS 04/28/20 16:00 Donepezil HCl (AriCEPT) 10 mg BID PO 04/28/20 21:00 04/30/20 21:26 Famotidine (Pepcid) 20 mg DAILY PO 04/29/20 09:00 04/30/20 08:44 Fentanyl Citrate (Sublimaze) 25 mcg Q5MP PRN IV PAIN LEVEL 5-10 04/29/20 17:15 Ferrous Sulfate (Ferrous Sulfate) 325 mg BID PO 04/28/20 21:00 04/30/20 21:26 Finasteride (Proscar) 5 mg QHS PO 04/28/20 21:00 04/30/20 21:27 Furosemide (Lasix) 20 mg DAILY PO 04/29/20 09:00 04/28/20 16:07 DC Gabapentin (Neurontin) 600 mg BID PO 04/28/20 21:00 04/30/20 21:27 Glucagon (Glucagon) 1 mg ASDIRECTED PRN SC SEE LABEL COMMENTS 04/28/20 16:00 Glucose (Glucose) 16 GM ASDIRECTED PRN PO SEE LABEL COMMENTS 04/28/20 16:00 Heparin Sodium (Porcine) (Heparin) ASDIRECTED PRN IV SEE LABEL COMMENTS 05/01/20 00:30 Heparin Sodium (Porcine) (Heparin) 5,000 units Q8H SC 04/28/20 22:00 05/01/20 00:25 DC 04/30/20 21:27 Heparin Sodium (Porcine) 33170 units/IV Miscellaneous Supplies 250 ml @ 0 mls/hr Q0M IV 05/01/20 00:21 05/01/20 01:32 Home Med (Med Rec Complete!) ASDIRECTED XX 04/28/20 16:00 04/28/20 15:54 DC Hydralazine HCl (Apresoline) 25 mg BID PO 04/28/20 21:00 04/30/20 21:26 Insulin Detemir (Levemir Insulin) 20 units BID SC 04/28/20 21:00 04/30/20 22:10 Insulin Human Lispro (HumaLOG INSULIN) SEE PROTOCOL TABLE AC NM 04/28/20 17:30 05/01/20 01:12 DC 04/30/20 17:28 Insulin Human Lispro (HumaLOG INSULIN) SEE PROTOCOL TABLE Q6H NM 05/01/20 00:00 05/01/20 01:53 Insulin Human Lispro (HumaLOG INSULIN) SEE PROTOCOL TABLE QHS NM 04/28/20 21:00 05/01/20 01:12 DC Lactated Ringer's 1,000 ml @ 100 mls/hr Q10H IV 04/29/20 17:15 04/29/20 18:04 DC Lactobacillus Acidophilus (Bacid) 1 ea BID@0800,1800 PO 04/28/20 18:00 04/30/20 17:27 Levofloxacin (Levaquin) 250 mg DAILY@06 PO 05/01/20 06:00 05/01/20 00:56 DC Metoprolol Tartrate (Lopressor) 12.5 mg BID PO 05/01/20 09:00 05/01/20 02:20 DC Metoprolol Tartrate (Lopressor) 25 mg Q6H PO 05/01/20 06:00 Morphine Sulfate (Morphine Sulfate Inj) 2 mg Q10M PRN IV chest pain 05/01/20 01:00 05/01/20 02:00 DC Morphine Sulfate (Morphine Sulfate Inj) 2 mg Q4H PRN IV MODERATE PAIN (PS 5-7) 05/01/20 04:45 Multivitamins (Theragram-M) 1 tab DAILY PO 04/29/20 09:00 04/30/20 08:44 Nitroglycerin (Nitrobid 2%) 1 gm Q4H TOP 05/01/20 04:00 Nitroglycerin (Nitrostat (1/ 150)) 0.4 mg Q5MP PRN SL CHEST PAIN 04/30/20 23:45 Non-Formulary Medication (Heparin Iv Rate Change Documentation ml/ Hr) ASDIRECTED XX 05/01/20 00:30 05/06/20 00:29 Ondansetron HCl (ZOFRAN INJection) 4 mg Q4HP PRN IV NAUSEA OR VOMITING 04/29/20 17:15 04/29/20 18:15 DC Oxycodone/ Acetaminophen (Percocet 5mg/ 325mg Tablet) 1 tab ASDIRECTED PRN PO PAIN LEVEL 1-4 04/29/20 17:15 04/29/20 18:15 DC Piperacillin Sod/ Tazobactam Sod 2.25 gm/Dextrose 50 ml @ 100 mls/hr Q8H IV 05/01/20 01:00 05/01/20 01:41 Piperacillin Sod/ Tazobactam Sod 3.375 gm/Dextrose 50 ml @ 50 mls/hr Q6H IV 04/28/20 19:00 04/30/20 08:52 DC 04/30/20 06:34 Ramipril (Altace) 2.5 mg QHS PO 04/28/20 21:00 04/28/20 16:07 DC Sodium Chloride 1,000 ml @ 80 mls/hr [id number] IV 04/30/20 10:15 04/30/20 23:12 DC 04/30/20 22:20 Sodium Chloride 1,000 ml @ 80 mls/hr [id number] IV 04/28/20 16:00 04/29/20 18:04 DC 04/29/20 08:54 Allergies Coded Allergies: No Known Allergies (Unverified , 12/27/17) DUSTIN DORAN DO May 01, 2020 01:31 Mala Villarreal MD May 01, 2020 02:47
[2020-05-01] MEDS: HumaLOG INSULIN (NovoLOG) PER UNIT SC SCH ×2 (01:53→06:01)
[2020-05-01 02:00] VITALS: BP 154/71
[2020-05-01 02:45] LABS: CK-MB VALUE MASS 7.1 NG/ML (<3.6); MB/CK RELATIVE INDEX 5.38 (< OR =4); TROPONIN I 1.63 NG/ML (< 0.10)
[2020-05-01] MEDS ORDERED: FUROSEMIDE 100MG/10ML VIAL (J1940) IV ONE (02:45)
[2020-05-01 03:00] VITALS: BP 34/70
[2020-05-01 03:12] LABS: ABG BASE EXCESS -4.9 (-2.0-2.0); ABG HCO3 20.6 MEQ/L (22.0-26.0); ABG PARTIAL PRESSURE CO2 39.6 mmHg (35.0-45.0); ABG PARTIAL PRESSURE O2 158.6 mmHg (75.0-100.0); ABG STANDARD HCO3 20.5 MEQ/L (22.0-26.0); ABG TOTAL CO2 21.8 MEQ/L (23.0-31.0); ABG pH (ARTERIAL) 7.334 UNITS (7.350-7.450)
[2020-05-01 04:00] VITALS: BP 110/56
[2020-05-01] MEDS ORDERED: IPRATROPIUM 0.5MG/ALBUTEROL 2.5MG INH SOL UD 3ML (DUONEB) NEB SCH (04:00)
[2020-05-01] MEDS ORDERED: NITROGLYCERIN 2% OINT 1 GM *U/D* PKT TOP SCH (04:00)
[2020-05-01 04:46] LABS: BASO % 0.2 % (0.0-1.0); EOS % 0.1 % (0.0-3.0); HEMATOCRIT 33.7 % (42.0-52.0); LYMPH # 1.2 10^3/uL (1.5-5.0); LYMPH % 7.1 % (24.0-44.0); MEAN CORPUSCULAR HEMOGLOBIN 28.7 pg (27.0-33.0); MEAN CORPUSCULAR HGB CONC 30.9 g/dl (32.0-36.5); MEAN CORPUSCULAR VOLUME 93.1 fl (80.0-96.0); MONO % 6.2 % (0.0-5.0); NEUTROPHILS # 14.2 10^3/uL (1.5-8.5); NEUTROPHILS % 85.5 % (36.0-66.0); PLATELET COUNT, AUTOMATED 304 10^3/uL (150-450); RED BLOOD COUNT 3.62 10^6/uL (4.30-6.10); WHITE BLOOD COUNT 16.6 10^3/uL (4.0-10.0)
[2020-05-01 04:51] LABS: HEMOGLOBIN 10.4 g/dl (13.5-17.5)
[2020-05-01 04:59] LABS: BLOOD UREA NITROGEN 27 MG/DL (7-18); C REACTIVE PROTEIN QUANTITATIV 8.03 MG/DL (0.00-0.30); CALCIUM LEVEL 8.5 MG/DL (8.8-10.2); CARBON DIOXIDE LEVEL 23 MEQ/L (21-32); CHLORIDE LEVEL 110 MEQ/L (98-107); CK-MB VALUE MASS 22.8 NG/ML (<3.6); CPK CREATINE PHOSPHOKINASE 327 U/L (39-308); CREATININE FOR GFR 1.25 MG/DL (0.70-1.30); GLOMERULAR FILTRATION RATE > 60.0 (>42); GLUCOSE, FASTING 332 MG/DL (70-100); MAGNESIUM LEVEL 1.7 MG/DL (1.8-2.4); MB/CK RELATIVE INDEX 6.97 (< OR =4); POTASSIUM SERUM 3.9 MEQ/L (3.5-5.1); SODIUM LEVEL 136 MEQ/L (136-145); TROPONIN I 9.96 NG/ML (< 0.10)
[2020-05-01] MEDS ORDERED: MAG SULF 1GM/100ML (MAG RUN) 1 GM in IV 1 EA IV ONE (05:15)
[2020-05-01 05:58] VITALS: BP 107/73
[2020-05-01] MEDS ORDERED: METOPROLOL TART 25 MG TABLET PO SCH (06:00)
[2020-05-01] MEDS ORDERED: LevoFLOXacin 250 MG TABLET PO SCH (06:00)
--- NOTE | 2020-05-01 06:16 | DS.PDOC ---
Discharge Summary General Date of Admission Apr 28, 2020 at 15:52 Date of Discharge 05/01/2020 Primary Care Physician: Coby Haskins Attending Physician: Mala Villarreal MD Specialist/Consultants Involve: RUTHIE KITCHEN DPM Discharge Summary PROCEDURES PERFORMED DURING STAY: R-foot I&D ADMITTING/DISCHARGE DIAGNOSES: #. NSTEMI #. Acute CHF (no echo available) #. Hypertensive emergency #. Lactic acidosis #. Hypophosphatemia #. hypomagnesemia #. IDDM2 with Neuropathy #. Right foot ulcer possible osteomyelitis, sepsis #. Acute kidney injury on CKD3 (resolved) #. Normocytic anemia (hgb appears to be at baseline) #. Hx of Dementia (Patient is fully oriented and lives alone) #. PVD s/p L leg angioplasty (2017 w/ Dr. Bazzi, [address] Castellano) #. HLD #. BPH #. GERD COMPLICATIONS/CHIEF COMPLAINT: Infection Of Toe As Complication Of Amputation. HISTORY OF PRESENT ILLNESS: Patient is a 74 year old male with a PMHx of HTN, PVD s/p L leg angioplasty (2017 w/ Dr. Bazzi, [address] Castellano), IDDM2, DLP, CKD3, Hx of multiple diabetic foot ulcers and R foot 2nd and 3rd digit amputations (02/11/2020). Patient was admitted to [facility] on 02/09/2020 to 02/13/2020 for a right foot infection and had his 2nd and 3rd digit amputation. He was discharged home with Levofloxacin for treatment of multi-organism infection (Proteus Vulgaris, E. Faecalis, E. Coli, Anaerobic cocci, Bacteroides stercoris). Patient had wound cultures recently acquired as an outpatient on 04/19/2020 that showed growth of Pseudomonas. Patient was given Amoxicillin on that Day and has taken it for 7 days. Currently patient presented to the ER with worsening R foot pain, swelling and drainage. Patient notes that there is a foul odor and the area around his prior 3rd digit is open an oozing. Patient reports some chills, but denies any fevers. Patient denies any nausea, vomiting, chest pain, SOB, palpitations, abdominal pain, C/D or urinary discomfort. Denies any changes in appetite or weight. HOSPITAL COURSE:Patient was placed on IV antibiotics and went for I&D with podiatry on 04/29/2020 out of concern for osteomyelitis of his right foot wound. He improved over the next 2 days and was switched to oral Levofloxacin on 04/30/2020. The night of 04/30 at ~2300, staff contacted night provider as patient was complaining of new onset left sided chest pain with accompanying diaphoresis and a non-productive cough, I gave instructions for stat EKG and troponin and went to evaluate the patient. I arrived to the floor and patient was sitting upright in bed coughing but in no acute distress. On physical exam he had harsh inspiratory crackles bilaterally, was tachycardic, and mildly diaphoretic complaining of new onset left sided chest pain/pressure, non-pleuritic, non tender to palpation on exam with 1+ pitting edema to the knees in bilateral LE sating 90% on 2L NC. Portable CXR, BMP, BNP was ordered additionally and 40 mg IV lasix were ordered additionally. On review of the EKG 2mm of ST depression noted in V4-V6, ordered patient to be transferred down to PCU for better monitoring. Lab values returned showing unremarkable BMP with improved Cr, low phos, troponin of 0.03, and BNP of 11,000. Spoke with my attending, Dr. Villarreal who agreed with findings, new orders placed for metoprolol, additional lasix, and SL nitro given no inferior signs of ischemia on EKG. On arrival to PCU patient was in more respiratory distress than before and now on 15 L non- rebreather so the decision was made to transfer him to ICU instead. We reached out to Dr. Andersen once the troponin was back who recommended initiating heparin drip, felt transfer would not be possible as patient was too sick, and additionally recommended nitro paste, positive pressure ventilation, full dose ASA, and morphine. He also stated that in the event the patient improved enough from a respiratory perspective that he may be a candidate for a transfer in the morning. Patient was taken to ICU and started immediately on BiPAP for his increased work of breathing, hypoxia (down to 78 on nasal cannula while on floor), and to decrease patients preload. Obtained a stat ABG showing pH 7.21/53.3/75.6. At that point we reached out to Dr. Ortega for further instructions on the Bipap titration, she recommended increasing PEEP to 10, restarting Zosyn and to call her in the event we needed her. Dr. Andersen reached back out to check on patient by phone with further instructions regarding metoprolol dosing, nitro dosing, morphine dosing and gave instructions to double our initial lasix dose if urine output was <400cc over 1 hour. Orders were entered. Portable CXR was obtained to see if their were any worsening signs. Our differential diagnosis for this patient's sudden change and fluid overload included cardiac ischemia causing heart failure leading to flash pulmonary ed keny. As of 129, Patient is currently more stable with decreased work of breathing, continues to mentate well, and is not hypoxic on bipap. Repeat troponins showed elevations of 1.[address] Andersen (cardiology) was contacted and recommended immediate transfer for consideration of cardiac cath now that the patient was more stable and in less respiratory distress. Patient amenable to transfer to [facility] [place] and his point of contact (daughter) was updated of his change in status. #. Acute hypoxic and hypercapnic respiratory failure likely 2/2 to acute CHF 2/2 to NSTEMI. Cannot r/o pulmonary embolus, possible PNA (less likely). -V4-V6 ST depression, trop neg x1 with incr on second to 1.63 -BNP 02769, repeat CXR above. -Currently on BiPAP -ABG showing improvement: initial-pH 7.21/53.3/75.6, repeat- 7.3/39.6/158.6 -Started on heparin gtt, morphine PRN, ASA, BB, nitro Q4 hrs, nitro PRN. S/p 60 mg lasix intially + 120 mg (extra dose per cards)= 180 mg total. Dee placed. NPO except meds while on Bipap. -C/w close monitoring of I&O's, daily wt, BiPAP, zosyn, duonebs ATC, albuterol PRN. -Cardiology (Dr. Andersen) and Pulmonary (Dr. Ortega) consulted -Discussed need for transfer with cardiology, likely possibility #. Acute congestive heart failure, type unknown . -+ 3 liters over past several days, lasix was held due to CAM and receiving fluids. -No prior echo on file -Follows with Dr. Jorge, cardiology, but patient cannot currently recall why. -Echocardiogram needed -C/w treatment above #. Hypertensive emergency -BP 204/82, elevated troponin -Improved with lasix, nitroglycerin, BB -Monitor carefully on tele, cycle troponins #. Lactic acidosis likely 2/2 to acute cardiac event -Monitor Q4hrs -Treatment above. #. Hypophosphatemia, acute -Replaced 15 mmol Kphos -F/u phos in AM. #. Hypomagnesemia, acute -Replacing with mag run x1 -F/u mag in AM #. IDDM2 with Neuropathy -Uncontrolled with BS >300 -Increased levemir to 27 U SC BID. -C/w Q6hr FS, ISS as patient is currently NPO, gabapentin #. Right foot diabetic ulcer possible osteomyelitis, sepsis -WBC slightly increased to 16, afebrile - Dressing is clean / intact - Wound cultures completed on 04/19/2020: consistent with Pseudomonas alone - Wound cultures (04/28): Moderate gram negative rods, moderate strep - Blood cultures (04/28): Negative at 48 hours - MRSA screen negative - XR foot 04/28: 1. Distal soft tissue swelling without radiographic evidence for osteomyelitis. Three-phase bone scan or MRI would be more sensitive. 2. Degenerative and postoperative changes as described. - Unable to get MRI foot as patient has renal stents - s/p I&D and resection of 3rd metatarsal head; awaiting pathology - On Levaquin, previously on Zosyn (completed 3 days) - Dr. Kitchen on Consult; appreciate their input #. Acute kidney injury on CKD3 - Cr 1.25, improved - Will avoid nephrotoxic medication #. Normocytic anemia - Hg appears to be at baseline - Ferrous sulfate #. Hx of Dementia - Patient is fully oriented and lives alone - Donepezil #. PVD s/p L leg angioplasty (2017 w/ Dr. Bazzi, [address] Castellano) - c/w Atorvastatin and Plavix #. HLD -c/w Atorvastatin #. BPH - c/w Finasteride #. GERD - PPI IV #. DVT prophylaxis -Heparin gtt DISCHARGE MEDICATIONS: Please see below. ALLERGIES: Please see below. PHYSICAL EXAMINATION ON DISCHARGE: PHYSICAL EXAM: Vitals: See below General: Patient laying in bed with bipap in place in no acute distress HEENT:NC, AT, EOMI, mucous membranes moist. CV: RRR, normal S1 and S2, no appreciable murmurs, gallops, rubs. Resp: Clear to auscultation with coarse inspiratory crackles and harsh expiratory rhonchi, no wheezes. No dullness to percussion on exam. abd: soft, non-tender, non distended. Ext: 1+ pitting edema in bilateral LE Neuro: A&Ox3. No focal motor or sensory deficits Psych: Normal mood and affect LABORATORY DATA: Please see below. IMAGIN04/28/2020 Right Foot XRAY IMPRESSION: 1. Distal soft tissue swelling without radiographic evidence for osteomyelitis. Three-phase bone scan or MRI would be more sensitive. 2. Degenerative and postoperative changes as described. 04/30/2020 CXR: Coarse interstitial markings with minimal left perihilar plate atelectasis or scar and question of minimal right infrahilar infiltrate. 2. Otherwise negative lordotic chest. 05/01/2020 CXR: 1, Slightly increased bilateral perihilar and infrahilar infiltrates since 04/30/2020 and question of minimal left pleural effusion. 2. Decreased left perihilar plate atelectasis PROGNOSIS: Guarded ACTIVITY: bedrest. DIET: consistent carb, low sodium DISCHARGE PLAN: transfer to [facility] DISCHARGE CONDITION: [Stable]. TIME SPENT ON DISCHARGE: 35 minutes Vital Signs/I&Os Vital Signs Date Time Temp Pulse Resp B/P (MAP) Pulse Ox O2 Delivery O2 Flow Rate FiO2 05/01/20 05:58 93 107/73 05/01/20 00:56 25 NIPPV (BIPAP/CPAP) 05/01/20 00:46 70 05/01/20 00:25 97.8 92 15.0 I&O- Last 24 Hours up to 6 AM 05/01/20 06:00 Intake Total 2455 ml Output Total 975 ml Balance 1480 ml Laboratory Data Labs 24H Laboratory Tests 2 04/30/20 06:15: Bedside Glucose (Misc Panel) 281H 04/30/20 11:30: Bedside Glucose (Misc Panel) 303H 04/30/20 16:50: Bedside Glucose (Misc Panel) 130H 04/30/20 20:09: Bedside Glucose (Misc Panel) 139H 04/30/20 23:06: Anion Gap 5L, Glomerular Filtration Rate > 60.0, Calcium Level 8.6L, Phosphorus Level 1.5L, Magnesium Level 1.9, Troponin I 0.03, MD-Tfi-O-Type Natriuretic Peptide [id number] 05/01/20 00:14: Bedside Glucose (Misc Panel) 336H 05/01/20 00:15: Blood Gas Bicarbonate Standard 18.7L, Arterial Blood pH 7.214*L, Arterial Blood Partial Pressure CO2 53.3H, Arterial Blood Partial Pressure O2 75.6, Arterial Blood Total CO2 22.7L, Arterial Blood HCO3 21.0L, Arterial Blood Base Excess - 6.9L, Arterial Blood Oxygen Saturation 92.0L 05/01/20 00:30: Prothrombin Time 13.7, Prothromb Time International Ratio 1.03, Activated Partial Thromboplast Time 32.1, Lactic Acid Level 2.8*H 05/01/20 01:51: Total Creatine Kinase 132, Creatine Kinase MB 7.1H, Creatine Kinase MB Relative Index 5.38H, Troponin I 1.63#*H 05/01/20 03:02: Blood Gas Bicarbonate Standard 20.5L, Arterial Blood pH 7.334L, Arterial Blood Partial Pressure CO2 39.6, Arterial Blood Partial Pressure O2 158.6H, Arterial Blood Total CO2 21.8L, Arterial Blood HCO3 20.6L, Arterial Blood Base Excess - 4.9L, Arterial Blood Oxygen Saturation 99.0 05/01/20 04:14: Total Creatine Kinase 327#H, Creatine Kinase MB 22.8H, Creatine Kinase MB Relative Index 6.97H, Troponin I 9.96#*H, Immature Granulocyte % (Auto) 0.9, Neutrophils (%) (Auto) 85.5H, Lymphocytes (%) (Auto) 7.1L, Monocytes (%) (Auto) 6.2H, Eosinophils (%) (Auto) 0.1, Basophils (%) (Auto) 0.2, Neutrophils # (Auto) 14.2H, Lymphocytes # (Auto) 1.2L, Monocytes # (Auto) 1.0H, Eosinophils # (Auto) 0.0, Basophils # (Auto) 0.0, Nucleated Red Blood Cells % (auto) 0.0, Anion Gap 3L, Glomerular Filtration Rate > 60.0, Calcium Level 8.5L, Magnesium Level 1.7L, C-Reactive Protein, Quantitative 8.03H 05/01/20 05:00: Lactic Acid Followup at 4 Hours 1.9 CBC/BMP Laboratory Tests 04/30/20 23:06 05/01/20 04:14 FSBS Laboratory Tests Test 04/30/20 06:15 04/30/20 11:30 04/30/20 16:50 04/30/20 20:09 Range/Units Bedside Glucose (Misc Panel) 281 303 130 139 83-110 MG/DL Test 05/01/20 00:14 Range/Units Bedside Glucose (Misc Panel) 336 83-110 MG/DL Microbiology Microbiology 04/28/20 Gram Stain - Final, Resulted 04/28/20 Wound Culture, Resulted Pending 04/28/20 Blood Culture - Preliminary, Resulted No Growth after 48 hours. All Specime... 04/28/20 Blood Culture - Preliminary, Resulted No Growth after 48 hours. All Specime... Discharge Medications Scheduled Ascorbic Acid (Vitamin C) 500 Mg Tab, 500 MG PO DAILY, (Reported) Atenolol (Atenolol) 25 Mg Tab, 25 MG PO DAILY, (Reported) Atorvastatin Calcium (Atorvastatin Calcium) 20 Mg Tablet, 20 MG PO BID, (Reported) Calcium Carbonate/Vitamin D3 (Calcium 600 + Vit D 400 Softgl) 1 Each Capsule, 1 CAP PO BID, (Reported) Cholecalciferol (Vitamin D3) (Vitamin D3) 50 Mcg Tablet, 50 MCG PO BID, (Reported) Cinnamon Bark/Chromium Picolin (Cinnamon Plus Chromium Capsule) 1 Each Capsule, 1 CAP PO BID, (Reported) Clopidogrel Bisulfate (Clopidogrel) 75 Mg Tab, 75 MG PO DAILY, (Reported) Donepezil HCl (Donepezil HCl) 10 Mg Tablet, 10 MG PO BID, (Reported) Exenatide Microspheres (Bydureon Bcise) 2 Mg/0.85 Ml Auto.injct, 2 MG SC QWEEK, (Reported) SUNDAY Famotidine (Famotidine) 20 Mg Tablet, 20 MG PO DAILY, (Reported) Ferrous Sulfate (Ferrous Sulfate) 325 Mg Tab, 325 MG PO BID, (Reported) Finasteride (Finasteride) 5 Mg Tab, 5 MG PO QHS, (Reported) Furosemide (Furosemide) 20 Mg Tab, 20 MG PO DAILY, (Reported) Gabapentin (Gabapentin) 300 Mg Cap, 600 MG PO BID, (Reported) Hydralazine HCl (Hydralazine HCl) 25 Mg Tablet, 25 MG PO BID, (Reported) Insulin Aspart (Novolog Flexpen) 100 Unit/1 Ml Insuln.pen, 1 DOSE SC AC, (Reported) PER SLIDING SCALE Insulin Detemir (Levemir Flextouch) 100 Unit/Ml Inj, 40 UNIT SC BID, (Reported) L.acidoph/L.bulg/B.bif/S.therm (Bacid Caplet) 1 Each Tablet, 1 TAB PO BID, (Reported) Milk Thistle Seed Extract (Milk Thistle) 200 Mg Capsule, 200 MG PO BID, (Reported) Multivitamin (Multi-Vitamin Daily) 1 Tab Tab, 1 TAB PO DAILY, (Reported) Ramipril (Altace) 2.5 Mg Capsule, 2.5 MG PO QHS, (Reported) [zinc/magnesium] , 1 TAB PO QHS, (Reported) Scheduled PRN Acetaminophen (Pain Reliever) 650 Mg Tablet.er, 650 MG PO Q8H PRN for PAIN, (Reported) Allergies Coded Allergies: No Known Allergies (Unverified , 12/27/17) GME ATTESTATION GME ATTESTATION My faculty preceptor for this patient encounter was physically present during the encounter and was fully available. All aspects of the patient interview, examination, medical decision making process, and medical care plan development were reviewed and approved by the faculty preceptor. The faculty preceptor is aware and concurs with the plan as stated in the body of this note and will att est to such by his/her cosignature. ATTENDING NOTE I, Mala Villarreal, have independently examined this patient and performed my own physical exam, as well as reviewed the documentation and edited where necessary. I have discussed in detail with the resident / student the findings and plan of treatment as documented by the resident / student and edited their note. I agree with their findings and treatment plan and have edited their documentation. I will continue to follow the patient during this hospital stay. DUSTIN DORAN DO May 01, 2020 06:16 Mala Villarreal MD May 03, 2020 01:00
[2020-05-01 06:30] VITALS: BP 117/61
[2020-05-01] MEDS ORDERED: METOPROLOL TART 12.5 MG PER 1/2 TAB PO SCH (09:00)
[2020-05-01] MEDS ORDERED: LEVEMIR (INSULIN DETEMIR) 1 UNITS/0.01ML SC SCH (09:00)
--- NOTE | 2020-05-01 22:31 | CR ---
DATE OF CONSULTATION: 04/29/2020 REASON FOR CONSULTATION: Right foot ulceration and infection. Colby Ramirez is a 74-year-old male well known to me due to recent infections of his 2nd and 3rd toe resulting in amputations. He had wound dehiscence following the 3rd toe amputation and had an ulceration. Over the last week, he developed worsening infections which did not improve with amoxicillin. He had previously been on Levaquin. He was brought to the emergency room (ER) for further treatment. PAST MEDICAL HISTORY: Significant for hypertension, peripheral vascular disease (PVD) status post angioplasty, diabetes, chronic kidney disease. PAST SURGICAL HISTORY: Tonsillectomy, adenoidectomy, ureteral stents, disc fusion, right 2nd and 3rd toe amputation. ALLERGIES: None. REVIEW OF SYSTEMS: Negative for nausea, vomiting, fever, chills. FAMILY HISTORY: Heart disease. SOCIAL HISTORY: He denies smoking and former alcohol use. Vital signs are examined. He has remained afebrile since admission. Labs are reviewed. White blood cell count was 12.9 on admission, it is down to 10.7. Cultures are pending. Foot x-ray shows no soft tissue gas or obvious signs of osteomyelitis. LOWER EXTREMITY EXAMINATION: There is erythema and edema to the right foot stemming from the 3rd toe amputation site. There is purulent drainage within this wound. ASSESSMENT: 74-year-old diabetic male with right foot cellulitis, abscess, possible osteomyelitis. PLAN: Patient unfortunately unable to have MRI due to ureteral stent or CT with contrast due to acute kidney injury. Will bring him to the operating room for incision and drainage, most likely removal of the 3rd metatarsal bone. This is to be performed today. He is nothing by mouth. [facility]
--- NOTE | 2020-05-02 12:30 | IPN ---
DATE: 04/30/2020 SUBJECTIVE: Patient seen and examined. He denies overnight complaints, states no pain in his foot. Vitals are reviewed. He has remained afebrile. LABORATORY DATA: Labs are reviewed. White blood cell count has improved to 8.5. His CRP today is 13.6. Wound cultures are pending and pathology is pending. PHYSICAL EXAMINATION: EXTREMITIES: Lower extremity examination, erythema and edema are reduced and the wound is well coapted. ASSESSMENT: A 74-year-old male with cellulitis and possible osteomyelitis, status post right third metatarsal head amputation and irrigation and drainage. PLAN: 1. Patient to be switched to Levaquin. 2. Await final culture results. 3. Start daily dressing changes. 4. He can participate with therapy. ANDREIA
--- NOTE | 2020-05-05 12:04 | ECGEPIP ---
[facility] Test Date: 2020-04-30 Pat Name: JOHN JARA Department: Room: H9496-88 Gender: Male Dining Room Maid: : 1945 Requested By: DUSTIN DORAN Order Number: [id number] Reading MD: Pacheco Andersen Measurements Intervals [place] Rate: 91 P: 35 RI: 169 QRS: 38 QRSD: 93 T: 40 QT: 357 QTc: 441 Interpretive Statements SINUS RHYTHM [address] DEPRESSION, CONSIDER SUBENDOCARDIAL INJURY LA CONDUCTION DEFECT CLINICAL CORRELATION ADVISED SEE SCANNED DOWNTIME RECORD
--- NOTE | 2020-05-12 11:45 | ECGEPIP ---
[facility] Test Date: 2020-05-01 Pat Name: JOHN JARA Department: Room: [place] [address] Gender: Male [employer]: NINOSKA : [id number] Requested By: DUSTIN DORAN Order Number: [id number] Reading MD: Pacheco Andersen Measurements Intervals [place] Rate: 83 P: 33 MS: 168 QRS: 20 QRSD: 82 T: 33 QT: 373 QTc: 439 Interpretive Statements SINUS RHYTHM NONSPECIFIC ST & T-WAVE ABNORMALITY NO SIGNIFICANT CHANGE FROM 04/30/20 23:12 SEE SCANNED DOWNTIME REPORT.
--- NOTE | 2020-05-12 11:58 | RO ---
DATE OF OPERATION: 04/29/2020 SURGEON: Osiel Mariano DPM BREAK OUT WORKER: None. PREOPERATIVE DIAGNOSIS: Right foot infection, possible osteomyelitis. POSTOPERATIVE DIAGNOSIS: Right foot infection, possible osteomyelitis. PROCEDURE: Right foot 3rd metatarsal head excision. ANESTHESIA: Monitored anesthesia care, preop injection of 10 mL of 1:1 mix 1% Lidocaine and 0.5% Marcaine plain. ESTIMATED BLOOD LOSS: Minimal. MATERIALS: 3-0 nylon. SPECIMENS: Right 3rd metatarsal bone. INDICATIONS: Colby Ramirez is a 74-year-old male who was admitted due to right foot infection. He has had previous amputations of his 2nd and 3rd toes. He had a wound dehiscence with eventual infection. He presents today for surgical correction. The patients side and site were identified and marked in the preoperative holding area. Consent was reviewed and obtained. All risks, complications and alternatives to the procedure were explained to the patient in detail and all questions were answered. DESCRIPTION OF PROCEDURE: The patient was brought to the operating room and placed on the operating table in the supine position. Monitored anesthesia care was delivered by the anesthesia team and preoperative injection of 10 mL of 1:1 mix of 1% Lidocaine plain and 0.5% Marcaine plain was injected in the right foot. The right foot was prepped and draped in normal sterile fashion. A tourniquet was applied but was not used during the procedure. Wound was noted at the previous 3rd toe amputation site. Incision was made extending distally and proximally. Some necrotic tissue was identified and removed using #15 blade. The 3rd metatarsal head was identified, soft tissue attachments were freed with McGlamry elevator and the bone was excised using sagittal saw. This was sent for pathology. Site was irrigated with normal saline until no further necrotic or purulent tissue was identified. Following this the incision was closed using 3-0 nylon. The patient was brought to PACU with vital signs stable and neurovascular status intact. He will be partial weightbearing and be readmitted to the floor for continued antibiotics and monitoring. ANDREIA
--- NOTE | 2020-05-17 10:26 | RO ---
DATE OF OPERATION: 04/29/2020 SURGEON: Osiel Mariano DPM LINUX DEVELOPER: None. PREOPERATIVE DIAGNOSIS: Right foot infection, possible osteomyelitis. POSTOPERATIVE DIAGNOSIS: Right foot infection, possible osteomyelitis. PROCEDURE: Right foot 3rd metatarsal head excision. ANESTHESIA: Monitored anesthesia care, preop injection of 10 mL of 1:1 mix 1% Lidocaine and 0.5% Marcaine plain. ESTIMATED BLOOD LOSS: Minimal. MATERIALS: 3-0 nylon. SPECIMENS: Right 3rd metatarsal bone. INDICATIONS: Colby Ramirez is a 74-year-old male who was admitted due to right foot infection. He has had previous amputations of his 2nd and 3rd toes. He had a wound dehiscence with eventual infection. He presents today for surgical correction. The patients side and site were identified and marked in the preoperative holding area. Consent was reviewed and obtained. All risks, complications and alternatives to the procedure were explained to the patient in detail and all questions were answered. PROCEDURE: The patient was brought to the operating room and placed on the operating table in the supine position. Monitored anesthesia care was delivered by the anesthesia team and preoperative injection of 10 mL of 1:1 mix of 1% Lidocaine plain and 0.5% Marcaine plain was injected in the right foot. The right foot was prepped and draped in normal sterile fashion. A tourniquet was applied but was not used during the procedure. Wound was noted at the previous 3rd toe amputation site. Incision was made extending distally and proximally. Some necrotic tissue was identified and removed using #15 blade. The 3rd metatarsal head was identified, soft tissue attachments were freed with McGlamry elevator and the bone was excised using sagittal saw. This was sent for pathology. Site was irrigated with normal saline until no further necrotic or purulent tissue was identified. Following this the incision was closed using 3-0 nylon. The patient was brought to PACU with vital signs stable and neurovascular status intact. He will be partial weightbearing and be readmitted to the floor for continued antibiotics and monitoring. ANDREIA
--- NOTE | 2020-05-21 13:30 | RO ---
DATE OF OPERATION: 04/29/2020 SURGEON: Osiel Mariano DPM EDI DEVELOPER: None. PREOPERATIVE DIAGNOSIS: Right foot infection, possible osteomyelitis. POSTOPERATIVE DIAGNOSIS: Right foot infection, possible osteomyelitis. PROCEDURE: Right foot 3rd metatarsal head excision. ANESTHESIA: Monitored anesthesia care, preop injection of 10 mL of 1:1 mix 1% Lidocaine and 0.5% Marcaine plain. ESTIMATED BLOOD LOSS: Minimal. MATERIALS: 3-0 nylon. SPECIMENS: Right 3rd metatarsal bone. INDICATIONS: Colby Ramirez is a 74-year-old male who was admitted due to right foot infection. He has had previous amputations of his 2nd and 3rd toes. He had a wound dehiscence with eventual infection. He presents today for surgical correction. The patients side and site were identified and marked in the preoperative holding area. Consent was reviewed and obtained. All risks, complications and alternatives to the procedure were explained to the patient in detail and all questions were answered. PROCEDURE: The patient was brought to the operating room and placed on the operating table in the supine position. Monitored anesthesia care was delivered by the anesthesia team and preoperative injection of 10 mL of 1:1 mix of 1% Lidocaine plain and 0.5% Marcaine plain was injected in the right foot. The right foot was prepped and draped in normal sterile fashion. A tourniquet was applied but was not used during the procedure. Wound was noted at the previous 3 rd toe amputation site. Incision was made extending distally and proximally. Some necrotic tissue was identified and __ using #15 blade. The 3rd metatarsal head was identified, soft tissue attachments were freed with McGlamry elevator and the bone was excised using sagittal saw. This was sent for pathology. Site was irrigated with normal saline until no further necrotic or purulent tissue was identified. Following this the incision was closed using 3-0 nylon. The patient was brought to PACU with vital signs stable and neurovascular status intact. He will be partial weightbearing and be readmitted to the floor for continued antibiotics and monitoring. ANDREIA
--- NOTE | 2020-05-24 19:28 | ECGEPIP ---
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
== END 2020-05-01 07:50 | disposition short-term general hospital (02) | DRG 503 ==
LOC: M ED 12:07 → M ED INP 15:52 → ENRESERV 16:22 → M MSPAV 18:23 → M PCU 05-01 00:04 → M ICU 05-01 00:22
PROVIDERS: ADMIT Internal Medicine; ATTEND Internal Medicine
PROC: 0QBN0ZZ Excision of Right Metatarsal, Open Approach (ICD-10-PCS; principal; 2020-04-29 16:00)
DX: T87.43 Infection of amputation stump, right lower extremity (principal); J96.01 Acute respiratory failure with hypoxia; J96.02 Acute respiratory failure with hypercapnia; I21.4 Non-ST elevation (NSTEMI) myocardial infarction; I16.1 Hypertensive emergency; E87.2 Acidosis; N17.9 Acute kidney failure, unspecified; M86.9 Osteomyelitis, unspecified; E83.39 Other disorders of phosphorus metabolism; E11.40 Type 2 diabetes mellitus with diabetic neuropathy, unspecified; E83.42 Hypomagnesemia; E11.22 Type 2 diabetes mellitus with diabetic chronic kidney disease; N18.3 Chronic kidney disease, stage 3 (moderate); E11.69 Type 2 diabetes mellitus with other specified complication; D64.9 Anemia, unspecified; E11.51 Type 2 diabetes mellitus with diabetic peripheral angiopathy without gangrene; E78.5 Hyperlipidemia, unspecified; N40.0 Benign prostatic hyperplasia without lower urinary tract symptoms; F03.90 Unspecified dementia, unspecified severity, without behavioral disturbance, psychotic disturbance, mood disturbance, and anxiety; E11.621 Type 2 diabetes mellitus with foot ulcer; Z98.1 Arthrodesis status; L97.511 Non-pressure chronic ulcer of other part of right foot limited to breakdown of skin; E87.5 Hyperkalemia; K21.9 Gastro-esophageal reflux disease without esophagitis; Z79.02 Long term (current) use of antithrombotics/antiplatelets; Z89.421 Acquired absence of other right toe(s); Z79.899 Other long term (current) drug therapy; Z79.4 Long term (current) use of insulin; Z96.0 Presence of urogenital implants; Z95.820 Peripheral vascular angioplasty status with implants and grafts

== ENCOUNTER 2020-07-04 13:07 | Inpatient (IN) | payer MEDICARE, OTHER ==
[~2020-07-04] VITALS: Ht 160 cm; Wt 85.8 kg
[~2020-07-04 13:07] MED LIST changes: +ACET650T3 PO; +ALTA1CAP2 PO; +AMOX500T2 PO; +BACITAB PO; +DONE10TA90 PO; +FAMO20TA PO; +MAGNESIUM PO; +NOVOINJ3 SC; +ZINC PO
[2020-07-04] MEDS ORDERED: VANCOMYCIN HCL 1,500 MG in D5W 250 ML IV ONE (14:30)
[2020-07-04 15:08] LABS: BASO # 0.1 10^3/uL (0.0-0.2); BASO % 0.7 % (0.0-1.0); EOS # 0.3 10^3/uL (0.0-0.5); EOS % 3.4 % (0.0-3.0); HEMATOCRIT 30.2 % (42.0-52.0); HEMOGLOBIN 9.7 g/dl (13.5-17.5); LYMPH # 1.6 10^3/uL (1.5-5.0); LYMPH % 21.1 % (24.0-44.0); MEAN CORPUSCULAR HGB CONC 32.1 g/dl (32.0-36.5); MEAN CORPUSCULAR VOLUME 90.4 fl (80.0-96.0); MONO # 0.6 10^3/uL (0.0-0.8); MONO % 8.4 % (0.0-5.0); NEUTROPHILS # 4.9 10^3/uL (1.5-8.5); NEUTROPHILS % 66.1 % (36.0-66.0); PLATELET COUNT, AUTOMATED 200 10^3/uL (150-450); RED BLOOD COUNT 3.34 10^6/uL (4.30-6.10); WHITE BLOOD COUNT 7.4 10^3/uL (4.0-10.0)
[2020-07-04 15:23] LABS: C REACTIVE PROTEIN QUANTITATIV 2.8 MG/DL (0.00-0.30); CALCIUM LEVEL 8.5 MG/DL (8.8-10.2); CREATININE FOR GFR 1.96 MG/DL (0.70-1.30); GLOMERULAR FILTRATION RATE 35.8 (>42); POTASSIUM SERUM 4.9 MEQ/L (3.5-5.1)
[2020-07-04 16:02] LABS: ERYTHROCYTE SEDIMENTATION RATE 60 mm/hr (0-20)
[2020-07-04] MEDS ORDERED: NS 500 ML IV ONE (16:30)
[2020-07-04] MEDS ORDERED: VANCOMYCIN HCL 750 MG, VIAL MATE ADAPTER 1 EACH in D5W 250 ML IV ONE ×6 (17:00)
[2020-07-04] MEDS ORDERED: DEXTROSE 50% 50 ML SYRINGE IV PRN (17:30)
[2020-07-04] MEDS ORDERED: GLUCOSE 4GM CHEW TABLET PO PRN (17:30)
[2020-07-04] MEDS ORDERED: GLUCAGON INJ 1MG VIAL SC PRN (17:30)
--- NOTE | 2020-07-04 17:35 | HPEPDOC ---
General Date of Admission 07/04/20 Date of Service: Jul 04, 2020 Chief Complaint The patient is a 75-year-old male admitted with a reason for visit of Infection Rt Foot. 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 He was instructed to come to the ED for admission for IV antibiotics. He however did not come then as it was his birthday but came to the ED today. He complains of some dull aching pain in the right foot constant about 3/10 in intensity with no radiation. He was admitted for Right first toe Osteomyelitis. Dr Mariano has been contacted. MRI 06/30/20: OM of the first metatarsal and the first proximal phalanx with joint effusion involving the first MTP joint. Home Medications Scheduled Aspirin (Aspirin EC) 81 Mg Tablet.dr, 81 MG PO DAILY, (Reported) Atorvastatin Calcium (Atorvastatin Calcium) 40 Mg Tablet, 40 MG PO DAILY, (Reported) Bifidobacterium Infantis (Align) 4 Mg Capsule, 4 MG PO DAILY, (Reported) Calcium Carbonate/Vitamin D3 (Calcium 600 + Vit D 400 Softgl) 1 Each Capsule, 1 CAP PO BID, (Reported) Cholecalciferol (Vitamin D3) (Vitamin D3) 50 Mcg Tablet, 50 MCG PO BID, (Reported) Cinnamon Bark/Chromium Picolin (Cinnamon Plus Chromium Capsule) 1 Each Capsule, 1 CAP PO BID, (Reported) Clopidogrel Bisulfate (Clopidogrel) 75 Mg Tab, 75 MG PO DAILY, (Reported) Donepezil HCl (Donepezil HCl) 10 Mg Tablet, 10 MG PO BID, (Reported) Famotidine (Famotidine) 20 Mg Tablet, 20 MG PO DAILY, (Reported) Ferrous Sulfate (Ferrous Sulfate) 325 Mg Tab, 325 MG PO BID, (Reported) Finasteride (Finasteride) 5 Mg Tab, 5 MG PO QHS, (Reported) Folic Acid (Folic Acid) 1 Mg Tablet, 1 MG PO DAILY, (Reported) Furosemide (Furosemide) 40 Mg Tablet, 40 MG PO DAILY, (Reported) Gabapentin (Gabapentin) 600 Mg Tablet, 600 MG PO BID, (Reported) Hydralazine HCl (Hydralazine HCl) 25 Mg Tablet, 25 MG PO BID, (Reported) Insulin Aspart (Novolog Flexpen) 100 Unit/1 Ml Insuln.pen, 1 DOSE SC AC, (Reported) PER SLIDING SCALE Iron (Iron) 18 Mg Tablet, 90 MG PO DAILY, (Reported) Lutein (Lutein) 20 Mg Tablet, 20 MG PO DAILY, (Reported) Metoprolol Tartrate (Metoprolol Tartrate) 25 Mg Tablet, 25 MG PO BID, (Reported) Milk Thistle Seed Extract (Milk Thistle) 200 Mg Capsule, 200 MG PO BID, (Reported) Multivitamin (Multi-Vitamin Daily) 1 Tab Tab, 1 TAB PO DAILY, (Reported) Ramipril (Altace) 2.5 Mg Capsule, 2.5 MG PO QHS, (Reported) Scheduled PRN Acetaminophen (Pain Reliever) 650 Mg Tablet.er, 650 MG PO Q8H PRN for PAIN, (Reported) Allergies Coded Allergies: No Known Allergies (Unverified , 12/27/17) Past Medical History Medical History CAD s/p CABG in apr 2020 HTN, PVD s/p L leg angioplasty (2017 w/ Dr. Bazzi, [address] Castellano), IDDM2, DLP, CKD3, Hx of multiple diabetic foot ulcers and R foot 2nd toe amputation (02/08) and 3rd toe amputation(03/10) and third metatarsal head amputation (04/29) Surgical History CABG in apr 2020 Tonsillectomy / Adenoidectomy Bilateral ureteral stents (2014) Disk fusion of neck (2005) R 2nd and 3rd digit of foot amputation Right Third metatarsal head amputation Family History Significant Family History: Heart disease Social History * Smoker: Denies Alcohol: Denies Drugs: denies A-FIB/CHADSVASC A-FIB History Current/History of A-Fib/PAF?: No Review of Systems Constitutional: Denies: Chills, Fever, Night Sweats Eyes: Denies: Pain, Vision change ENT: Denies: Head Aches, Ear Pain, Dysphagia Skin: Denies: Rash, Lesions, Breakdown Pulmonary: Denies: Dyspnea, Cough Cardiovascular: Denies: Chest Pain, Palpitations, Orthopnea, Paroxysmal Noc. Dyspnea, Lt Headedness Gastrointestinal: Denies: Nausea, Vomiting, Abdominal Pain, Diarrhea Hematologic: Denies: Bruising, Bleeding Excessively Musculoskeletal: Reports: Joint Pain; Denies: Neck Pain, Back Pain, Muscle Pain, Spasms Physical Examination General Exam: Positive: Alert, Cooperative, No Acute Distress Eye Exam: Positive: PERRLA, Conjunctiva & lids normal, EOMI; Negative: Sclera icteric ENT Exam: Positive: Atraumatic, Mucous membr. moist/pink, Pharynx Normal Neck Exam: Positive: Supple; Negative: JVD, thyromegaly Chest Exam: Positive: Clear to auscultation, Normal air movement Heart Exam: Positive: Rate Normal, Regular Rhythm, Normal S1, Normal S2; Negative: Murmurs, Rubs Abdomen Exam: Positive: Normal bowel sounds, Soft; Negative: Tenderness, Hepatospenomegaly Extremity Exam: Positive: Other (right first toe swelling ); Negative: Clubbing, Cyanosis, Edema Skin Exam: Positive: Nl turgor and temperature; Negative: Breakdown, Lesion Neuro Exam: Positive: Normal Gait, Normal Speech, Cranial Nerves 3-12 NL, Reflexes 2+ Psych Exam: Positive: Mental status NL, Mood NL, Memory Intact, Oriented x 3 Vital Signs Vital Signs Date Time Temp Pulse Resp B/P (MAP) Pulse Ox O2 Delivery O2 Flow Rate FiO2 07/04/20 15:27 07/04/20 13:08 96.7 79 24 92 Room Air Laboratory Data Labs 24H Laboratory Tests 2 07/04/20 14:24: Immature Granulocyte % (Auto) 0.3, Neutrophils (%) (Auto) 66.1H, Lymphocytes (%) (Auto) 21.1L, Monocytes (%) (Auto) 8.4H, Eosinophils (%) (Auto) 3.4H, Basophils (%) (Auto) 0.7, Neutrophils # (Auto) 4.9, Lymphocytes # (Auto) 1.6, Monocytes # (Auto) 0.6, Eosinophils # (Auto) 0.3, Basophils # (Auto) 0.1, Nucleated Red Blood Cells % (auto) 0.0, Erythrocyte Sedimentation Rate 60H, Anion Gap 7L, Glom erular Filtration Rate 35.8L, Calcium Level 8.5L, C-Reactive Protein, Quantitative 2.80H 07/04/20 14:26: Lactic Acid Level 2.2*H 07/04/20 16:24: CBC/BMP Laboratory Tests 07/04/20 14:24 Microbiology Microbiology 07/04/20 Blood Culture, Received Pending 07/04/20 Blood Culture, Received Pending Assessment/Plan 75 year old male with CAD s/p CABG, diabetes, hypertension, PVD, 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 He was instructed to come to the ED for admission for IV antibiotics. He however did not come then as it was his birthday but came to the ED today. He complains of some dull aching pain in the right foot constant about 3/10 in intensity with no radiation. He was admitted for Right first toe Osteomyelitis. Dr Mariano has been contacted. MRI 06/30/20: OM of the first metatarsal and the first proximal phalanx with joint effusion involving the first MTP joint. Right proximal phalanx and first metatarsal OM will start on vancomycin Dr Mariano consulted CAD s/p CABG in apr 2020 ASA, plavix, metoprolol and statin DM with neuropathy Lispro as per sliding scale gabapentin Hypertension metoprolol, hydralazine PVD statin and ASA and plavix Multiple toe amputations of the right due to gangrene healed scars. Dementia on donepezil H/o CHF undetermined type, No echo in system will request from PMD. Lasix prn CAM IVF x 1 liter will hold Lasix. will have to be careful about hydration as history of CHF and fluid overload. BPH finasteride. CAD s/p CABG DM Hypertension, PVD, Multiple toe amputations of the right due to gangrene, Plan / VTE VTE Prophylaxis Ordered?: Yes CARMITA ENCARNACION MD Jul 04, 2020 16:45
[2020-07-04] MEDS ORDERED: ATOR40TA75 PO (17:37)
[2020-07-04] MEDS ORDERED: FOLI1TAB11 PO (17:37)
[2020-07-04] MEDS ORDERED: FURO40TA2 PO (17:37)
[2020-07-04] MEDS ORDERED: ASPI81TA26 PO (17:37)
[2020-07-04] MEDS ORDERED: ALIG4CAP PO (17:37)
[2020-07-04] MEDS ORDERED: GABA600T4 PO (17:37)
[2020-07-04] MEDS ORDERED: METO1TAB87 PO (17:37)
[2020-07-04] MEDS ORDERED: LUTE20TA2 PO (17:37)
[2020-07-04] MEDS ORDERED: IRON18TA PO (17:37)
[2020-07-04] MEDS: HumaLOG INSULIN (NovoLOG) PER UNIT SC SCH (19:21)
[2020-07-04] MEDS ORDERED: HumaLOG INSULIN (NovoLOG) PER UNIT SC SCH (21:00)
[2020-07-04 22:00] VITALS: BP 169/63
[2020-07-05] MEDS: FINASTERIDE 5 MG TAB PO SCH ×2 (00:41→20:51)
[2020-07-05] MEDS: **hydrALAZINE HCL** 25 MG TAB PO SCH ×2 (00:42→08:31)
[2020-07-05] MEDS: DONEPEZIL 5 MG TAB PO SCH ×2 (00:42→08:25)
[2020-07-05] MEDS: GABAPENTIN 300 MG CAP PO SCH ×3 (00:42→20:52)
[2020-07-05] MEDS: FERROUS SULFATE 325MG TAB PO SCH ×3 (00:42→20:51)
[2020-07-05] MEDS: METOPROLOL TART 25 MG TABLET PO SCH ×2 (00:43→08:30)
[2020-07-05 06:00] VITALS: BP 113/65
[2020-07-05] MEDS ORDERED: VANCOMYCIN HCL 1,000 MG, VIAL MATE ADAPTER 1 EACH in D5W 250 ML IV SCH (07:00)
[2020-07-05 07:07] LABS: BASO % 0.6 % (0.0-1.0); EOS # 0.3 10^3/uL (0.0-0.5); EOS % 3.9 % (0.0-3.0); HEMATOCRIT 30.7 % (42.0-52.0); HEMOGLOBIN 9.8 g/dl (13.5-17.5); LYMPH # 1.7 10^3/uL (1.5-5.0); MEAN CORPUSCULAR HEMOGLOBIN 28.7 pg (27.0-33.0); MEAN CORPUSCULAR HGB CONC 31.9 g/dl (32.0-36.5); MEAN CORPUSCULAR VOLUME 89.8 fl (80.0-96.0); MONO # 0.5 10^3/uL (0.0-0.8); MONO % 7.7 % (0.0-5.0); NEUTROPHILS # 4.4 10^3/uL (1.5-8.5); NEUTROPHILS % 63.5 % (36.0-66.0); PLATELET COUNT, AUTOMATED 201 10^3/uL (150-450); RED BLOOD COUNT 3.42 10^6/uL (4.30-6.10)
[2020-07-05 07:23] LABS: CALCIUM LEVEL 8.4 MG/DL (8.8-10.2); CREATININE FOR GFR 1.71 MG/DL (0.70-1.30); GLOMERULAR FILTRATION RATE 41.9 (>42); POTASSIUM SERUM 5.3 MEQ/L (3.5-5.1)
[2020-07-05] MEDS: HumaLOG INSULIN (NovoLOG) PER UNIT SC SCH ×3 (08:24→17:30)
[2020-07-05] MEDS: FAMOTIDINE 20 MG TAB PO SCH (08:25)
[2020-07-05] MEDS: FOLIC ACID 1 MG TAB PO SCH (08:25)
[2020-07-05] MEDS: ASPIRIN 81 MG ENTERIC TAB PO SCH (08:25)
[2020-07-05] MEDS: CLOPIDOGREL 75 MG TAB PO SCH (08:29)
[2020-07-05] MEDS: ATORVASTATIN 20 MG TAB PO SCH (08:29)
[2020-07-05] MEDS: FUROSEMIDE 40 MG TAB PO SCH (08:31)
--- NOTE | 2020-07-05 10:27 | IPNPDOC ---
Subjective Date Seen The patient was seen on 07/05/20. Subjective Chief Complaint/HPI No complaitns this morning. Some soreness int eh right toe but not bothering him much. No fever or chills, Pulse noted to be in 39 to 42 range. Will get an EKG. Objective Physical Examination General Exam: Positive: Alert, Cooperative, No Acute Distress Eye Exam: Positive: PERRLA, Conjunctiva & lids normal, EOMI; Negative: Sclera icteric ENT Exam: Positive: Atraumatic, Mucous membr. moist/pink, Pharynx Normal Neck Exam: Positive: Supple; Negative: JVD, thyromegaly Chest Exam: Positive: Clear to auscultation, Normal air movement Heart Exam: Positive: Rate Normal, Regular Rhythm, Normal S1, Normal S2; Negative: Murmurs, Rubs Abdomen Exam: Positive: Normal bowel sounds, Soft; Negative: Tenderness, Hepatospenomegaly Extremity Exam: Positive: Other (right first toe swelling ); Negative: Clubbing, Cyanosis, Edema Skin Exam: Positive: Nl turgor and temperature; Negative: Breakdown, Lesion Neuro Exam: Positive: Normal Gait, Normal Speech, Cranial Nerves 3-12 NL, Reflexes 2+ Psych Exam: Positive: Mental status NL, Mood NL, Memory Intact, Oriented x 3 Assessment /Plan Assessment 75 year old male with CAD s/p CABG, diabetes, hypertension, PVD, 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 He was instructed to come to the ED for admission for IV antibiotics. He however did not come then as it was his birthday but came to the ED today. He complains of some dull aching pain in the right foot constant about 3/10 in intensity with no radiation. He was admitted for Right first toe Osteomyelitis. Dr Mariano has been contacted. MRI 06/30/20: OM of the first metatarsal and the first proximal phalanx with joint effusion involving the first MTP joint. Right proximal phalanx and first metatarsal OM will start on vancomycin Dr Mariano consulted CAD s/p CABG in apr 2020 ASA, plavix, metoprolol and statin DM with neuropathy Lispro as per sliding scale gabapentin Hypertension metoprolol hydralazine was stopped at per daughter. 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 Bradycardia will get EKG will stop donepezil and hold metoprolol if Pulse < 50 Dementia on donepezil stopped due to bradycardia will check EKG for qtc. H/o CHF undetermined type, No echo in system will request from PMD. will continue lasix CAM received IVF yesterday creatinine a little better. May be mildly behind on the fluids. will hold Lasix. BPH finasteride. VS, I&O, 24H, Fishbone Vital Signs/I&O Vital Signs Date Time Temp Pulse Resp B/P (MAP) Pulse Ox O2 Delivery O2 Flow Rate FiO2 07/05/20 08:31 120/60 07/05/20 08:30 39 07/05/20 06:00 98.7 20 98 Room Air I&O- Last 24 Hours up to 6 AM 07/05/20 06:00 Intake Total 1315 ml Output Total 300 ml Balance 1015 ml Laboratory Data 24H LABS Laboratory Tests 2 07/04/20 14:24: Immature Granulocyte % (Auto) 0.3, Neutrophils (%) (Auto) 66.1H, Lymphocytes (%) (Auto) 21.1L, Monocytes (%) (Auto) 8.4H, Eosinophils (%) (Auto) 3.4H, Basophils (%) (Auto) 0.7, Neutrophils # (Auto) 4.9, Lymphocytes # (Auto) 1.6, Monocytes # (Auto) 0.6, Eosinophils # (Auto) 0.3, Basophils # (Auto) 0.1, Nucleated Red Blood Cells % (auto) 0.0, Erythrocyte Sedimentation Rate 60H, Anion Gap 7L, Glomerular Filtration Rate 35.8L, Calcium Level 8.5L, C-Reactive Protein, Quantitative 2.80H 07/04/20 14:26: Lactic Acid Level 2.2*H 07/04/20 16:24: Coronavirus (COVID-19)(PCR) NEGATIVE 07/04/20 19:11: Bedside Glucose (Misc Panel) 192H 07/04/20 19:15: Lactic Acid Followup at 4 Hours 2.1*H 07/04/20 20:19: Bedside Glucose (Misc Panel) 222H 07/05/20 06:06: Immature Granulocyte % (Auto) 0.3, Neutrophils (%) (Auto) 63.5, Lymphocytes (%) (Auto) 24.0, Monocytes (%) (Auto) 7.7H, Eosinophils (%) (Auto) 3.9H, Basophils (%) (Auto) 0.6, Neutrophils # (Auto) 4.4, Lymphocytes # (Auto) 1.7, Monocytes # (Auto) 0.5, Eosinophils # (Auto) 0.3, Basophils # (Auto) 0.0, Nucleated Red Blood Cells % (auto) 0.0, Anion Gap 9, Glomerular Filtration Rate 41.9L, Calcium Level 8.4L CBC/BMP Laboratory Tests 07/04/20 14:24 07/05/20 06:06 Microbiology Microbiology 07/04/20 Blood Culture, Received Pending 07/04/20 Blood Culture, Received Pending CARMITA ENCARNACION MD Jul 05, 2020 10:27
[2020-07-05] MEDS: PIPERACILLIN/TAZOBACTAM SOD 3.375 GM in D5W MINI-BAG PLUS 50 ML IV SCH ×2 (12:43→18:42)
[2020-07-05] MEDS ORDERED: ATROPINE SULF 1MG/10ML SYRINGE (J0461) IV PRN (13:45)
[2020-07-05 14:27] VITALS: BP 118/50
[2020-07-05 16:00] VITALS: BP 122/58
[2020-07-05 20:00] VITALS: BP 127/57
--- NOTE | 2020-07-05 23:49 | ECGEPIP ---
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
[2020-07-06] VITALS: BP 122/54
[2020-07-06] MEDS: PIPERACILLIN/TAZOBACTAM SOD 3.375 GM in D5W MINI-BAG PLUS 50 ML IV SCH ×4 (00:27→18:17)
[2020-07-06] MEDS: HumaLOG INSULIN (NovoLOG) PER UNIT SC SCH ×5 (00:27→21:07)
[2020-07-06 04:00] VITALS: BP 147/64
[2020-07-06 06:13] LABS: BASO % 0.5 % (0.0-1.0); EOS # 0.3 10^3/uL (0.0-0.5); EOS % 5.3 % (0.0-3.0); HEMATOCRIT 29.5 % (42.0-52.0); HEMOGLOBIN 9.4 g/dl (13.5-17.5); LYMPH # 0.8 10^3/uL (1.5-5.0); LYMPH % 15.1 % (24.0-44.0); MEAN CORPUSCULAR HEMOGLOBIN 28.7 pg (27.0-33.0); MEAN CORPUSCULAR HGB CONC 31.9 g/dl (32.0-36.5); MEAN CORPUSCULAR VOLUME 90.2 fl (80.0-96.0); MONO # 0.6 10^3/uL (0.0-0.8); MONO % 11.1 % (0.0-5.0); NEUTROPHILS # 3.7 10^3/uL (1.5-8.5); NEUTROPHILS % 67.6 % (36.0-66.0); PLATELET COUNT, AUTOMATED 168 10^3/uL (150-450); RED BLOOD COUNT 3.27 10^6/uL (4.30-6.10); WHITE BLOOD COUNT 5.5 10^3/uL (4.0-10.0)
[2020-07-06 06:43] LABS: CALCIUM LEVEL 8.4 MG/DL (8.8-10.2); CREATININE FOR GFR 1.79 MG/DL (0.70-1.30); GLOMERULAR FILTRATION RATE 39.7 (>42); POTASSIUM SERUM 4.3 MEQ/L (3.5-5.1); VANCOMYCIN LEVEL TROUGH 14.7 UG/ML (10.0-20.0)
[2020-07-06 08:00] VITALS: BP 131/62
[2020-07-06] MEDS ORDERED: NS 1,000 ML IV SCH (08:30)
--- NOTE | 2020-07-06 10:13 | IPNPDOC ---
Subjective Date Seen The patient was seen on 07/06/20. Subjective Chief Complaint/HPI No complaints today. Pulse in 40s. No fever or chills, blood cultures preliminary negative. Objective Physical Examination General Exam: Positive: Alert, Cooperative, No Acute Distress Eye Exam: Positive: PERRLA, Conjunctiva & lids normal, EOMI; Negative: Sclera icteric ENT Exam: Positive: Atraumatic, Mucous membr. moist/pink, Pharynx Normal Neck Exam: Positive: Supple; Negative: JVD, thyromegaly Chest Exam: Positive: Clear to auscultation, Normal air movement Heart Exam: Positive: Rate Normal, Regular Rhythm, Normal S1, Normal S2; Negative: Murmurs, Rubs Abdomen Exam: Positive: Normal bowel sounds, Soft; Negative: Tenderness, Hepatospenomegaly Extremity Exam: Positive: Other (right first toe swelling ); Negative: Clubbing, Cyanosis, Edema Skin Exam: Positive: Nl turgor and temperature; Negative: Breakdown, Lesion Neuro Exam: Positive: Normal Gait, Normal Speech, Cranial Nerves 3-12 NL, Reflexes 2+ Psych Exam: Positive: Mental status NL, Mood NL, Memory Intact, Oriented x 3 Assessment /Plan Assessment 75 year old male with CAD s/p CABG, diabetes, hypertension, PVD, 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 He was instructed to come to the ED for admission for IV antibiotics. He however did not come then as it was his birthday but came to the ED today. He complains of some dull aching pain in the right foot constant about 3/10 in intensity with no radiation. He was admitted for Right first toe Osteomyelitis. Dr Mariano has been contacted. MRI 06/30/20: OM of the first metatarsal and the first proximal phalanx with joint effusion involving the first MTP joint. High up complete AV block. Has not resolved after stopping the metoprolol and donepezil. Asymptomatic. Planned for pacemaker today Right proximal phalanx and first metatarsal OM on Zosyn Blood cultures negative. Dr Mariano consulted CAD s/p CABG in apr 2020 ASA, plavix, metoprolol and statin DM with neuropathy Lispro as per sliding scale gabapentin Hypertension BP controlled Not on any meds. 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 Dementia on donepezil stopped due to bradycardia qtc was prolonged to 510. H/o CHF undetermined type, No echo in system will request from PMD. Euvolemic. CAM continue IVF. May be mildly behind on the fluids. will hold Lasix. BPH Finasteride. Plan/VTE VTE Prophylaxis Ordered?: Yes VS, I&O, 24H, Fishbone Vital Signs/I&O Vital Signs Date Time Temp Pulse Resp B/P (MAP) Pulse Ox O2 Delivery O2 Flow Rate FiO2 07/06/20 08:00 98.7 45 17 131/62 (85) 94 Room Air I&O- Last 24 Hours up to 6 AM 07/06/20 06:00 Intake Total 300 ml Output Total 1075 ml Balance -775 ml Laboratory Data 24H LABS Laboratory Tests 2 07/05/20 11:09: Bedside Glucose (Misc Panel) 257H 07/05/20 17:49: Bedside Glucose (Misc Panel) 182H 07/06/20 00:12: Bedside Glucose (Misc Panel) 200H 07/06/20 05:54: Bedside Glucose (Misc Panel) 142H, Immature Granulocyte % (Auto) 0.4, Neutrophils (%) (Auto) 67.6H, Lymphocytes (%) (Auto) 15.1L, Monocytes (%) (Auto) 11.1H, Eosinophils (%) (Auto) 5.3H, Basophils (%) (Auto) 0.5, Neutrophils # (Auto) 3.7, Lymphocytes # (Auto) 0.8L, Monocytes # (Auto) 0.6, Eosinophils # (Auto) 0.3, Basophils # (Auto) 0.0, Nucleated Red Blood Cells % (auto) 0.0, Anion Gap 7L, Glomerular Filtration Rate 39.7L, Calcium Level 8.4L, Vancomycin Level Trough 14.7 CBC/BMP Laboratory Tests 07/06/20 05:54 Microbiology Microbiology 07/04/20 Blood Culture - Preliminary, Resulted No growth after 24 hours . All specim... 07/04/20 Blood Culture - Preliminary, Resulted No growth after 24 hours . All specim... CARMITA ENCARNACION MD Jul 06, 2020 10:12
[2020-07-06] MEDS ORDERED: MIDAZOLAM INJ 2MG/2ML VIAL (J2250 PER 1MG) As Ordered ONE (10:22)
[2020-07-06] MEDS ORDERED: fentaNYL 100 MCG/2 ML INJECTION (J3010) As Ordered ONE (10:22)
[2020-07-06] MEDS ORDERED: LIDOCAINE 2% 100MG/5ML SDV (FOR ANES.) As Ordered ONE (10:22)
[2020-07-06] MEDS ORDERED: propofoL 500 MG/50 ML VIAL As Ordered ONE (10:22)
--- NOTE | 2020-07-06 10:41 | CR ---
DATE OF CONSULTATION: 07/05/2020 Colby Ramirez is a 75-year-old male, well-known to me, who was admitted on Sunday for osteomyelitis. He had been seen by myself approximately 2 weeks ago, at which time the foot had been improving, the wound was nearly resolved. He saw his primary and noted worsening of his wound, had an MRI which showed osteomyelitis around the 1st metatarsal. He was to be admitted but delayed this as his birthday was over the weekend and he did not want to go to the hospital prior to this. PAST MEDICAL HISTORY: Significant for coronary artery disease, hypertension, peripheral vascular disease, diabetes, neuropathy, chronic kidney disease. SURGICAL HISTORY: Includes coronary artery bypass graft (CABG), tonsillectomy, adenoidectomy, ureteral stents, disc fusion, right 2nd and 3rd toe amputation, 3rd metatarsal head amputation. ALLERGIES: None. FAMILY HISTORY: For heart disease. REVIEW OF SYSTEMS: He denies nausea, vomiting, fever, or chills. LABORATORIES: Are reviewed. White blood cell count is 7.0, ESR 60, CRP on admission 2.8, lactic acid on admission 2.2. LOWER EXTREMITY EXAMINATION: There is erythema and edema of the right foot. Previous amputation sites are nearly fully healed. There is no wound in the area of the 1st metatarsal or hallux. ASSESSMENT: 75-year-old diabetic male with presumptive osteomyelitis. PLAN: Active cultures are not going to be able to be taken as there is no wound or fluid to culture, but previous cultures in the past have both grown Pseudomonas and Streptococcus, both of which were sensitive to Levaquin. Patient should have IV antibiotics for at least 3 days and then most likely he can be switched to oral Levaquin times 6 weeks. He should followup with me in office in 2 weeks. ANDREIA
[2020-07-06] MEDS ORDERED: BACITRACIN PWD 50,000 UNITS VIAL As Ordered ONE (11:00)
[2020-07-06] MEDS ORDERED: LIDOCAINE 1% SDV 30ML VIAL As Ordered ONE (11:00)
[2020-07-06] MEDS ORDERED: ceFAZolin 2 GM/D5W 50 ML IV BAG (J0690 PER 500MG) As Ordered ONE (11:48)
[2020-07-06] MEDS ORDERED: ONDANSETRON 4MG/2ML VIAL As Ordered ONE (12:44)
[2020-07-06] MEDS ORDERED: KETOROLAC 60MG 2ML VIAL As Ordered ONE (12:44)
[2020-07-06] MEDS ORDERED: ONDANSETRON 4MG/2ML VIAL IV PRN (13:15)
[2020-07-06] MEDS ORDERED: LR 1,000 ML IV SCH (13:15)
[2020-07-06] MEDS ORDERED: oxyCODONE 5MG TAB PO PRN (13:15)
[2020-07-06] MEDS ORDERED: fentaNYL 100 MCG/2 ML INJECTION (J3010) IV PRN (13:15)
--- NOTE | 2020-07-06 13:18 | REP ---
INDICATION: Post pacemaker implant. COMPARISON: 05/01/2020. TECHNIQUE: SINGLE PORTABLE AP VIEW OF THE CHEST WAS PERFORMED. FINDINGS: Left 2 lead pacemaker appears to be in good position. There is no pneumothorax. There is somewhat poor ventilation without evidence of acute infiltrate. Heart mediastinum appear somewhat magnified. Metallic plates and screws are seen along the cervical and thoracic spine. Sternal wires are present. IMPRESSION: Left 2 lead pacemaker appears in good position. No pneumothorax or infiltrate. <Electronically signed by Nate Alba > 07/06/20 [id number]
--- NOTE | 2020-07-06 13:51 | CR ---
DATE OF CONSULTATION: 07/05/2020 CONSULTATION REQUESTED BY: Dr. Reeves. INDICATION: Heart block. HISTORY OF PRESENT ILLNESS: Mr. Ramirez is a 75-year-old man with a history of coronary artery disease and peripheral vascular disease, who was instructed to come to the hospital because of infection of his right foot. He was admitted for antibiotic treatment. This morning, it was noted that he was bradycardic even though he was asymptomatic. A 12-lead electrocardiogram reveals complete heart block with narrow QRS complex and ventricular rate 39 beats per minute. Patient was completely asymptomatic. He was transferred to telemetry and has been monitored since. I reviewed the telemetry thoroughly and he predominantly has episodes of complete heart block even though there are occasional episodes of lesser degrees of AV block and ventricular rate is typically in the 40s. There were no long pauses and QRS complex remains narrow. At bedside, patient is sitting on his bed. He is in good spirits. He does not have any complaints. He denies any recent dizziness, syncope or near syncope. PAST MEDICAL HISTORY: 1. Coronary artery disease; history of CABG in April 2020. 2. Peripheral vascular disease; status post angioplasties in his left lower extremity in 2017 and 2019. 3. Hypertension. 4. Type 2 diabetes. 5. Dyslipidemia. 6. Chronic kidney disease stage 3. PAST SURGICAL HISTORY: Positive for: 1. CABG as above. 2. Tonsillectomy. 3. Bilateral ureteral stenting. 4. Fusion of the neck in 2005. 5. Amputations of second and third digits on the right foot and subsequently metatarsal head also on the right foot. FAMILY HISTORY: No longer relevant. SOCIAL HISTORY: Patient is a , lives with his . He denies smoking, denies alcohol. ALLERGIES: No known medication allergies. OUTPATIENT MEDICATIONS: 1. Aspirin 81 mg daily. 2. Lipitor 40 mg daily. 3. Calcium with Vitamin D. 4. Cinnamon Bark. 5. Plavix 75 mg daily. 6. Donepezil 10 mg twice a day. 7. Famotidine 20 mg daily. 8. Iron sulfate. 9. Finasteride 5 mg daily. 10. Folic acid. 11. Furosemide 40 mg daily. 12. Gabapentin 600 mg twice a day. 13. Hydralazine 25 mg twice a day. 14. Insulin sliding protocol. 15. Iron. 16. Supplement Lutein 20 mg daily. 17. Metoprolol 25 mg twice a day. 18. Milk Thistle 200 mg twice a day. 19. Multivitamin. 20. Ramipril 2.5 mg at night. REVIEW OF SYSTEMS: Patient denies any fever, chills, nausea or vomiting. He does have pain in his right foot, which is relatively mild. Again, he denies any dizziness, palpitations, syncope or near syncope. PHYSICAL EXAMINATION: GENERAL: Mr. Ramirez is an elderly man who appears to be in good spirits, in no distress. He is alert and oriented x3, appropriate. VITAL SIGNS: Last set of vital signs reveal blood pressure 122/58, heart rate has been mostly in 40s, afebrile, and saturation 94% on room air. Weight was recorded at 80 kg yesterday. NECK: I do not appreciate JVP elevation. There are faint bilateral bruit over carotid arteries. LUNGS: Reasonably clear to auscultation with good air movement. HEART: Reveals regular rhythm, is bradycardic. There is murmur over the aortic valve about 2/6 intensity. I do not appreciate any gallop, rub or murmur. ABDOMEN: Soft, nontender. No hepatosplenomegaly is detected. EXTREMITIES: Free of edema. I did not inspect his right foot, it is bandaged. Peripheral pulses are difficult to palpate. NEUROLOGIC: He appears intact. LABORATORY DATA: Basic metabolic panel reveals sodium 137, potassium 5.3, BUN 49, creatinine 1.74. GFR 42, glucose 163. Lactic acid 2.2 and then 2.1. Calcium 8.4. CBC revealed WBC 7, hemoglobin 9, hematocrit 30.7, platelet count 201,000. ESR yesterday 60. IMAGING STUDIES: EKG as per history of present illness. No chest x-ray was obtained. ASSESSMENT AND PLAN: Mr. Ramirez is a 75-year-old man, who presents with infected foot and somewhat coincidentally is found to have complete heart block. He is asymptomatic from that perspective and his ventricular rate is around 40 beats per minute without any pauses and no QRS complex. Donepezil and Metoprolol could be the offending agents even though this presentation is highly suggestive of underlying conduction system disease. He was seen by my partner, Dr. Jorge, on 06/08/2020, at which point he had first degree AV block only. At this point, he is being monitored on telemetry. Defibrillator patches were applied to his chest and he will be monitored closely. I do believe that patient is a candidate for pacemaker placement even if there is a resolution of AV block. Unfortunately, the concomitant osteomyelitis complicates the situation and we have to be reasonably confident that he does not have systemic infection before a pacemaker can be placed. I already spoke with Dr. Andersen about this issue and he recommends to monitor patient at least 48 hours before proceeding with placement of the device. I do not believe that patient necessarily requires placement of temporary pacemaker because of narrow QRS complex and asymptomatic status. Defibrillator patches are applied. Obviously his beta-mery and Donepezil were discontinued. I am hoping that there will be gradual recovery, but even if there is not, then we will have to proceed with pacemaker placement regardless of underlying possible infection. My plan will be to reevaluate him on a daily basis. I explained to him that if by any chance he has some extreme bradycardia, then we will have to place temporary pacemaker and he understands the implications and would agree to proceed. As far as the remaining issues of concern, they seem to be stable. He certainly does not have any ischemic symptoms. His blood pressure is well controlled and renal function is actually, compared to yesterday, slightly improved. His JEAN-CLAUDE inhibitor obviously was discontinued. I will continue him on antiplatelet medications and a statin. ANDREIA
--- NOTE | 2020-07-06 13:53 | IPN ---
DATE: 07/06/2020 Mr. Ramirez had an uneventful night. He was able to sleep without difficulty. Denies any chest pain, dyspnea or dizziness. On telemetry, he remains principally in complete heart block with narrow QRS complex and ventricular rate typically around 40 beats per minute. He occasionally dips into high 30s but also occasionally has episodes of only high-degree atrioventricular (AV) block and ventricular rate at some point reached even into the 70s even though that was a very small minority of time. There were no long pauses. VITAL SIGNS: Blood pressure 147/64, heart rate as above. He is afebrile. Saturation 98% on room air. His fluid balance yesterday was approximately equal. Weight was recorded at 83 kg. He is alert, oriented and appropriate lying completely flat in bed. Lungs are reasonably clear. I do not appreciate any crackles or wheezing. Heart exam reveals bradycardic rate with murmur over the aortic valve. I am not appreciative of his apical murmur today. Abdomen is soft, nontender. Extremities do not have any edema, and neurologically he is intact. LABORATORIES: His basic metabolic panel: Sodium 139, potassium 4.3, BUN 52, creatinine 1.79 for GFR 40, and glucose 152. CBC: WBC count 5.5, hemoglobin 9.4, hematocrit 29, platelet count 168,000. His blood cultures have been negative after 24 hours. We should get a report after 48 hours soon. ASSESSMENT AND PLAN: Mr. Ramirez is a 75-year-old man who had a recent bypass surgery a little more than two months ago who presented with infected foot with likely having osteomyelitis and somewhat coincidentally was found to have a complete heart block with narrow QRS complex and ventricular escape rate around 40 beats per minute. He remains essentially asymptomatic. His beta blocks and donepezil have been on hold now for close to 48 hours without substantial improvement. The decision was not to proceed directly with pacemaker placement due to concern about bacteremia and potential risk of seeding the pacemaker with infection but so far the blood cultures remain negative and he has been on antibiotics close to 48 hours. I will approach Dr. Andersen again today. Hopefully, we will be able to proceed later tonight. If not, we will wait one more day and tentatively proceed with pacemaker placement tomorrow. I explained this to the patient who understands and is in agreement. ANDREIA
[2020-07-06 13:56] VITALS: BP 160/68
[2020-07-06] MEDS: FERROUS SULFATE 325MG TAB PO SCH ×2 (14:03→21:06)
[2020-07-06] MEDS: ASPIRIN 81 MG ENTERIC TAB PO SCH (14:03)
[2020-07-06] MEDS: GABAPENTIN 300 MG CAP PO SCH ×2 (14:03→21:06)
[2020-07-06] MEDS: FAMOTIDINE 20 MG TAB PO SCH (14:03)
[2020-07-06] MEDS: CLOPIDOGREL 75 MG TAB PO SCH (14:03)
[2020-07-06] MEDS: ATORVASTATIN 20 MG TAB PO SCH (14:03)
[2020-07-06] MEDS: FOLIC ACID 1 MG TAB PO SCH (14:03)
[2020-07-06 16:00] VITALS: BP_SYST 128; BP_SYST 135; BP_DIAS 60; BP_DIAS 87
[2020-07-06 20:00] VITALS: BP 131/63
[2020-07-06] MEDS: FINASTERIDE 5 MG TAB PO SCH (21:06)
[2020-07-06] MEDS ORDERED: ACETAMINOPHEN TAB 650MG DOSE (2X325MG) PO ONE (21:15)
[2020-07-07] VITALS: BP 122/78
[2020-07-07] MEDS: PIPERACILLIN/TAZOBACTAM SOD 3.375 GM in D5W MINI-BAG PLUS 50 ML IV SCH ×5 (01:00→23:50)
[2020-07-07 04:00] VITALS: BP 164/96
[2020-07-07 06:08] LABS: BASO % 0.5 % (0.0-1.0); EOS # 0.3 10^3/uL (0.0-0.5); EOS % 4.9 % (0.0-3.0); HEMATOCRIT 28.4 % (42.0-52.0); HEMOGLOBIN 9.3 g/dl (13.5-17.5); LYMPH % 15.4 % (24.0-44.0); MEAN CORPUSCULAR HEMOGLOBIN 29.7 pg (27.0-33.0); MEAN CORPUSCULAR HGB CONC 32.7 g/dl (32.0-36.5); MEAN CORPUSCULAR VOLUME 90.7 fl (80.0-96.0); MONO # 0.6 10^3/uL (0.0-0.8); MONO % 8.8 % (0.0-5.0); NEUTROPHILS # 4.5 10^3/uL (1.5-8.5); NEUTROPHILS % 70.1 % (36.0-66.0); PLATELET COUNT, AUTOMATED 192 10^3/uL (150-450); RED BLOOD COUNT 3.13 10^6/uL (4.30-6.10); WHITE BLOOD COUNT 6.4 10^3/uL (4.0-10.0)
[2020-07-07 06:38] LABS: CALCIUM LEVEL 8.6 MG/DL (8.8-10.2); CREATININE FOR GFR 1.7 MG/DL (0.70-1.30); GLOMERULAR FILTRATION RATE 42.2 (>42); POTASSIUM SERUM 4.7 MEQ/L (3.5-5.1)
[2020-07-07 07:51] VITALS: BP 180/77
[2020-07-07] MEDS: FAMOTIDINE 20 MG TAB PO SCH (08:30)
[2020-07-07] MEDS: HumaLOG INSULIN (NovoLOG) PER UNIT SC SCH ×4 (08:30→20:07)
[2020-07-07] MEDS: GABAPENTIN 300 MG CAP PO SCH ×2 (08:30→20:08)
[2020-07-07] MEDS: FOLIC ACID 1 MG TAB PO SCH (08:31)
[2020-07-07] MEDS: METOPROLOL TART 25 MG TABLET PO SCH ×2 (08:31→20:09)
[2020-07-07] MEDS: ASPIRIN 81 MG ENTERIC TAB PO SCH (08:31)
[2020-07-07] MEDS: CLOPIDOGREL 75 MG TAB PO SCH (08:31)
[2020-07-07] MEDS: ATORVASTATIN 20 MG TAB PO SCH (08:31)
[2020-07-07] MEDS: FERROUS SULFATE 325MG TAB PO SCH ×2 (08:31→20:08)
--- NOTE | 2020-07-07 09:50 | IPNPDOC ---
Subjective Date Seen The patient was seen on 07/07/20. Subjective Chief Complaint/HPI Feeling better, no complaints this morning. No fever or chills. Looks like Patient has gained quite a bit of weight anis over 2 liters in positive balance. Objective Physical Examination General Exam: Positive: Alert, Cooperative, No Acute Distress Eye Exam: Positive: PERRLA, Conjunctiva & lids normal, EOMI; Negative: Sclera icteric ENT Exam: Positive: Atraumatic, Mucous membr. moist/pink, Pharynx Normal Neck Exam: Positive: Supple; Negative: JVD, thyromegaly Chest Exam: Positive: Clear to auscultation, Normal air movement Heart Exam: Positive: Rate Normal, Regular Rhythm, Normal S1, Normal S2; Negative: Murmurs, Rubs Abdomen Exam: Positive: Normal bowel sounds, Soft; Negative: Tenderness, Hepatospenomegaly Extremity Exam: Positive: Other (right first toe swelling ); Negative: Clubbing, Cyanosis, Edema Skin Exam: Positive: Nl turgor and temperature; Negative: Breakdown, Lesion Neuro Exam: Positive: Normal Gait, Normal Speech, Cranial Nerves 3-12 NL, Reflexes 2+ Psych Exam: Positive: Mental status NL, Mood NL, Memory Intact, Oriented x 3 Assessment /Plan Assessment 75 year old male with CAD s/p CABG, diabetes, hypertension, PVD, 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 He was instructed to come to the ED for admission for IV antibiotics. He however did not come then as it was his birthday but came to the ED today. He complains of some dull aching pain in the right foot constant about 3/10 in intensity with no radiation. He was admitted for Right first toe Osteomyelitis. Dr Mariano has been contacted. MRI 06/30/20: OM of the first metatarsal and the first proximal phalanx with joint effusion involving the first MTP joint. High up complete AV block. s/p Pacemaker on 07/06/20 Right proximal phalanx and first metatarsal OM on Zosyn Blood cultures negative. Dr Mariano consulted CAD s/p CABG in apr 2020 ASA, plavix, metoprolol and statin DM with neuropathy Lispro as per sliding scale gabapentin Hypertension restarted metoprolol, continue lasix. 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 Dementia on donepezil stopped due to bradycardia qtc was prolonged to 510. H/o CHF undetermined type, No echo in system will request from PMD. in positive balance will give 1 dose of IV lasix. CAM creatinine slightly better. BPH Finasteride. Plan/VTE VTE Prophylaxis Ordered?: Yes VS, I&O, 24H, Fishbone Vital Signs/I&O Vital Signs Date Time Temp Pulse Resp B/P (MAP) Pulse Ox O2 Delivery O2 Flow Rate FiO2 07/07/20 08:31 62 180/77 07/07/20 07:51 98.4 18 94 Room Air 07/06/20 13:30 3 I&O- Last 24 Hours up to 6 AM 07/07/20 06:00 Intake Total 2050 ml Output Total 1050 ml Balance 1000 ml Laboratory Data 24H LABS Laboratory Tests 2 07/06/20 13:16: Bedside Glucose (Misc Panel) 149H 07/06/20 13:44: Bedside Glucose (Misc Panel) 154H 07/06/20 20:56: Bedside Glucose (Misc Panel) 271H 07/07/20 05:40: Immature Granulocyte % (Auto) 0.3, Neutrophils (%) (Auto) 70.1H, Lymphocytes (%) (Auto) 15.4L, Monocytes (%) (Auto) 8.8H, Eosinophils (%) (Auto) 4.9H, Basophils (%) (Auto) 0.5, Neutrophils # (Auto) 4.5, Lymphocytes # (Auto) 1.0L, Monocytes # (Auto) 0.6, Eosinophils # (Auto) 0.3, Basophils # (Auto) 0.0, Nucleated Red Blood Cells % (auto) 0.0, Anion Gap 5L, Glomerular Filtration Rate 42.2, Calcium Level 8.6L CBC/BMP Laboratory Tests 07/07/20 05:40 Microbiology Microbiology 07/04/20 Blood Culture - Preliminary, Resulted No Growth after 48 hours. All Specime... 07/04/20 Blood Culture - Preliminary, Resulted No Growth after 48 hours. All Specime... CARMITA ENCARNACION MD Jul 07, 2020 09:49
--- NOTE | 2020-07-07 10:06 | REP ---
INDICATION: Post pacemaker implant COMPARISON: 07/06/2020. TECHNIQUE: PA/Lateral FINDINGS: Lungs: Clear, no infiltrate. Heart: Normal in size. Mediastinum: Mediastinal silhouette unremarkable. Pleural angles: Unremarkable.. Bones and soft tissues: There are degenerative changes of the spine without compression deformity. Metallic hardware is again seen in the cervical and thoracic spine. There is a left 2 lead pacemaker with atrial and ventricular leads in good position. Sternal wires are present. IMPRESSION: No acute pulmonary disease. Left 2 lead pacemaker in good position <Electronically signed by Nate Alba > 07/07/20 1003
--- NOTE | 2020-07-07 10:21 | RO ---
DATE OF OPERATION: 07/06/2020 PREOPERATIVE DIAGNOSIS: Atrioventricular (AV) block. POSTOPERATIVE DIAGNOSIS: Atrioventricular (AV) block PROCEDURE: Implantation of permanent dual chamber pacemaker. IMPLANTING DIRECTOR OF ANCILLARY SERVICES: Pacheco Andersen MD ANESTHESIOLOGIST: Dr. Arredondo ANESTHESIA: Monitored local anesthesia. DESCRIPTION OF PROCEDURE: With the patient in the fasting state having signed informed consent and having received Ancef 2 gm IV premedication, he was taken to the operating theatre. Numerous skin electrodes were applied to facilitate continuos electrocardiographic monitoring. Self adhesive cardioverting/defibrillating/transthoracic pacing pads were applied in an anteroposterior configuration and connected to a bedside cardioverter defibrillator/noninvasive pacing system. The left subclavian region was prepped and draped in the usual fashion and the skin was infiltrated with 1% Xylocaine. The left axillary vein was catheterized using a micropuncture technique. A 5 cm linear incision was made several cm below and parallel to the left clavicle. Dissection was carried down to the level of the pectoralis fascia and a pocket was fashioned below the level of the incision line. Two bipolar screw-in active fixations, steroid-eluting pacing leads were then positioned to the distal right ventricular septum and the high right atrial appendage. We used a fluoroscopic and EKG control. The right ventricular lead ([employer], model #[id number], serial number [id number]) measurements were focal and stimulation threshold 0.5V/0.4 ms/impedence 648 ohms. The R wave amplitude measured 13.9 mV. The atrial lead ([employer] model #[id number]/52, serial number [id number]) measurements were focal and stimulation threshold 1.0V/0.4 ms/impedence 365 ohms. P wave amplitude measured 0.3 mV. These leads were secured and in position with a sleeve sutured at the insertion site. They were then connected to a permanent dual chamber pulse generator ([employer]), model #KI5320, serial number [id number]) and appropriate DDD pacing was documented. The pulse generator was placed and the pocket secured in position with a suture through the right upper-hand corner of the epoxy header. The subcutaneous tissues were approximated using a running chromic suture and the skin was closed using doron. A dry dressing was applied and the patient was returned to the recovery room good condition. No apparent complications. Estimated blood loss 10 ml. Postoperative portable upright chest x-ray confirms good lead position with no pneumothorax. Postoperative electrocardiogram (EKG) confirmed appropriate dual chamber pacer function with atrial sensing and tracking with consistent ventricular pacing. MTDD
--- NOTE | 2020-07-07 11:20 | IPN ---
DATE: 07/07/2020 SUBJECTIVE: Mr. Ramirez has undergone pacemaker placement by Dr. Andersen yesterday afternoon. The procedure as uneventful. He was able to sleep. Besides a little soreness over the incision site, he does not have another complaints. His vital signs remained stable throughout the night even though in the morning hours he is now quite hypertensive with current blood pressure 182 systolic. On the positive side, he also recovered AV conduction and throughout the night was mostly in sinus rhythm with spontaneous AV conduction and only intermittent pacing. PHYSICAL EXAMINATION: VITAL SIGNS: Saturation is 98% on room air. GENERAL APPEARANCE: He is otherwise alert and oriented, appropriate. Does not appear to be in any distress. LUNGS: Clear with good air movement. HEART: Unchanged. There is a dressing over the pacemaker insertion site. EXTREMITIES: Free of edema. LABORATORY DATA: Basic metabolic panel is unchanged. Sodium is 137, potassium is 4.7, BUN 44, creatinine 1.7, glucose 199. CBC: WBC is 6.4, hemoglobin 9, hematocrit 25 and platelet count 192,000. ASSESSMENT AND PLAN: Mr. Ramirez is a 75-year-old man who has established coronary artery disease with a history of CABG two months ago. He presented with osteomyelitis of his right foot and coincidentally was found to be in complete heart block that was relatively asymptomatic, had narrow QRS complex. He was on a relatively low dose beta mery and donepezil at baseline. The complete heart block persisted for at least 36 hours and consequently pacemaker was placed uneventfully. At this point, I am going to restart him on beta mery that are indicated due to underlying coronary artery disease. I will let Dr. Lewis know about the event that occurred during this hospitalization so he can follow-up on Mr. Ramirez in [place], otherwise I am going to sign off his care. Please call me back if any further assistance is desired. ANDREIA
[2020-07-07 12:00] VITALS: BP 159/71
[2020-07-07] MEDS ORDERED: FUROSEMIDE 40MG/4ML VIAL (J1940) IV ONE (12:00)
[2020-07-07] MEDS ORDERED: SLF 3 ML SYR IV PRN (15:30)
[2020-07-07 16:00] VITALS: BP 150/65
[2020-07-07 20:00] VITALS: BP 134/64
[2020-07-07] MEDS: FINASTERIDE 5 MG TAB PO SCH (20:08)
[2020-07-07] MEDS: SLF 3 ML SYR IV SCH (20:09)
[2020-07-08] VITALS: BP 132/57
[2020-07-08] MEDS ORDERED: ACETAMINOPHEN TAB 650MG DOSE (2X325MG) PO ONE (02:15)
[2020-07-08 04:00] VITALS: BP 142/66
[2020-07-08 05:52] LABS: BASO # 0.1 10^3/uL (0.0-0.2); BASO % 0.8 % (0.0-1.0); EOS # 0.3 10^3/uL (0.0-0.5); EOS % 5.3 % (0.0-3.0); HEMATOCRIT 28.7 % (42.0-52.0); MEAN CORPUSCULAR HEMOGLOBIN 28.5 pg (27.0-33.0); MEAN CORPUSCULAR HGB CONC 31.4 g/dl (32.0-36.5); MEAN CORPUSCULAR VOLUME 90.8 fl (80.0-96.0); MONO # 0.6 10^3/uL (0.0-0.8); MONO % 10.7 % (0.0-5.0); NEUTROPHILS # 3.9 10^3/uL (1.5-8.5); NEUTROPHILS % 65.7 % (36.0-66.0); PLATELET COUNT, AUTOMATED 197 10^3/uL (150-450); RED BLOOD COUNT 3.16 10^6/uL (4.30-6.10)
[2020-07-08 06:20] LABS: CALCIUM LEVEL 8.2 MG/DL (8.8-10.2); CREATININE FOR GFR 1.49 MG/DL (0.70-1.30); GLOMERULAR FILTRATION RATE 49.1 (>42); POTASSIUM SERUM 4.3 MEQ/L (3.5-5.1)
[2020-07-08] MEDS: PIPERACILLIN/TAZOBACTAM SOD 3.375 GM in D5W MINI-BAG PLUS 50 ML IV SCH ×2 (06:20→12:42)
[2020-07-08] MEDS: SLF 3 ML SYR IV SCH ×2 (06:20→12:42)
[2020-07-08 08:00] VITALS: BP 148/80
[2020-07-08] MEDS: HumaLOG INSULIN (NovoLOG) PER UNIT SC SCH ×2 (08:20→12:42)
[2020-07-08] MEDS: CLOPIDOGREL 75 MG TAB PO SCH (08:20)
[2020-07-08] MEDS: FAMOTIDINE 20 MG TAB PO SCH (08:21)
[2020-07-08] MEDS: FERROUS SULFATE 325MG TAB PO SCH (08:22)
[2020-07-08] MEDS: ASPIRIN 81 MG ENTERIC TAB PO SCH (08:22)
[2020-07-08] MEDS: GABAPENTIN 300 MG CAP PO SCH (08:22)
[2020-07-08] MEDS: FOLIC ACID 1 MG TAB PO SCH (08:22)
[2020-07-08] MEDS: ATORVASTATIN 20 MG TAB PO SCH (08:22)
[2020-07-08 08:53] VITALS: BP 148/80
[2020-07-08] MEDS: METOPROLOL TART 25 MG TABLET PO SCH (08:53)
[2020-07-08] MEDS: FUROSEMIDE 40 MG TAB PO SCH (11:03)
[2020-07-08 12:00] VITALS: BP 137/63
[2020-07-08] MEDS ORDERED: LEVO250T12 PO (12:51)
[2020-07-08] MEDS ORDERED: LevoFLOXacin 500 MG TABLET PO ONE (13:00)
--- NOTE | 2020-07-09 06:51 | DS.PDOC ---
Discharge Summary General Date of Admission Jul 04, 2020 at 17:17 Date of Discharge 07/08/20 Discharge Summary PROCEDURES PERFORMED DURING STAY: Dual chamber pacemaker placement on 07/06/20 DISCHARGE DIAGNOSES: Complete AV block s/p pacemakr Right proximal phalanx and first metatarsal OM CAM CAD s/p CABG in apr 2020 DM with neuropathy Hypertension CHF Dementia BPH PVD COMPLICATIONS/CHIEF COMPLAINT: Osteomyelitis. 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 He was instructed to come to the ED for admission for IV antibiotics. He however did not come then as it was his birthday but came to the ED today. He complains of some dull aching pain in the right foot constant about 3/10 in intensity with no radiation. He was admitted for Right first toe Osteomyelitis. Dr Mariano has been contacted. MRI 06/30/20: OM of the first metatarsal and the first proximal phalanx with joint effusion involving the first MTP joint. While in the hospital he was noted to to have bradycardias in 30s and 40s. EKG showed complete AV block. High up complete AV block. s/p Pacemaker on 07/06/20 Right proximal phalanx and first metatarsal OM Zosyn x 3 days then changed to Levofloxacin Blood cultures negative. Planned for 4 to 6 weeks of levofloxacin as discussed with [facility] follow up with [facility]. CAD s/p CABG in apr 2020 ASA, plavix, metoprolol and statin DM with neuropathy home meds gabapentin Hypertension restarted metoprolol, continue lasix. 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 Dementia donepezil continued. H/o CHF undetermined type, No echo in system continue lasix. CAM improving. BPH Finasteride. DISCHARGE MEDICATIONS: Please see below. ALLERGIES: Please see below. PHYSICAL EXAMINATION ON DISCHARGE: VITAL SIGNS: Please see below. General Exam: Positive: Alert, Cooperative, No Acute Distress Eye Exam: Positive: PERRLA, Conjunctiva & lids normal, EOMI; Negative: Sclera icteric ENT Exam: Positive: Atraumatic, Mucous membr. moist/pink, Pharynx Normal Neck Exam: Positive: Supple; Negative: JVD, thyromegaly Chest Exam: Positive: Clear to auscultation, Normal air movement Heart Exam: Positive: Rate Normal, Regular Rhythm, Normal S1, Normal S2; Negative: Murmurs, Rubs Abdomen Exam: Positive: Normal bowel sounds, Soft; Negative: Tenderness, Hepatospenomegaly Extremity Exam: Positive: Other (right first toe swelling ); Negative: Clubbing, Cyanosis, Edema Skin Exam: Positive: Nl turgor and temperature; Negative: Breakdown, Lesion Neuro Exam: Positive: Normal Gait, Normal Speech, Cranial Nerves 3-12 NL, Reflexes 2+ Psych Exam: Positive: Mental status NL, Mood NL, Memory Intact, Oriented x 3 LABORATORY DATA: Please see below. ACTIVITY: [As tolerated]. DIET: Carb consistent DISPOSITION: 01 Home, Self-Care. DISCHARGE INSTRUCTIONS: Dr Andersen Office in 1 week for Wound check and staple removal Dr Jorge in [address] Mariano in 1 to 2 weeks PMD in 2 to 3 weeks. DISCHARGE CONDITION: [Stable]. TIME SPENT ON DISCHARGE: 35 minutes. Vital Signs/I&Os Vital Signs Date Time Temp Pulse Resp B/P (MAP) Pulse Ox O2 Delivery O2 Flow Rate FiO2 07/08/20 12:00 97.4 60 17 137/63 (87) 97 Room Air 07/06/20 13:30 3 I&O- Last 24 Hours up to 6 AM 07/09/20 07:00 Intake Total 590 ml Output Total 700 ml Balance -110 ml Laboratory Data Labs 24H Laboratory Tests 2 07/08/20 12:31: Bedside Glucose (Misc Panel) 213H FSBS Laboratory Tests Test 07/08/20 12:31 Range/Units Bedside Glucose (Misc Panel) 213 83-110 MG/DL Microbiology Microbiology 07/04/20 Blood Culture - Preliminary, Resulted No Growth after 72 hours. All specime... 07/04/20 Blood Culture - Preliminary, Resulted No Growth after 72 hours. All specime... Discharge Medications Scheduled Aspirin (Aspirin EC) 81 Mg Tablet., 81 MG PO DAILY, (Reported) Atorvastatin Calcium (Atorvastatin Calcium) 40 Mg Tablet, 40 MG PO DAILY, (Reported) Bifidobacterium Infantis (Align) 4 Mg Capsule, 4 MG PO DAILY, (Reported) Calcium Carbonate/Vitamin D3 (Calcium 600 + Vit D 400 Softgl) 1 Each Capsule, 1 CAP PO BID, (Reported) Cholecalciferol (Vitamin D3) (Vitamin D3) 50 Mcg Tablet, 50 MCG PO BID, (Reported) Cinnamon Bark/Chromium Picolin (Cinnamon Plus Chromium Capsule) 1 Each Capsule, 1 CAP PO BID, (Reported) Clopidogrel Bisulfate (Clopidogrel) 75 Mg Tab, 75 MG PO DAILY, (Reported) Donepezil HCl (Donepezil HCl) 10 Mg Tablet, 10 MG PO BID, (Reported) Famotidine (Famotidine) 20 Mg Tablet, 20 MG PO DAILY, (Reported) Ferrous Sulfate (Ferrous Sulfate) 325 Mg Tab, 325 MG PO BID, (Reported) Finasteride (Finasteride) 5 Mg Tab, 5 MG PO QHS, (Reported) Folic Acid (Folic Acid) 1 Mg Tablet, 1 MG PO DAILY, (Reported) Furosemide (Furosemide) 40 Mg Tablet, 40 MG PO DAILY, (Reported) Gabapentin (Gabapentin) 600 Mg Tablet, 600 MG PO BID, (Reported) Insulin Aspart (Novolog Flexpen) 100 Unit/1 Ml Insuln.pen, 1 DOSE SC AC, (Reported) PER SLIDING SCALE Iron (Iron) 18 Mg Tablet, 90 MG PO DAILY, (Reported) Levofloxacin (Levofloxacin) 250 Mg Tablet, 1 TAB PO DAILY Lutein (Lutein) 20 Mg Tablet, 20 MG PO DAILY, (Reported) Metoprolol Tartrate (Metoprolol Tartrate) 25 Mg Tablet, 25 MG PO BID, (Reported) Milk Thistle Seed Extract (Milk Thistle) 200 Mg Capsule, 200 MG PO BID, (Reported) Multivitamin (Multi-Vitamin Daily) 1 Tab Tab, 1 TAB PO DAILY, (Reported) Ramipril (Altace) 2.5 Mg Capsule, 2.5 MG PO QHS, (Reported) Scheduled PRN Acetaminophen (Pain Reliever) 650 Mg Tablet.er, 650 MG PO Q8H PRN for PAIN, ( Reported) Allergies Coded Allergies: No Known Allergies (Unverified , 12/27/17) CARMITA ENCARNACION MD Jul 09, 2020 06:51
--- NOTE | 2020-07-10 13:01 | ECGEPIP ---
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 Spoke with Nurse in charge last evening, M Medical Team is aware. Electronically Signed on 07-10-2020 13:01:36 EST by Kamaljit Jorge
--- NOTE | 2020-07-10 13:16 | ECGEPIP ---
[facility] Test Date: 2020-07-06 Pat Name: JOHN JARA Department: Room: Y8226-69 Gender: Male Silo Operator: YANETH : 1945 Requested By: Pacheco Andersen Order Number: [id number] Reading MD: Kamaljit Jorge Measurements Intervals [place] Rate: 73 P: -16 [place]: 156 QRS: -57 QRSD: 169 T: 55 QT: 473 QTc: 522 Interpretive Statements ELECTRONIC VENTRICULAR PACEMAKER ABNORMAL RHYTHM ECG Compared to prior (2) tracings in the system, a complete heart block was present Electronically Signed on 07-10-2020 13:15:38 EST by Kamaljit Jorge
--- NOTE | 2020-07-10 13:23 | ECGEPIP ---
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 Ventricular pacing activities were present and p priot to that, a complete heart block Electronically Signed on 07-10-2020 13:23:05 EST by Kamaljit Jorge
== END 2020-07-08 16:32 | disposition home or self-care (01) | DRG 982 ==
LOC: M ED 13:07 → M ED INP 17:17 → M MS5PR 20:00 → M PCU 07-05 14:10
PROVIDERS: ADMIT Internal Medicine Nephrology; ATTEND Internal Medicine Nephrology
PROC: 02H63JZ Insertion of Pacemaker Lead into Right Atrium, Percutaneous Approach (ICD-10-PCS; 2020-07-06)
PROC: 02HK3JZ Insertion of Pacemaker Lead into Right Ventricle, Percutaneous Approach (ICD-10-PCS; 2020-07-06)
PROC: 0JH606Z Insertion of Pacemaker, Dual Chamber into Chest Subcutaneous Tissue and Fascia, Open Approach (ICD-10-PCS; principal; 2020-07-06 11:25)
DX: E11.69 Type 2 diabetes mellitus with other specified complication (principal); M86.9 Osteomyelitis, unspecified; I44.2 Atrioventricular block, complete; I13.0 Hypertensive heart and chronic kidney disease with heart failure and stage 1 through stage 4 chronic kidney disease, or unspecified chronic kidney disease; I25.10 Atherosclerotic heart disease of native coronary artery without angina pectoris; E11.51 Type 2 diabetes mellitus with diabetic peripheral angiopathy without gangrene; E11.621 Type 2 diabetes mellitus with foot ulcer; N17.9 Acute kidney failure, unspecified; L97.519 Non-pressure chronic ulcer of other part of right foot with unspecified severity; I50.9 Heart failure, unspecified; N18.30 Chronic kidney disease, stage 3 unspecified; N40.0 Benign prostatic hyperplasia without lower urinary tract symptoms; E11.40 Type 2 diabetes mellitus with diabetic neuropathy, unspecified; F03.90 Unspecified dementia, unspecified severity, without behavioral disturbance, psychotic disturbance, mood disturbance, and anxiety; E11.22 Type 2 diabetes mellitus with diabetic chronic kidney disease; E78.5 Hyperlipidemia, unspecified; Z98.62 Peripheral vascular angioplasty status; Z98.1 Arthrodesis status; Z20.828 Contact with and (suspected) exposure to other viral communicable diseases; Z79.82 Long term (current) use of aspirin; Z89.421 Acquired absence of other right toe(s); Z79.4 Long term (current) use of insulin; Z79.02 Long term (current) use of antithrombotics/antiplatelets; Z79.899 Other long term (current) drug therapy

== ENCOUNTER → 2020-11-30 | Outpatient (CLI) | payer MEDICARE, OTHER ==
[~2020-11-30] MED LIST changes: +ALIG4CAP PO; +ASPI81TA26 PO; +ATOR40TA75 PO; +FOLI1TAB11 PO; +GABA-282 PO; -GABA-843 PO; +GABA600T4 PO; +IRON18TA PO; +LEVO250T12 PO; +LUTE20TA2 PO; +METO1TAB87 PO
--- NOTE | 2020-12-01 23:21 | ECWPNPC ---
PATIENT NAME: JOHN JARA : 1945 GENDER: MALE VISIT DATE: 11/30/2020 DISCHARGE DATE: 11/30/20 1105 VISIT LOCKED DATE TIME: PHYSICIAN: CHASE MOODY RESOURCE: CHASE MOODY REASON FOR APPOINTMENT 1. RIGHT LEG PAIN HISTORY OF PRESENT ILLNESS DEPRESSION SCREENING: PHQ-2 (2015 EDITION) LITTLE INTEREST OR PLEASURE IN DOING THINGS?NOT AT ALL FEELING DOWN, DEPRESSED, OR HOPELESS?NOT AT ALL TOTAL SCORE0 75-YEAR-OLD MALE IN FOR NEW PATIENT CONSULT REGARDING LEFT LEG PAIN. PATIENT SAYS THE PAIN PAIN IS BEEN PRESENT FOR SOME TIME AND IT STARTS IN HIS LOW BACK AND RADIATES DOWN THE LEFT LEG. HE RATES HIS PAIN CURRENTLY AT A 7 OUT OF 10 AND DESCRIBES IT ACHING, AND CONTINUOUS. HE DENIES PROCEDURES AND/OR MEDICATIONS THAT HELPED HIM IN THE PAST. GENERAL: - - -. FALL RISK SCREENING: SCREENING ONE FALL WITH INJURY IN THE LAST YEAR. PATIENT WENT TO [facility] FOR TREATMENT,. PAIN SCREENING: PATIENT HAS A COMPLAINT OF ACUTE OR CHRONIC PAIN :YES LOCATION OF PAIN:LOW BACK, RIGHT HIP, LEG(S) INTENSITY OF PAIN (SCALE OF 1 TO 10):7 WHAT DOES YOUR PAIN FEEL LIKE:ACHING, CONTINOUS DURATION:CONTINOUS, AWAKENS FROM SLEEP PAIN IS INCREASED BY:ACTIVITIES, PROLONGED STANDING PAIN IS DECREASED BY:OTHERS LAYING FLAT, HEAT NURSING NOTE: - - -. PAIN CENTER INTAKE QUESTIONS: DO YOU HAVE A HISTORY OF MRSA? :NO DO YOU TAKE A BLOOD THINNERS? :YES PLAVIX DO YOU HAVE ANY BLEEDING DISORDERS? :NO ANY NEW NUMBNESS OR WEAKNESS IN YOUR LEGS OR ARMS? :NO ANY PACEMAKER,DEFIBRILLATOR, OR DORSAL COLUMN STIMULATOR? :YES PACEMAKER DO YOU HAVE ANY RASHES OR OPEN SORES? :YES DIABETIC ULCERS ON FEET ARE YOU ALLERGIC TO IV DYE? :NO ARE YOU DIABETIC? :YES ANY NEW PROBLEMS WITH YOUR MEDICATIONS? :NO HAVE YOU RECEIVED A VACCINE IN THE PAST 30 DAYS? :NO DO YOU PLAN TO RECEIVE A VACCINE IN THE NEXT 21 DAYS? :NO DO YOU NEED ANY PRESCRIPTION? :NO DO YOU TAKE ANY IMMUNOSUPPRESSIVE MEDICATIONS? :NO CURRENT MEDICATIONS TAKING GABAPENTIN 800 MG TABLET 1 CAPSULE BEFORE BEDTIME ORALLY TWICE DAILY TAKING LEVEMIR 100 UNIT/ML SOLUTION SUBCUTANEOUS 40 AT BEDTIME TAKING NOVOLOG 100 UNIT/ML SOLUTION PER SLIDING SCALE SUBCUTANEOUS THREE TIMES DAILY TAKING FUROSEMIDE 20 MG TABLET 1 TABLET ORALLY ONCE A DAY TAKING CLOPIDOGREL BISULFATE 75 MG TABLET 1 TABLET ORALLY ONCE A DAY TAKING MULTIVITAMIN ADULT - TABLET ORALLY TAKING FINASTERIDE 5 MG TABLET 1 TABLET ORALLY ONCE A DAY TAKING DONEPEZIL HCL 10 MG TABLET 1 TAB ORALLY BID TAKING ATORVASTATIN CALCIUM 20 MG TABLET 1 TABLET ORALLY ONCE A DAY TAKING FERROUS SULFATE 324 MG TABLET ORALLY TAKING VITAMIN C 500 MG CAPSULE ORALLY BID TAKING CALCIUM CARBONATE-VITAMIN D 600-125 MG-UNIT TABLET 1 TABLET WITH FOOD ORALLY BID TAKING ACIDOPHILUS PROBIOTIC - TABLET ORALLY DAILY TAKING CALCIUM MAGNESIUM TAKING FOLIC ACID 1 MG TABLET 1 TABLET ORALLY ONCE A DAY TAKING METOPROLOL SUCCINATE 25 MG CAPSULE ER 24 HOUR SPRINKLE 1 CAPSULE ORALLY BID TAKING TRULICITY 0.75 MG/0.5ML SOLUTION PEN-INJECTOR DIRECTED SUBCUTANEOUS WEEKLY NOT-TAKING ATENOLOL 25 MG TABLET 1 TABLET ORALLY ONCE A DAY NOT-TAKING AMLODIPINE BESYLATE 5 MG TABLET 1 TABLET ORALLY ONCE A DAY NOT-TAKING HYDRALAZINE HCL 25 MG TABLET 1 TABLET WITH FOOD ORALLY BID NOT-TAKING MAGNESIUM 400 MG TABLET 1 TABLET WITH A MEAL ORALLY TWICE A DAY NOT-TAKING BYDUREON BCISE 2 MG INJECTION SUSPENSION EXTENDED RELEASE DIRECTED SUBCUTANEOUS WEEKLY UNKNOWN DAPTOMYCIN 500 MG SOLUTION RECONSTITUTED DIRECTED INTRAVENOUS DAILY UNKNOWN DALVANCE 500 MG SOLUTION RECONSTITUTED 1500 MG INTRAVENOUS ONCE ON 02/09/18 DX INFECTED ULCER STAPH AND EFECALIS UNKNOWN TRAMADOL HCL 50 MG TABLET 1 TABLET NEEDED ORALLY EVERY 6 HRS UNKNOWN MAPAP 325 MG TABLET 1 TABLET NEEDED ORALLY EVERY 6 HRS MEDICATION LIST REVIEWED AND RECONCILED WITH THE PATIENT PAST MEDICAL HISTORY DM II HTN STAGE [address] DUARTE [facility] , STENTS PLACED IN BOTH KIDNEYS FOR RENAL ARTERY STENOSIS ABOUT A YEAR AGO. OSTEOMYELITIS LEFT FOOT BONE CULTURE POSITIVE FOR E.FAECALIS AND STAPH COAG NEGATIVE ALLERGIES N.K.D.A. FAMILY HISTORY FATHER: , DIAGNOSED WITH OTHER MALIGNANT NEOPLASM OF UNSPECIFIED SITE, DIABETES MOTHER: , DIABETES, HYPERTENSION SIBLINGS: ALIVE, DIABETES, OTHER MALIGNANT NEOPLASM OF UNSPECIFIED SITE DAUGHTER(S): ALIVE 1 BROTHER(S) , 2 SISTER(S) . 2DAUGHTER(S) - HEALTHY. BROTHER -CANCER. SOCIAL HISTORY GENERAL: TOBACCO USE ARE YOU A:NONSMOKER NEVER SMOKER LATEX QUESTIONNAIRE LATEX ALLERGY : HAVE YOU EVER DEVELOPED ANY TYPE OF REACTION AFTER HANDLING LATEX PRODUCTS SUCH RUBBER GLOVES, CONDOMS, DIAPHRAGMS, BALLOONS, SOCKS, OR UNDERWEAR?NO LATEX ALLERGY : HAVE YOU EVER DEVELOPED ANY TYPE OF REACTION DURING OR AFTER DENTAL APPOINTMENT, VAGINAL/RECTAL EXAMINATION, SURGICAL PROCEDURE, OR ANY OTHER EXPOSURE?NO LATEX RISK : HAVE YOU EVER HAD ANY DIFFICULTY BREATHING OR HIVES AFTER EATING OR HANDLING ANY FRUITS, OR VEGETABLES; SUCH KIWI, BANANAS, STONE FRUITS, OR CHESTNUTSNO LATEX RISK : DO YOU HAVE A PREVIOUS PERSONAL HISTORY OF MORE THAN NINE SURGERIES, SPINA BIFIDA, OR REPEATED CATHERIZATIONS? NO LATEX RISK : ARE YOU FREQUENTLY EXPOSED TO LATEX PRODUCTS IN YOUR OCCUPATION?NO DATE ASKED : 11/30/2020 ALCOHOL USE: NO. ALCOHOL SCREENING DID YOU HAVE A DRINK CONTAINING ALCOHOL IN THE PAST YEAR?NO POINTS0 INTERPRETATIONNEGATIVE RECREATIONAL DRUG USE DRUG USE?NO CAFFEINE CAFFEINE USE?NO CHRISTIANITY CHRISTIANITY NO PROTESTANT BELIEFS THAT WOULD IMPACT HEALTH CARE. LANGUAGE LANGUAGES SPOKEN:FIJIAN EDUCATION LEVEL OF EDUCATION:HIGH SCHOOL LEARNING BARRIERS / SPECIAL NEEDS CHANGE FROM LAST VISIT?NO BARRIERS TO LEARNING?NO HEARING IMPAIRED?NO VISION IMPAIRED?NO COGNITIVELY IMPAIRED?NO READINESS TO LEARN?YES LEARNING PREFERENCES?NO LEARNING CAPABILITIES PRESENT?YES EMOTIONAL BARRIERS?NO SPECIAL DEVICES?YES :CANE, [employer] SPECIALIST NEEDED?NO DOMESTIC VIOLENCE DO YOU FEEL SAFE IN YOUR ENVIRONMENT?YES OCCUPATION: RETIRED. DIET: NO CONCENTRATED SWEETS.. EXERCISE: NO REGULAR EXERCISE. MARITAL STATUS: .. OTHERS AT HOME: DAUGHTER. REVIEW OF SYSTEMS CONSTITUTIONAL: ANY RECENT FEVER NO . CHILLS NO . WEIGHT CHANGE OF UNKNOWN REASONS NO . MUSCULOSKELETAL: ANY UNUSUAL JOINT PAIN OR SWELLING NOT MENTIONED NO . SYSTEMIC LUPUS NO . ANY NEUROMUSCULAR DISORDER NOT MENTIONED NO . LYME DISEASE NO . GASTROENTEROLOGY: ANY NEW CHANGE IN BOWEL CONTROL? NO . HISTORY OF LIVER DISORDER NOT MENTIONED NO . HISTORY OF UNUSUAL ABDOMINAL PAIN OR CRAMPING NOT MENTIONED NO . NO CONSTIPATION. GENITOURINARY: ANY NEW CHANGE IN BLADDER CONTROL? NO . ANY RENAL/KIDNEY CONDITON NOT MENTIONED NO . NEUROLOGY: HISTORY OF TBI NOT MENTIONED NO . OTHER NEW NUMBNESS OR PAIN PATTERNS NOT MENTIONED NO . NEW ONSET DIZZINESS OR NEUROLOGICAL CHANGES NOT MENTIONED NO . HISTORY OF SEVERE HEADACHES NOT MENTIONED NO . HISTORY OF STROKE OR NEUROLOGICAL DISORDER NOT MENTIONED NO . CARDIOLOGY: HEART SURGERY NO . CONGESTIVE HEART FAILURE/FLUID OVERLOAD NOT MENTIONED NO . HISTORY OF CHEST PAIN,IRREGULAR HEART BEAT NOT MENTIONED NO . RESPIRATORY: SHORTNESS OF BREATH ON EXERTION, WHEEZES, UNUSUAL COUGH NOT MENTIONED NO . ENDOCRINOLOGY: ADRENAL GLAND OR THYROID DISORDERS NOT MENTIONED NO . UNUSUAL URINATION, DIZZINESS OR LETHARGY NOT MENTIONED NO . VITAL SIGNS WT 186.0 LBS, HT 63 IN, BMI 32.94 INDEX, BP 107/53 MM HG, HR 60 /MIN, RR 18 /MIN, TEMP 97.2 F, OXYGEN SAT % 93, SAFE IN ENV? (Y/N) YES, NA INITIALS AW 1022, REVIEWED BY: YUDI ALVAREZ MA. EXAMINATION GENERAL EXAMINATION: GENERALNO ACUTE DISTRESS, WELL NOURISHED AND HYDRATED. PSYCHAPPROPRIATE MOOD AND AFFECT . LUNGS:CLEAR TO AUSCULTATION BILATERALLY, NO WHEEZES, RHONCHI, RALES. HEART:NO MURMURS, REGULAR RATE AND RHYTHM. BACK:POINT TENDER OVER LUMBAR SPINE, SURROUNDING SKIN SHOWS NO ERYTHEMA, ECCHYMOSIS, INCREASED WARMTH, AND/OR SKIN ERUPTIONS NOTED. POSITIVE MODIFIED SLR LEFT SIDE . ASSESSMENTS LOW BACK PAIN WITH RADIATION, LEFT - M54.42 (PRIMARY) TREATMENT LOW BACK PAIN WITH RADIATION, LEFT [facility] CT SPINE, LUMBAR W/O [id number] NOTES: 75-YEAR-OLD MALE IN FOR INITIAL PAIN CONSULT REGARDING LOW BACK PAIN WITH RADICULOPATHY. GIVEN PRESENTING SYMPTOMS AND RESULTS OF PHYSICAL EXAMINATION RECOMMEND OBTAINING A CT OF THE LUMBAR SPINE WITH POST IMAGING FOLLOW-UP. PATIENT HAS EXPRESSED UNDERSTANDING OF AND WAS IN AGREEMENT WITH TREATMENT PLAN. GIVEN TIME TO ASK QUESTIONS AND EXPRESS CONCERNS. PROCEDURE CODES FA211 ESTABILISHED PATIENT [facility] CHARGE DISPOSITION & COMMUNICATION FOLLOW UP POST IMAGING (REASON: CT OF THE LUMBAR SPINE ) ELECTRONICALLY SIGNED BY LYUDMILA ORDONEZ ON 12/01/2020 AT 10:06 AM EDT DISCLAIMER : THIS IS A VISIT SUMMARY EXTRACTED FROM THE [employer] CHART. IT IS NOT A COPY OF THE [employer] PROGRESS NOTE. MTDD
== END ==
LOC: M PAIN 10:30
PROVIDERS: ATTEND Family Medicine
DX: M54.42 Lumbago with sciatica, left side (principal); E11.22 Type 2 diabetes mellitus with diabetic chronic kidney disease; I12.9 Hypertensive chronic kidney disease with stage 1 through stage 4 chronic kidney disease, or unspecified chronic kidney disease; N18.30 Chronic kidney disease, stage 3 unspecified; Z79.4 Long term (current) use of insulin; Z79.899 Other long term (current) drug therapy

== ENCOUNTER → 2020-12-22 | Outpatient (CLI) | payer MEDICARE, OTHER ==
--- NOTE | 2020-12-24 00:12 | ECWPNPC ---
PATIENT NAME: JOHN JARA : 1945 GENDER: MALE VISIT DATE: 12/22/2020 DISCHARGE DATE: 12/22/20 1205 VISIT LOCKED DATE TIME: PHYSICIAN: CHASE MOODY RESOURCE: CHASE MOODY REASON FOR APPOINTMENT 1. MRI REVIEW HISTORY OF PRESENT ILLNESS GENERAL: -75-YEAR-OLD MALE IN FOR CHRONIC PAIN FOLLOW-UP. HE RATES HIS PAIN CURRENTLY AT A 4/10 AND DESCRIBES IT ACHING AND CONTINUOUS. AT LAST CLINIC VISIT A CT WAS ORDERED AND IT WILL BE REVIEWED WITH PATIENT TODAY. FALL RISK SCREENING: SCREENING A FEW FALLS REPORTED IN THE LAST YEAR. PATIENT DID NOT SEEK IMMEDIATE MEDICAL TREATMENT.. PAIN SCREENING: PATIENT HAS A COMPLAINT OF ACUTE OR CHRONIC PAIN :YES LOCATION OF PAIN:LOW BACK, RIGHT HIP INTENSITY OF PAIN (SCALE OF 1 TO 10):4 WHAT DOES YOUR PAIN FEEL LIKE:ACHING, CONTINOUS DURATION:CONTINOUS, AWAKENS FROM SLEEP PAIN IS INCREASED BY:ACTIVITIES, PROLONGED STANDING PAIN IS DECREASED BY:USE OF PAIN MEDICATIONS, SITTING TRAMADOL HELPS LITTLE, HEATING PAD, ELEVATE LEGS IN RECLINER HELPS NURSING NOTE: -. PAIN CENTER INTAKE QUESTIONS: DO YOU HAVE A HISTORY OF MRSA? :NO DO YOU TAKE A BLOOD THINNERS? :YES PLAVIX DO YOU HAVE ANY BLEEDING DISORDERS? :NO ANY NEW NUMBNESS OR WEAKNESS IN YOUR LEGS OR ARMS? :NO ANY PACEMAKER,DEFIBRILLATOR, OR DORSAL COLUMN STIMULATOR? :YES PACEMAKER DO YOU HAVE ANY RASHES OR OPEN SORES? :YES DIABETIC ULCERS ON FEET ARE YOU ALLERGIC TO IV DYE? :NO ARE YOU DIABETIC? :YES ANY NEW PROBLEMS WITH YOUR MEDICATIONS? :NO HAVE YOU RECEIVED A VACCINE IN THE PAST 30 DAYS? :YES IF SO WHAT VACCINE AND WHEN? FIRST COVID VACCINATION 12/17/2020 DO YOU PLAN TO RECEIVE A VACCINE IN THE NEXT 21 DAYS? :YES SECOND COVID VACCINATION 01/14/2021 DO YOU NEED ANY PRESCRIPTION? :NO DO YOU TAKE ANY IMMUNOSUPPRESSIVE MEDICATIONS? :NO CURRENT MEDICATIONS TAKING GABAPENTIN 800 MG TABLET 1 CAPSULE ORALLY ONCE A DAY TAKING GABAPENTIN 300 MG CAPSULE 1 CAPSULE BEFORE BEDTIME ORALLY TWICE DAILY TAKING LEVEMIR 100 UNIT/ML SOLUTION SUBCUTANEOUS 40 AT BEDTIME TAKING NOVOLOG 100 UNIT/ML SOLUTION PER SLIDING SCALE SUBCUTANEOUS THREE TIMES DAILY TAKING FUROSEMIDE 20 MG TABLET 1 TABLET ORALLY ONCE A DAY TAKING CLOPIDOGREL BISULFATE 75 MG TABLET 1 TABLET ORALLY ONCE A DAY, NOTES: BLOOD THINNER TAKING MULTIVITAMIN ADULT - TABLET ORALLY TAKING FINASTERIDE 5 MG TABLET 1 TABLET ORALLY ONCE A DAY TAKING DONEPEZIL HCL 10 MG TABLET 1 TAB ORALLY BID TAKING ATORVASTATIN CALCIUM 20 MG TABLET 1 TABLET ORALLY ONCE A DAY TAKING FERROUS SULFATE 324 MG TABLET ORALLY TAKING VITAMIN C 500 MG CAPSULE ORALLY BID TAKING CALCIUM CARBONATE-VITAMIN D 600-125 MG-UNIT TABLET 1 TABLET WITH FOOD ORALLY BID TAKING ACIDOPHILUS PROBIOTIC - TABLET ORALLY DAILY TAKING CALCIUM MAGNESIUM TAKING FOLIC ACID 1 MG TABLET 1 TABLET ORALLY ONCE A DAY TAKING METOPROLOL SUCCINATE 25 MG CAPSULE ER 24 HOUR SPRINKLE 1 CAPSULE ORALLY BID TAKING TRULICITY 1.5 MG/0.5ML SOLUTION PEN-INJECTOR DIRECTED SUBCUTANEOUS WEEKLY TAKING ATENOLOL 25 MG TABLET 1 TABLET ORALLY ONCE A DAY TAKING AMLODIPINE BESYLATE 5 MG TABLET 1 TABLET ORALLY ONCE A DAY TAKING HYDRALAZINE HCL 25 MG TABLET 1 TABLET WITH FOOD ORALLY BID TAKING MAGNESIUM 400 MG TABLET 1 TABLET WITH A MEAL ORALLY TWICE A DAY TAKING BYDUREON BCISE 2 MG INJECTION SUSPENSION EXTENDED RELEASE DIRECTED SUBCUTANEOUS WEEKLY TAKING DAPTOMYCIN 500 MG SOLUTION RECONSTITUTED DIRECTED INTRAVENOUS DAILY TAKING DALVANCE 500 MG SOLUTION RECONSTITUTED 1500 MG INTRAVENOUS ONCE ON 02/09/18 DX INFECTED ULCER STAPH AND EFECALIS TAKING TRAMADOL HCL 50 MG TABLET 1 TABLET NEEDED ORALLY EVERY 6 HRS TAKING MAPAP 325 MG TABLET 1 TABLET NEEDED ORALLY EVERY 6 HRS MEDICATION LIST REVIEWED AND RECONCILED WITH THE PATIENT PAST MEDICAL HISTORY DM II HTN STAGE [address] [facility]TE [facility] , STENTS PLACED IN BOTH KIDNEYS FOR RENAL ARTERY STENOSIS ABOUT A YEAR AGO. OSTEOMYELITIS LEFT FOOT BONE CULTURE POSITIVE FOR E.FAECALIS AND STAPH COAG NEGATIVE ALLERGIES N.K.D.A. FAMILY HISTORY FATHER: , DIAGNOSED WITH DIABETES, OTHER MALIGNANT NEOPLASM OF UNSPECIFIED SITE MOTHER: , HYPERTENSION, DIABETES SIBLINGS: ALIVE, DIABETES, OTHER MALIGNANT NEOPLASM OF UNSPECIFIED SITE DAUGHTER(S): ALIVE 1 BROTHER(S) , 2 SISTER(S) . 2DAUGHTER(S) - HEALTHY. BROTHER -CANCER. SISTER 12/19/2020. SOCIAL HISTORY GENERAL: TOBACCO USE ARE YOU A:NONSMOKER NEVER SMOKER LATEX QUESTIONNAIRE LATEX ALLERGY : HAVE YOU EVER DEVELOPED ANY TYPE OF REACTION AFTER HANDLING LATEX PRODUCTS SUCH RUBBER GLOVES, CONDOMS, DIAPHRAGMS, BALLOONS, SOCKS, OR UNDERWEAR?NO LATEX ALLERGY : HAVE YOU EVER DEVELOPED ANY TYPE OF REACTION DURING OR AFTER DENTAL APPOINTMENT, VAGINAL/RECTAL EXAMINATION, SURGICAL PROCEDURE, OR ANY OTHER EXPOSURE?NO LATEX RISK : HAVE YOU EVER HAD ANY DIFFICULTY BREATHING OR HIVES AFTER EATING OR HANDLING ANY FRUITS, OR VEGETABLES; SUCH KIWI, BANANAS, STONE FRUITS, OR CHESTNUTSNO LATEX RISK : DO YOU HAVE A PREVIOUS PERSONAL HISTORY OF MORE THAN NINE SURGERIES, SPINA BIFIDA, OR REPEATED CATHERIZATIONS? NO LATEX RISK : ARE YOU FREQUENTLY EXPOSED TO LATEX PRODUCTS IN YOUR OCCUPATION?NO DATE ASKED : 12/22/2020 ALCOHOL USE: NO. ALCOHOL SCREENING DID YOU HAVE A DRINK CONTAINING ALCOHOL IN THE PAST YEAR?NO POINTS0 INTERPRETATIONNEGATIVE RECREATIONAL DRUG USE DRUG USE?NO CAFFEINE CAFFEINE USE?NO BAPTISM BAPTISM NO EPISCOPALIAN BELIEFS THAT WOULD IMPACT HEALTH CARE. LANGUAGE LANGUAGES SPOKEN:RUSSIAN EDUCATION LEVEL OF EDUCATION:HIGH SCHOOL LEARNING BARRIERS / SPECIAL NEEDS CHANGE FROM LAST VISIT?NO BARRIERS TO LEARNING?NO HEARING IMPAIRED?NO VISION IMPAIRED?NO COGNITIVELY IMPAIRED?NO READINESS TO LEARN?YES LEARNING PREFERENCES?NO LEARNING CAPABILITIES PRESENT?YES EMOTIONAL BARRIERS?NO SPECIAL DEVICES?YES :CANE, WALKER TALENT COORDINATOR NEEDED?NO DOMESTIC VIOLENCE DO YOU FEEL SAFE IN YOUR ENVIRONMENT?YES OCCUPATION: RETIRED. DIET: NO CONCENTRATED SWEETS.. EXERCISE: NO REGULAR EXERCISE. MARITAL STATUS: .. OTHERS AT HOME: DAUGHTER. REVIEW OF SYSTEMS CONSTITUTIONAL: ANY RECENT FEVER NO . CHILLS NO . WEIGHT CHANGE OF UNKNOWN REASONS NO . GASTROENTEROLOGY: NEW UNEXPLAINABLE CHANGES IN BOWEL CONTROL NO . CONSTIPATION NO . GENITOURINARY: ANY NEW CHANGE IN BLADDER CONTROL? NO . NEUROLOGY: NEW ONSET DIZZINESS OR NEUROLOGICAL CHANGES NOT MENTIONED NO . NEW NUMBNESS OR PAIN PATTERNS NOT MENTIONED AND PERTINENT TO TODAY'S VISIT NO . CARDIOLOGY: NEW CHEST PRESSURE NO . PATIENT DENIES NO . RESPIRATORY: UNEXPLAINABLE COUGH NO . NEW SHORTNESS OF BREATH NO . VITAL SIGNS WT 190.2 LBS, HT 63 IN, BMI 33.69 INDEX, BP 147/67 MM HG, HR 61 /MIN, RR 18 /MIN, TEMP 98.2 F, OXYGEN SAT % 95%, SAFE IN ENV? (Y/N) YES, NA INITIALS SC 11:00, REVIEWED BY: YUDI ALVAREZ MA. EXAMINATION GENERAL EXAMINATION: GENERALNO ACUTE DISTRESS, WELL NOURISHED AND HYDRATED. PSYCHAPPROPRIATE MOOD AND AFFECT . LUNGS:CLEAR TO AUSCULTATION BILATERALLY, NO WHEEZES, RHONCHI, RALES. HEART:NO MURMURS, REGULAR RATE AND RHYTHM. BACK:POINT TENDER ALONG LUMBAR SPINE, SURROUNDING SKIN SHOWS NO ERYTHEMA, ECCHYMOSIS, INCREASED WARMTH, AND/OR SKIN ERUPTIONS NOTED. PATIENT DOES ENDORSE INCREASED PAIN WITH FACET LOADING. ASSESSMENTS SPONDYLOSIS OF LUMBOSACRAL REGION WITHOUT MYELOPATHY OR RADICULOPATHY - M47.817 (PRIMARY) TREATMENT SPONDYLOSIS OF LUMBOSACRAL REGION WITHOUT MYELOPATHY OR RADICULOPATHY NOTES: 75-YEAR-OLD MALE IN FOR CHRONIC PAIN FOLLOW-UP. GIVEN PRESENTING SYMPTOMS AND RESULTS OF PHYSICAL EXAMINATION RECOMMEND BILATERAL THERAPEUTIC LUMBAR FACET BLOCKS L4-L5 L5-S1 WITH POSTPROCEDURAL FOLLOW-UP. PATIENT HAS EXPRESSED UNDERSTANDING OF AND WAS IN AGREEMENT WITH TREATMENT PLAN. GIVEN TIME TO ASK QUESTIONS AND EXPRESS CONCERNS. CLINICAL NOTES: PREPROCEDURE AND PROCEDURE INFORMATION PRINTED AND PROVIDED TO PATIENT. PATIENT VERBALIZED AN UNDERSTANDING. [employer] REQUEST SENT TO DR. FRAN BOURGEOIS FOR CLOPIGREL. SIVA ALVAREZ MA. PROCEDURE CODES FA211 ESTABILISHED PATIENT [facility] CHARGE DISPOSITION & COMMUNICATION FOLLOW UP POST PROCEDURE (REASON: BILATERAL THERAPEUTIC LUMBAR FACET BLOCK L4-L5 L5-S1) ELECTRONICALLY SIGNED BY LYUDMILA ORDONEZ ON 12/23/2020 AT 10:36 AM EDT DISCLAIMER : THIS IS A VISIT SUMMARY EXTRACTED FROM THE [employer] CHART. IT IS NOT A COPY OF THE [employer] PROGRESS NOTE. ANDREIA
== END ==
LOC: M PAIN 10:45
PROVIDERS: ATTEND Family Medicine
DX: M47.817 Spondylosis without myelopathy or radiculopathy, lumbosacral region (principal); G89.29 Other chronic pain; E11.9 Type 2 diabetes mellitus without complications; Z79.4 Long term (current) use of insulin; Z79.899 Other long term (current) drug therapy

== ENCOUNTER → 2021-03-11 | Outpatient (CLI) | payer MEDICARE, OTHER | LOC: M LABSMTC 13:39 | PROVIDERS: ATTEND Anesthesiology | DX: Z20.822 Contact with and (suspected) exposure to COVID-19 (principal) ==

== ENCOUNTER → 2021-03-23 | Outpatient (CLI) | payer MEDICARE, OTHER ==
--- NOTE | 2021-03-25 00:04 | ECWPNPC ---
PATIENT NAME: JOHN JARA : 1945 GENDER: MALE VISIT DATE: 03/23/2021 DISCHARGE DATE: 03/23/21 1522 VISIT LOCKED DATE TIME: PHYSICIAN: CHASE MOODY RESOURCE: CHASE MOODY REASON FOR APPOINTMENT 1. DISCUSS TX OPTIONS AFTER HEART ATTACK HISTORY OF PRESENT ILLNESS GENERAL: HPI 75-YEAR-OLD MALE IN FOR CHRONIC PAIN FOLLOW-UP. HE RATES HIS PAIN CURRENTLY A 5 OUT OF 10 AND DESCRIBES IT ACHING AND CONTINUOUS. PATIENT WAS SLATED TO HAVE PROCEDURES DONE PREVIOUSLY HOWEVER SINCE THAT TIME PATIENT HAS SUFFERED A HEART ATTACK AND IS HERE TO DISCUSS TREATMENT OPTIONS STATUS POST HEART ATTACK.. -. FALL RISK SCREENING: SCREENING TWO FALLS REPORTED IN THE LAST YEAR WITH INJURY. PATIENT SOUGHT IMMEDIATE MEDICAL TREATMENT.. PAIN SCREENING: PATIENT HAS A COMPLAINT OF ACUTE OR CHRONIC PAIN :YES LOCATION OF PAIN:LOW BACK INTENSITY OF PAIN (SCALE OF 1 TO 10):5 WHAT DOES YOUR PAIN FEEL LIKE:ACHING, CONTINOUS DURATION:CONTINOUS, CONSTANT PAIN IS INCREASED BY:ACTIVITIES, PROLONGED STANDING PAIN IS DECREASED BY:USE OF PAIN MEDICATIONS, SITTING REPOSITIONING NURSING NOTE: -. PAIN CENTER INTAKE QUESTIONS: DO YOU HAVE A HISTORY OF MRSA? :NO DO YOU TAKE A BLOOD THINNERS? :YES BRILINTA DO YOU HAVE ANY BLEEDING DISORDERS? :NO ANY NEW NUMBNESS OR WEAKNESS IN YOUR LEGS OR ARMS? :YES RIGHT LEG WEAKNESS ANY PACEMAKER,DEFIBRILLATOR, OR DORSAL COLUMN STIMULATOR? :YES PACEMAKER DO YOU HAVE ANY RASHES OR OPEN SORES? :NO ARE YOU ALLERGIC TO IV DYE? :NO ARE YOU DIABETIC? :YES ANY NEW PROBLEMS WITH YOUR MEDICATIONS? :NO HAVE YOU RECEIVED A VACCINE IN THE PAST 30 DAYS? :NO SECOND COVID VACCINATION 01/14/2021 DO YOU PLAN TO RECEIVE A VACCINE IN THE NEXT 21 DAYS? :NO DO YOU NEED ANY PRESCRIPTION? :NO DO YOU TAKE ANY IMMUNOSUPPRESSIVE MEDICATIONS? :NO CURRENT MEDICATIONS TAKING BRILINTA 90 MG TABLET 1 TABLET ORALLY TWICE A DAY TAKING ASPIRIN ADULT LOW STRENGTH 81 MG TABLET DELAYED RELEASE 1 TABLET ORALLY ONCE A DAY TAKING GABAPENTIN 800 MG TABLET 1 CAPSULE ORALLY ONCE A DAY TAKING GABAPENTIN 300 MG CAPSULE 1 CAPSULE BEFORE BEDTIME ORALLY TWICE DAILY TAKING LEVEMIR 100 UNIT/ML SOLUTION DIRECTED SUBCUTANEOUS 10 IN AM AND 40 AT BEDTIME TAKING NOVOLOG 100 UNIT/ML SOLUTION PER SLIDING SCALE SUBCUTANEOUS THREE TIMES DAILY TAKING FUROSEMIDE 40 MG TABLET 1 TABLET ORALLY ONCE A DAY TAKING MULTIVITAMIN ADULT - TABLET ORALLY DAILY TAKING FINASTERIDE 5 MG TABLET 1 TABLET ORALLY ONCE A DAY TAKING DONEPEZIL HCL 10 MG TABLET 1 TAB ORALLY BID TAKING ATORVASTATIN CALCIUM 80 MG TABLET 1 TABLET ORALLY ONCE A DAY TAKING FERROUS SULFATE 324 MG TABLET ORALLY ONCE A DAY TAKING VITAMIN C 500 MG CAPSULE ORALLY BID TAKING CALCIUM CARBONATE-VITAMIN D 600-125 MG-UNIT TABLET 1 TABLET WITH FOOD ORALLY BID TAKING ACIDOPHILUS PROBIOTIC - TABLET ORALLY DAILY TAKING CALCIUM MAGNESIUM ONCE A DAY TAKING FOLIC ACID 1 MG TABLET 1 TABLET ORALLY ONCE A DAY TAKING METOPROLOL SUCCINATE 25 MG CAPSULE ER 24 HOUR SPRINKLE 1 CAPSULE ORALLY BID TAKING HYDRALAZINE HCL 25 MG TABLET 1 TABLET WITH FOOD ORALLY BID TAKING MAGNESIUM 400 MG TABLET 1 TABLET WITH A MEAL ORALLY TWICE A DAY TAKING MAPAP 325 MG TABLET 1 TABLET NEEDED ORALLY EVERY 6 HRS NOT-TAKING CLOPIDOGREL BISULFATE 75 MG TABLET 1 TABLET ORALLY ONCE A DAY, NOTES: BLOOD THINNER; 02/06/21 NOT-TAKING TRULICITY 1.5 MG/0.5ML SOLUTION PEN-INJECTOR DIRECTED SUBCUTANEOUS WEEKLY NOT-TAKING ATENOLOL 25 MG TABLET 1 TABLET ORALLY ONCE A DAY NOT-TAKING AMLODIPINE BESYLATE 5 MG TABLET 1 TABLET ORALLY ONCE A DAY NOT-TAKING BYDUREON BCISE 2 MG INJECTION SUSPENSION EXTENDED RELEASE DIRECTED SUBCUTANEOUS WEEKLY NOT-TAKING DAPTOMYCIN 500 MG SOLUTION RECONSTITUTED DIRECTED INTRAVENOUS DAILY NOT-TAKING DALVANCE 500 MG SOLUTION RECONSTITUTED 1500 MG INTRAVENOUS ONCE ON 02/09/18 DX INFECTED ULCER STAPH AND EFECALIS NOT-TAKING TRAMADOL HCL 50 MG TABLET 1 TABLET NEEDED ORALLY EVERY 6 HRS MEDICATION LIST REVIEWED AND RECONCILED WITH THE PATIENT PAST MEDICAL HISTORY DM II HTN STAGE [address] DUARTE [facility] , STENTS PLACED IN BOTH KIDNEYS FOR RENAL ARTERY STENOSIS ABOUT A YEAR AGO. OSTEOMYELITIS LEFT FOOT BONE CULTURE POSITIVE FOR E.FAECALIS AND STAPH COAG NEGATIVE WV W/ TRIPLE BYPASS ALLERGIES N.K.D.A. SURGICAL HISTORY STENTS PLACED IN KIDNEYS 2015 NECK FUSION 2007 TONSILS AND ADNOIDS [facility] CATH-STENTS 02/2021 SOCIAL HISTORY GENERAL: TOBACCO USE ARE YOU A:NONSMOKER NEVER SMOKER LATEX QUESTIONNAIRE LATEX ALLERGY : HAVE YOU EVER DEVELOPED ANY TYPE OF REACTION AFTER HANDLING LATEX PRODUCTS SUCH RUBBER GLOVES, CONDOMS, DIAPHRAGMS, BALLOONS, SOCKS, OR UNDERWEAR?NO LATEX ALLERGY : HAVE YOU EVER DEVELOPED ANY TYPE OF REACTION DURING OR AFTER DENTAL APPOINTMENT, VAGINAL/RECTAL EXAMINATION, SURGICAL PROCEDURE, OR ANY OTHER EXPOSURE?NO LATEX RISK : HAVE YOU EVER HAD ANY DIFFICULTY BREATHING OR HIVES AFTER EATING OR HANDLING ANY FRUITS, OR VEGETABLES; SUCH KIWI, BANANAS, STONE FRUITS, OR CHESTNUTSNO LATEX RISK : DO YOU HAVE A PREVIOUS PERSONAL HISTORY OF MORE THAN NINE SURGERIES, SPINA BIFIDA, OR REPEATED CATHERIZATIONS? NO LATEX RISK : ARE YOU FREQUENTLY EXPOSED TO LATEX PRODUCTS IN YOUR OCCUPATION?NO DATE ASKED : 03/23/2021 ALCOHOL USE: NO. ALCOHOL SCREENING DID YOU HAVE A DRINK CONTAINING ALCOHOL IN THE PAST YEAR?NO POINTS0 INTERPRETATIONNEGATIVE RECREATIONAL DRUG USE DRUG USE?NO CAFFEINE CAFFEINE USE?NO HINDUISM HINDUISM NO MANDAEN BELIEFS THAT WOULD IMPACT HEALTH CARE. 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 DIET: NO CONCENTRATED SWEETS.. EXERCISE: NO REGULAR EXERCISE. MARITAL STATUS: .. OTHERS AT HOME: DAUGHTER. HOSPITALIZATION/MAJOR DIAGNOSTIC PROCEDURE R/T SURGRIES DIVERTICULITIS 2017 CELLULITIS OF LLE 10/2017 TIAS 2014 [facility]- CARDIAC CATH- STENTS 02/2021 REVIEW OF SYSTEMS CONSTITUTIONAL: ANY RECENT FEVER NO . CHILLS NO . WEIGHT CHANGE OF UNKNOWN REASONS NO . GASTROENTEROLOGY: NEW UNEXPLAINABLE CHANGES IN BOWEL CONTROL NO . CONSTIPATION NO . GENITOURINARY: ANY NEW CHANGE IN BLADDER CONTROL? NO . NEUROLOGY: NEW ONSET DIZZINESS OR NEUROLOGICAL CHANGES NOT MENTIONED NO . NEW NUMBNESS OR PAIN PATTERNS NOT MENTIONED AND PERTINENT TO TODAY'S VISIT NO . CARDIOLOGY: NEW CHEST PRESSURE NO . PATIENT DENIES NO . RESPIRATORY: UNEXPLAINABLE COUGH NO . NEW SHORTNESS OF BREATH NO . VITAL SIGNS WT 194.8 LBS, WT-KG 88.36 KG, HT 63 IN, BMI 34.50 INDEX, RR 18 /MIN, SAFE IN ENV? (Y/N) YES, REVIEWED BY: YUDI ALVAREZ MA. EXAMINATION GENERAL EXAMINATION: GENERALNO ACUTE DISTRESS, WELL NOURISHED AND HYDRATED. PSYCHAPPROPRIATE MOOD AND AFFECT . LUNGS:CLEAR TO AUSCULTATION BILATERALLY, NO WHEEZES, RHONCHI, RALES. HEART:NO MURMURS, REGULAR RATE AND RHYTHM. ASSESSMENTS SPONDYLOSIS OF LUMBOSACRAL REGION WITHOUT MYELOPATHY OR RADICULOPATHY - M47.817 TREATMENT SPONDYLOSIS OF LUMBOSACRAL REGION WITHOUT MYELOPATHY OR RADICULOPATHY NOTES: 75-YEAR-OLD MALE IN FOR CHRONIC PAIN FOLLOW-UP. GIVEN PRESENTING SYMPTOMS RECOMMEND BUTRANS PATCH WITH FOLLOW-UP IN 1 MONTH TO DETERMINE EFFICACY OF TREATMENT. GIVEN PATIENT'S RECENT HEART ATTACK PROCEDURES ARE NOT AN OPTION AT THIS TIME. PATIENT HAS EXPRESSED UNDERSTANDING OF AND WAS IN AGREEMENT WITH TREATMENT PLAN. GIVEN TIME TO ASK QUESTIONS AND EXPRESS CONCERNS. ISTOP REGISTRY REVIEWED AND DEMONSTRATES COMPLLIANCE. (REF #[id number] ) BRINGS IN MEDICATIONS WHICH IS APPROPRIATE FOR WHAT WAS DISPENSED. RECENT URINE TOXICOLOGY REVIEWED. NO UNAUTHORIZED MEDICATIONS. NO ILLICIT SUBSTANCES AND PRESCRIBED MEDICATIONS WERE PRESENT. OTHERS START BUTRANS PATCH WEEKLY, 5 MCG/HR, 1 PATCH TO SKIN, TRANSDERMAL, WEEKLY, 30 DAYS, 4 NOTES: BUPRENORPHINE TRANSDERMAL PATCH MATERIAL WAS PRINTED AND PROVIDED TO PATIENT. PATIENT VERBALIZED AN UNDERSTANDING. SIVA ALVAREZ MA. PROCEDURE CODES [id number] ESTABILISHED PATIENT [facility] CHARGE DISPOSITION & COMMUNICATION FOLLOW UP 4 WEEKS (REASON: NEW MED) ELECTRONICALLY SIGNED BY LYUDMILA ORDONEZ ON 03/24/2021 AT 08:19 AM EDT DISCLAIMER : THIS IS A VISIT SUMMARY EXTRACTED FROM THE [facility] CHART. IT IS NOT A COPY OF THE [employer] PROGRESS NOTE. ANDREIA
== END ==
LOC: M PAIN 14:30
PROVIDERS: ATTEND Family Medicine
DX: M47.817 Spondylosis without myelopathy or radiculopathy, lumbosacral region (principal); E11.22 Type 2 diabetes mellitus with diabetic chronic kidney disease; I25.2 Old myocardial infarction; N18.30 Chronic kidney disease, stage 3 unspecified; I12.9 Hypertensive chronic kidney disease with stage 1 through stage 4 chronic kidney disease, or unspecified chronic kidney disease; Z95.5 Presence of coronary angioplasty implant and graft; Z79.891 Long term (current) use of opiate analgesic; Z79.02 Long term (current) use of antithrombotics/antiplatelets; Z79.82 Long term (current) use of aspirin

== ENCOUNTER → 2021-05-03 | Outpatient (REF) | payer MEDICARE, OTHER ==
[~2021-05-03] MED LIST changes: +DONE-1 PO; -DONETAB6 PO; -LEVO250T12 PO; +LEVO250T3 PO
== END ==
LOC: M LAB REF 16:55
PROVIDERS: ATTEND Internal Medicine Nephrology
DX: N18.31 Chronic kidney disease, stage 3a (principal)

== ENCOUNTER → 2021-05-04 | Outpatient (CLI) | payer MEDICARE, OTHER ==
[~2021-05-04] MED LIST changes: -DONE-1 PO; +DONETAB6 PO; +LEVO250T12 PO; -LEVO250T3 PO
--- NOTE | 2021-05-04 12:47 | REP ---
INDICATION: pre procedure. COMPARISON: None. TECHNIQUE: Single C-arm view right sacroiliac joint. FINDINGS: A needle overlies the inferior right sacroiliac joint. IMPRESSION: 5 seconds fluoroscopy time utilized. <Electronically signed by Nate Alba > 05/04/21 0059
== END ==
LOC: M PAIN 09:45
PROVIDERS: ATTEND Anesthesiology
DX: M46.1 Sacroiliitis, not elsewhere classified (principal); Z79.891 Long term (current) use of opiate analgesic; E11.22 Type 2 diabetes mellitus with diabetic chronic kidney disease; N18.30 Chronic kidney disease, stage 3 unspecified; I12.9 Hypertensive chronic kidney disease with stage 1 through stage 4 chronic kidney disease, or unspecified chronic kidney disease; Z98.1 Arthrodesis status; Z79.02 Long term (current) use of antithrombotics/antiplatelets; Z79.899 Other long term (current) drug therapy; Z79.82 Long term (current) use of aspirin; Z79.4 Long term (current) use of insulin

== ENCOUNTER → 2021-05-26 | Outpatient (CLI) | payer MEDICARE, OTHER | LOC: M PAIN 11:30 | PROVIDERS: ATTEND Anesthesiology | DX: M46.1 Sacroiliitis, not elsewhere classified (principal); G89.29 Other chronic pain; E11.9 Type 2 diabetes mellitus without complications; I25.2 Old myocardial infarction; Z79.01 Long term (current) use of anticoagulants; Z79.4 Long term (current) use of insulin; Z79.82 Long term (current) use of aspirin; Z79.891 Long term (current) use of opiate analgesic; Z79.899 Other long term (current) drug therapy ==

== ENCOUNTER → 2021-06-08 | Outpatient (REF) | payer MEDICARE, OTHER | LOC: M LAB REF 13:10 | PROVIDERS: ATTEND Internal Medicine Nephrology | DX: E87.5 Hyperkalemia (principal) ==

== ENCOUNTER → 2021-07-13 | Outpatient (CLI) | payer MEDICARE, OTHER | LOC: M LABSMTC 11:44 | PROVIDERS: ATTEND Anesthesiology | DX: Z01.812 Encounter for preprocedural laboratory examination (principal); Z20.822 Contact with and (suspected) exposure to COVID-19 ==

== ENCOUNTER → 2021-07-19 | Outpatient (CLI) | payer MEDICARE, OTHER ==
[~2021-07-19] MED LIST changes: +BUPIVACAINE HCL 0.25% 30ML VIAL As Ordered ONE; +DONE-1 PO; -DONETAB6 PO; +ISOVUE-M 300 61% 15ML VIAL As Ordered ONE; -LEVO250T12 PO; +LEVO250T3 PO; +LIDOCAINE 1% SDV 30ML VIAL As Ordered ONE; +TRIAMCINOLONE ACETONIDE SUSP 40 MG/ML VIAL (J3301) As Ordered ONE; +diazePAM 2 MG TAB As Ordered ONE; +oxyCODONE 5MG TAB As Ordered ONE
== END ==
LOC: M PAIN 13:20
PROVIDERS: ATTEND Anesthesiology
DX: M46.1 Sacroiliitis, not elsewhere classified (principal); E11.22 Type 2 diabetes mellitus with diabetic chronic kidney disease; I12.9 Hypertensive chronic kidney disease with stage 1 through stage 4 chronic kidney disease, or unspecified chronic kidney disease; N18.30 Chronic kidney disease, stage 3 unspecified; Z79.02 Long term (current) use of antithrombotics/antiplatelets; Z79.82 Long term (current) use of aspirin; Z79.4 Long term (current) use of insulin; Z79.899 Other long term (current) drug therapy
CPT/HCPCS: G0260; J3301; Q9967

== ENCOUNTER → 2021-08-09 | Outpatient (CLI) | payer MEDICARE, OTHER ==
[~2021-08-09] MED LIST changes: -BUPIVACAINE HCL 0.25% 30ML VIAL As Ordered ONE; -ISOVUE-M 300 61% 15ML VIAL As Ordered ONE; -LIDOCAINE 1% SDV 30ML VIAL As Ordered ONE; -TRIAMCINOLONE ACETONIDE SUSP 40 MG/ML VIAL (J3301) As Ordered ONE; -diazePAM 2 MG TAB As Ordered ONE; -oxyCODONE 5MG TAB As Ordered ONE
== END ==
LOC: M PAIN 09:30
PROVIDERS: ATTEND Nurse Practitioner Family
DX: M46.1 Sacroiliitis, not elsewhere classified (principal); G89.29 Other chronic pain; E11.9 Type 2 diabetes mellitus without complications; I25.2 Old myocardial infarction; Z79.01 Long term (current) use of anticoagulants; Z79.4 Long term (current) use of insulin; Z79.82 Long term (current) use of aspirin; Z79.891 Long term (current) use of opiate analgesic; Z79.899 Other long term (current) drug therapy

== ENCOUNTER → 2021-10-31 | Outpatient (CLI) | payer MEDICARE, BC | LOC: M PAIN 10:30 | PROVIDERS: ATTEND Nurse Practitioner Family | DX: M46.1 Sacroiliitis, not elsewhere classified (principal); E11.22 Type 2 diabetes mellitus with diabetic chronic kidney disease; I12.9 Hypertensive chronic kidney disease with stage 1 through stage 4 chronic kidney disease, or unspecified chronic kidney disease; N18.30 Chronic kidney disease, stage 3 unspecified; Z95.1 Presence of aortocoronary bypass graft; Z98.1 Arthrodesis status; Z79.02 Long term (current) use of antithrombotics/antiplatelets; Z79.82 Long term (current) use of aspirin; Z79.4 Long term (current) use of insulin; Z79.899 Other long term (current) drug therapy; Z79.891 Long term (current) use of opiate analgesic ==

== ENCOUNTER → 2022-01-18 | Outpatient (CLI) | payer MEDICARE, BC | LOC: M PAIN 11:30 | PROVIDERS: ATTEND Nurse Practitioner Family | DX: M46.1 Sacroiliitis, not elsewhere classified (principal); G89.29 Other chronic pain; E11.9 Type 2 diabetes mellitus without complications; I25.2 Old myocardial infarction; Z95.0 Presence of cardiac pacemaker; Z79.01 Long term (current) use of anticoagulants; Z79.4 Long term (current) use of insulin; Z79.82 Long term (current) use of aspirin; Z79.899 Other long term (current) drug therapy ==

== ENCOUNTER → 2022-05-11 | Outpatient (CLI) | payer MEDICARE, BC ==
[~2022-05-11] MED LIST changes: +LEVO1TAB38 PO; +LEVO1TAB40 PO; -LEVO250T3 PO; -LEVO750T13 PO
== END ==
LOC: M LABSMTC 11:07
PROVIDERS: ATTEND Anesthesiology
DX: Z01.818 Encounter for other preprocedural examination (principal); Z11.52 Encounter for screening for COVID-19

== ENCOUNTER → 2022-05-16 | Outpatient (CLI) | payer MEDICARE, BC ==
[~2022-05-16] MED LIST changes: +BUPIVACAINE HCL 0.25% 30ML VIAL As Ordered ONE; +ISOVUE-M 300 61% 15ML VIAL As Ordered ONE; +LIDOCAINE 1% SDV 30ML VIAL As Ordered ONE; +NORCO, ANEXSIA 5/325MG TABLET (HYDROcodone/ACETAMINOPHEN) As Ordered ONE; +TRIAMCINOLONE ACETONIDE SUSP 40 MG/ML VIAL (J3301) As Ordered ONE; +diazePAM 2 MG TAB As Ordered ONE
== END ==
LOC: M PAIN 11:00
PROVIDERS: ATTEND Anesthesiology
DX: M46.1 Sacroiliitis, not elsewhere classified (principal); E11.22 Type 2 diabetes mellitus with diabetic chronic kidney disease; N18.30 Chronic kidney disease, stage 3 unspecified; I12.9 Hypertensive chronic kidney disease with stage 1 through stage 4 chronic kidney disease, or unspecified chronic kidney disease; H26.9 Unspecified cataract; Z96.0 Presence of urogenital implants; Z79.02 Long term (current) use of antithrombotics/antiplatelets; Z79.4 Long term (current) use of insulin; Z79.899 Other long term (current) drug therapy
CPT/HCPCS: G0260; J3301; Q9967

== ENCOUNTER → 2022-06-01 | Outpatient (CLI) | payer MEDICARE, BC ==
[~2022-06-01] MED LIST changes: -BUPIVACAINE HCL 0.25% 30ML VIAL As Ordered ONE; -ISOVUE-M 300 61% 15ML VIAL As Ordered ONE; -LIDOCAINE 1% SDV 30ML VIAL As Ordered ONE; -NORCO, ANEXSIA 5/325MG TABLET (HYDROcodone/ACETAMINOPHEN) As Ordered ONE; -TRIAMCINOLONE ACETONIDE SUSP 40 MG/ML VIAL (J3301) As Ordered ONE; -diazePAM 2 MG TAB As Ordered ONE
== END ==
LOC: M PAIN 10:45
PROVIDERS: ATTEND Nurse Practitioner Family
DX: M46.1 Sacroiliitis, not elsewhere classified (principal); G89.29 Other chronic pain; E11.9 Type 2 diabetes mellitus without complications; I10 Essential (primary) hypertension; I25.2 Old myocardial infarction; Z95.0 Presence of cardiac pacemaker; Z79.01 Long term (current) use of anticoagulants; Z79.4 Long term (current) use of insulin; Z79.82 Long term (current) use of aspirin; Z79.899 Other long term (current) drug therapy

== ENCOUNTER → 2022-06-26 | Outpatient (CLI) | payer MEDICARE, BC | LOC: M RAD 10:03 | PROVIDERS: ATTEND Registered Nurse | DX: I70.213 Atherosclerosis of native arteries of extremities with intermittent claudication, bilateral legs (principal) ==

== ENCOUNTER → 2022-07-17 | Outpatient (CLI) | payer MEDICARE, BC | LOC: M RAD 09:14 | PROVIDERS: ATTEND Nurse Practitioner Family | DX: N18.31 Chronic kidney disease, stage 3a (principal); I70.1 Atherosclerosis of renal artery; Q61.02 Congenital multiple renal cysts ==